=== PATIENT | male | born 1965 | race Asian ===

== ENCOUNTER 2020-07-02 07:53 | Outpatient (REF) | payer OTHER, SELFPAY ==
[2020-07-02 11:16] LABS: MANUAL DIFF FLAG NO
[2020-07-02 11:22] LABS: Basophils Absolute Auto 0.1 X10*3/uL (0.0-0.2); Basophils Percent Auto 1.4 % (0-2); Eosinophils Percent Auto 17.2 % (0-4); Hematocrit 26.9 % (42-52); Hemoglobin 8.1 g/dl (14.0-18.0); Imm Gran Abs Auto 0.01 X10*3/uL (0.00-0.03); Imm Gran Pct Auto 0.2 % (0.0-0.4); Lymphocytes Percent Auto 18.6 % (20-40); Mean Corpuscular HGB Conc 30.1 g/dl (31.0-36.0); Mean Corpuscular Hemoglobin 24.3 pg (27.0-33.0); Mean Corpuscular Volume 80.8 fL (80-98); Mean Platelet Volume 9.5 fL (9.4-12.4); Monocytes Absolute Auto 0.5 X10*3/uL (0.1-1.2); Neutrophils Percent Auto 53.6 % (45-73); Platelet Count 309 X10*3/uL (160-400); Red Blood Count 3.33 X10*6/uL (4.60-5.80); Red Cell Distribution Width 16.4 % (11.0-16.0); White Blood Count 5.5 X10*3/uL (4.8-10.8)
[2020-07-02 11:27] LABS: Glucose Urine UA NEG (NEG); Leukocyte Esterase Urine NEG (NEG); Nitrite Urine NEG (NEG); Urine Blood NEG (NEG); Urine Ketones NEG (NEG); Urine Protein TRACE MG/DL (NEG-TRACE)
[2020-07-02 11:28] LABS: Appearance Urine CLEAR; Color Urine YELLOW
[2020-07-02 11:49] LABS: Alanine Aminotransferase 11 U/L (0-40); Albumin Level 4.3 g/dL (3.5-5.0); Alkaline Phosphatase 77 U/L (39-117); Anion Gap 11 (12-20); Aspartate Amino Transferase 11 U/L (5-37); Bilirubin Total 0.3 mg/dL (0.0-1.0); Blood Urea Nitrogen 12 mg/dL (9-16); Calcium 8.4 mg/dL (8.4-10.2); Carbon Dioxide 26 mmol/L (22-29); Chloride 107 mmol/L (96-108); Cholesterol 136 mg/dL; Estimated Glomerular Filt Rate > 60; Glucose Fasting 90 mg/dL (60-99); HDL Cholesterol 40 mg/dL; LDL Cholesterol Calculated 76 mg/dl; Sodium 140 mmol/L (135-145); Total Protein 6.8 g/dL (6.5-8.0); Triglycerides 101 mg/dL
[2020-07-02 11:53] LABS: TSH reflex Free T4 1.75 mIU/mL (0.32-4.0)
== END 2020-07-02 07:54 | disposition home or self-care (01) ==
LOC: HO.HMGCLDS 07:53
PROVIDERS: PCP Internal Medicine; Visit Provider Internal Medicine
DX: I10 Essential (primary) hypertension (principal); E78.00 Pure hypercholesterolemia, unspecified
CPT/HCPCS: 36415; 80053; 80061; 81003; 84443; 85025

== ENCOUNTER 2021-01-02 17:00 | Outpatient (RCR) | payer OTHER, SELFPAY ==
--- NOTE | 2020-12-05 18:13 | MHC.PT.EP ---
[facility] [place] Office [place] Office [place] Office [address] Ibeth Coker [address] [phone] F: [phone] F: [phone] F: [phone] F: [phone] Physical Therapy Plan of Care Date of Evaluation: Date of Surgery: N/A Diagnosis: CVA; R hemiplegia Assessment: pt presents to physical therapy with pain, decreased range of motion, decreased strength, impaired functional mobility, impaired postural awareness, and gait deviations. pt is a poor candidate for skilled PT due to age, potential remediation of impairments, typical disease/condition progression and prognosis, comorbidities, and motivation. pt would benefit from tailored strengthening and stretching exercise program, functional training, gait training, postural re-training, neuromuscular re-education, modalities as needed for pain, equipment safety demonstration. Frequency and Duration: The patient will be seen 1x/wk for 4 wks Short Term Goals: pt will follow two step commands w/ minimal to no verbal cueing 3/3 attempts. Fdc Goals: pt will demo no hesitancy or pauses w/ ambulation on even ground using LRAD to reduce fall risk. Treatment Plan: Modalities to reduce pain, spasms and effusion. Manual therapy to restore motion and function. Therapeutic exercise to improve strength and flexibility. Neuromuscular re-education for posture and balance. Therapeutic activities to return to functional activities of daily living. Electronically signed by: Neema Hi PT, DPT Please sign and return to therapist. Thank you for your referral.
--- NOTE | 2021-01-02 18:02 | MHC.PT.DC ---
[facility] [place] Office [place] Office [place] Office [address] Ibeth Coker 140 [facility] [phone] F: [phone] F: [phone] F: [phone] F: [phone] Physical Therapy Discharge Report Diagnosis: CVA; R hemiplegia Date of Surgery: N/A Date of Evaluation: 12/05/20 Date of Discharge: 01/02/21 Treatments to Date: 5 Cancellations to Date: 0 No Shows to Date: 0 Discharge Status: Improved Function Independent with HEP Discharge Summary: Throughout this plan of care the patient had difficulty following instructions from this therapist as well as his . He would become upset when the exercise or activity was changed. He had poor eccentric control and poor carryover when instructed to slow the pace of the exercise down. The patient's was educated on safe transfers and safety features of the patient's wheelchair they were previously not aware of. Overall, the patient's stated he is ambulating more at home and his gait quality is better. I advised the patient and his to continue with the home exercise program for a month and if he appears to regress or needs his program updated to return to PT at that time. He is discharged from this physical therapy plan of care at this time. Electronically signed by: Neema Hi PT, DPT Please sign and return to therapist. Thank you for your referral.
== END 2021-01-02 18:03 | disposition home or self-care (01) ==
LOC: HO.PT 17:00
PROVIDERS: PCP Internal Medicine; Visit Provider Internal Medicine
DX: I63.9 Cerebral infarction, unspecified (principal); G81.91 Hemiplegia, unspecified affecting right dominant side
CPT/HCPCS: 97110; 97162; 97530

== ENCOUNTER 2021-02-09 08:09 | Outpatient (REF) | payer OTHER, SELFPAY ==
[2021-02-09 08:52] LABS: MANUAL DIFF FLAG NO
[2021-02-09 08:59] LABS: Basophils Absolute Auto 0.1 X10*3/uL (0.0-0.2); Basophils Percent Auto 1.4 % (0-2); Eosinophils Absolute Auto 0.7 X10*3/uL (0.0-0.4); Eosinophils Percent Auto 10.8 % (0-4); Hematocrit 46.4 % (42-52); Hemoglobin 15.1 g/dl (14.0-18.0); Imm Gran Abs Auto 0.01 X10*3/uL (0.00-0.03); Imm Gran Pct Auto 0.2 % (0.0-0.4); Lymphocytes Percent Auto 15.2 % (20-40); Mean Corpuscular HGB Conc 32.5 g/dl (31.0-36.0); Mean Corpuscular Hemoglobin 26.7 pg (27.0-33.0); Mean Platelet Volume 9.7 fL (9.4-12.4); Monocytes Absolute Auto 0.5 X10*3/uL (0.1-1.2); Neutrophils Absolute Auto 4.2 X10*3/uL (2.0-8.3); Neutrophils Percent Auto 64.4 % (45-73); Platelet Count 214 X10*3/uL (160-400); Red Blood Count 5.66 X10*6/uL (4.60-5.80); White Blood Count 6.5 X10*3/uL (4.8-10.8)
[2021-02-09 09:35] LABS: Alanine Aminotransferase 17 U/L (0-40); Albumin Level 4.1 g/dL (3.5-5.0); Alkaline Phosphatase 90 U/L (39-117); Anion Gap 11 (12-20); Aspartate Amino Transferase 14 U/L (5-37); Bilirubin Total 0.6 mg/dL (0.0-1.0); Blood Urea Nitrogen 12 mg/dL (9-16); Calcium 9.1 mg/dL (8.4-10.2); Carbon Dioxide 27 mmol/L (22-29); Chloride 107 mmol/L (96-108); Cholesterol 132 mg/dL; Estimated Glomerular Filt Rate > 60; Glucose Fasting 95 mg/dL (60-99); HDL Cholesterol 35 mg/dL; Iron 93 mcg/dL (45-160); LDL Cholesterol Calculated 66 mg/dl; Percent Iron Saturation 31 % (15-50); Potassium 3.8 mmol/L (3.3-5.1); Sodium 141 mmol/L (135-145); Total Iron Binding Capacity 300 mcg/dL (228-428); Total Protein 6.9 g/dL (6.5-8.0); Triglycerides 155 mg/dL; Unsaturated Iron Binding 207 ug/dL
[2021-02-09 09:38] LABS: Valproate 23.4 mcg/mL (50.0-100.0)
[2021-02-09 10:04] LABS: Vitamin D 25-OH Total 24.2 ng/mL (>30)
[2021-02-11 09:04] LABS: Folate 19.2 ng/mL (> or = 4.0); Vitamin B12 673 pg/mL (200-900)
== END 2021-02-09 08:10 | disposition home or self-care (01) ==
LOC: HO.LAB 08:09
PROVIDERS: PCP Internal Medicine; Visit Provider Internal Medicine
DX: I10 Essential (primary) hypertension (principal); D50.9 Iron deficiency anemia, unspecified; E78.00 Pure hypercholesterolemia, unspecified; F06.30 Mood disorder due to known physiological condition, unspecified; G81.91 Hemiplegia, unspecified affecting right dominant side; E55.9 Vitamin D deficiency, unspecified; Z86.73 Personal history of transient ischemic attack (TIA), and cerebral infarction without residual deficits
CPT/HCPCS: 36415; 80053; 80061; 80164; 82306; 82607; 82746; 83540; 85025

== ENCOUNTER 2021-05-29 17:00 | Outpatient (RCR) | payer OTHER, SELFPAY ==
--- NOTE | 2021-04-04 11:46 | MHC.PT.EP ---
[facility] [place] Office [place] Office [place] Office [address] Ibeth Coker [address] [phone] F: [phone] F: [phone] F: [phone] F: [phone] Physical Therapy Plan of Care Date of Evaluation: Date of Surgery: N/A Diagnosis: Cerebral infarction,unspecified Hemiplegia, unspecified affecting R dominant side Assessment: Pt is a 55yo M with a history of multiple CVA's affecting R dominant side. He was seen for PT at this facility from 12/05/20-01/02/21 and pt and report improvements in functional mobility while in PT. Today he presents with current impairments in safety, strength, endurance, sit<>stands, transfers, gait, and balance. He requires cues for safety and environmental set up during functional mobility. He is a fair candidate for skilled PT services due to chronicity of diagnosis and fair carry over of previous treatment however he will benefit from strength, balance, and gait interventions to improve mobility and prevent risk of falls. He will be seen for PT at this facility for 1x/week for 4 weeks and will be reassessed at that time to determine if further treatment is needed. Frequency and Duration: The patient will be seen 1x/week for 4 weeks Short Term Goals: Pt will follow 2 step commands with minimal cues 3/3 times Pt will perform sit<>stands with proper HP ~50% of the time Snf Goals: Pt will perform SPTs with improved safety and set up at least 90% of the time Pt and caregiver will demonstrate good carry over of w/c set up and transfer techniques Pt will ambulate short, household distances safely with LRAD with MS Treatment Plan: Modalities to reduce pain, spasms and effusion. Manual therapy to restore motion and function. Therapeutic exercise to improve strength and flexibility. Neuromuscular re-education for posture and balance. Therapeutic activities to return to functional activities of daily living. Electronically signed by: Leonie Castanon, PT, DPT Please sign and return to therapist. Thank you for your referral.
--- NOTE | 2021-06-04 11:59 | MHC.PT.DC ---
[facility] [place] Office [place] Office [place] Office [address] Ibeth Coker [address] [phone] F: [phone] F: [phone] F: [phone] F: [phone] Physical Therapy Discharge Report Diagnosis: Cerebral infarction,unspecified Hemiplegia, unspecified affecting R dominant side Date of Surgery: N/A Date of Evaluation: 04/03/21 Date of Discharge: 06/04/21 Treatments to Date: 7 Cancellations to Date: No Shows to Date: Discharge Status: Improved Function Independent with HEP Discharge Summary: Pt was seen for skilled PT services from 04/03/21-05/29/21. Pt made fair progress since SOC. He demonstrates improvements in strength and balance noted throughout functional mobility. He continues to be inconsistent with following 2 step commands during exercises. He has improved his hand placement during transfers most of the time, and has improved safety with sit<>stands. Pt and his caregiver continue to require cues for safety for proper set up of environment prior to stand pivot transfers with fair-good carry over. It is recommended he use a RW for functional mobility as he relies on UE's for support during gait. He was also recommended to follow up with his doctor regarding recommendations for transfer w/c. Pt is being D/C from skilled PT services as he has reached a functional plateau. Provided pt with printed, updated copy of HEP and pt and his verbalized understanding. Pt and his report no further questions or concerns for PT at last attended visit. No further skilled PT services indicated at this time. Electronically signed by: Leonie Castanon, PT, DPT Please sign and return to therapist. Thank you for your referral.
== END 2021-06-04 11:59 | disposition home or self-care (01) ==
LOC: HO.PT 17:00
PROVIDERS: PCP Internal Medicine; Visit Provider Internal Medicine
DX: I63.9 Cerebral infarction, unspecified (principal); G81.91 Hemiplegia, unspecified affecting right dominant side
CPT/HCPCS: 97110; 97116; 97140; 97162; 97530

== ENCOUNTER 2021-06-11 08:40 | Outpatient (REF) | payer OTHER, SELFPAY ==
[2021-06-11 09:02] LABS: MANUAL DIFF FLAG NO
[2021-06-11 09:19] LABS: Basophils Absolute Auto 0.1 X10*3/uL (0.0-0.2); Basophils Percent Auto 0.9 % (0-2); Eosinophils Absolute Auto 0.8 X10*3/uL (0.0-0.4); Eosinophils Percent Auto 10.5 % (0-4); Hemoglobin 15.2 g/dl (14.0-18.0); Imm Gran Abs Auto 0.02 X10*3/uL (0.00-0.03); Imm Gran Pct Auto 0.3 % (0.0-0.4); Lymphocytes Absolute Auto 1.1 X10*3/uL (1.2-4.9); Lymphocytes Percent Auto 14.5 % (20-40); Mean Corpuscular Hemoglobin 29.3 pg (27.0-33.0); Mean Corpuscular Volume 88.8 fL (80.0-98.0); Mean Platelet Volume 9.2 fL (9.4-12.4); Monocytes Absolute Auto 0.7 X10*3/uL (0.1-1.2); Monocytes Percent Auto 9.3 % (2-11); Neutrophils Percent Auto 64.5 % (45-73); Platelet Count 207 X10*3/uL (160-400); Red Blood Count 5.18 X10*6/uL (4.60-5.80); Red Cell Distribution Width 12.2 % (11.0-16.0); White Blood Count 7.7 X10*3/uL (4.8-10.8)
[2021-06-11 09:56] LABS: Alanine Aminotransferase 16 U/L (0-40); Alkaline Phosphatase 84 U/L (39-117); Anion Gap 10 (12-20); Aspartate Amino Transferase 13 U/L (5-37); Bilirubin Total 0.6 mg/dL (0.0-1.0); Blood Urea Nitrogen 12 mg/dL (9-16); Calcium 9.2 mg/dL (8.4-10.2); Carbon Dioxide 27 mmol/L (22-29); Chloride 108 mmol/L (96-108); Cholesterol 154 mg/dL; Estimated Glomerular Filt Rate > 60; Glucose Fasting 96 mg/dL (60-99); HDL Cholesterol 37 mg/dL; LDL Cholesterol Calculated 82 mg/dl; Sodium 141 mmol/L (135-145); Total Protein 6.8 g/dL (6.5-8.0); Triglycerides 176 mg/dL
[2021-06-11 10:21] LABS: TSH reflex Free T4 1.45 uIU/mL (0.32-4.0); Vitamin D 25-OH Total 46.2 ng/mL (>30)
== END 2021-06-11 08:41 | disposition home or self-care (01) ==
LOC: HO.LAB 08:40
PROVIDERS: PCP Internal Medicine; Visit Provider Internal Medicine
DX: E78.00 Pure hypercholesterolemia, unspecified (principal); I10 Essential (primary) hypertension; E55.9 Vitamin D deficiency, unspecified
CPT/HCPCS: 36415; 80053; 80061; 82306; 84443; 85025

== ENCOUNTER → 2021-12-02 14:45 | Outpatient (BNVA) | payer OTHER, SELFPAY | PROVIDERS: PCP Internal Medicine; Referring Provider Internal Medicine; Visit Provider Nurse Practitioner | DX: R13.12 Dysphagia, oropharyngeal phase (principal) | CPT/HCPCS: 99202 ==

== ENCOUNTER 2022-02-12 14:14 | Outpatient (REF) | payer OTHER, SELFPAY ==
--- NOTE | ~2022-02-12 | FL_ITS ---
EXAMINATION: XR BARIUM SWALLOW CLINICAL INFORMATION: Dysphagia. COMPARISON: None. TECHNIQUE: Routine modified barium swallow was performed under lateral fluoroscopy in the presence of the speech therapist. FINDINGS: Following oral administration of thin barium and barium-coated puree, there is premature spillage from the oral cavity and the pharynx with laryngeal aspiration. On oral administration of honey and nectar consistency barium there is penetration but no laryngeal aspiration is seen. The patient did not tolerate solid food coated with barium. FLUOROSCOPY TIME: 4.6 minutes. DOSE AREA PRODUCT: 16.982 uGy-m2 (microgray-meter squared). FL/FL barium swallow modified IMPRESSION: Nitish laryngeal aspiration with thin barium and barium-coated puree.
--- NOTE | 2022-02-21 17:28 | MHC.SL.IMP ---
Date of Plan of Treatment: 02/12/22 Onset of Symptoms/Illness: 02/12/17 Date Treatment Started: 02/12/22 Admitting Diagnosis: Dysphagia Vitamin D deficiency Hypertension High cholesterol CVA x 3 w/ right hemiplegia Mood disorder Iron deficiency anemia Primary Speech & Language Diagnosis: R13.12 Oropharyngeal Phase Dysphagia Secondary Speech & Language Diagnosis: R47.01 Aphasia Reason for Today's Visit: 79988 Modified Barium Swallow Study Pre-evaluation Dietary Consistencies: Regular Pre-evaluation Liquid Consistency: Thin Pre-evaluation Medication Administration: Whole with Liquid Medical History: [place], [place] Modified Barium Swallow Study Fluoroscopic Evaluation of Swallowing Function CPT Code 34004 Evaluation Year: 2021 Reason for Study: Patient displays overt s/s of aspiration. Referring Physician: Meghan [place] NP Evaluating Clinician: Tamela Shell MA, CCC-BLOOD BANK ATTENDANT Study Number: 1 Patient Name: Bebe Brual Status: Outpatient, Wheelchair Age: 56 Gender: Male MEDICAL HISTORY: Year of Onset or Diagnosis: 2021 Comorbidities: Dysphagia Vitamin D deficiency Hypertension High cholesterol CVA x 3 w/ right hemiplegia Mood disorder Iron deficiency anemia Current (pre-evaluation) Intake/Diet: Route: PO Diet Grade: Regular Liquid Consistencies: Thin Pre-Study Functional Oral Intake Scale (FOIS): 7- Total oral intake with no restrictions Pain: None reported at time of study SUBJECTIVE: Pt is a 56 year old male accompanied to this exam by his , Lainey, who assisted in providing background information included in this report. Pt was referred for a modified barium swallow study by Meghan BARRIOS of Gastroenterology d/t reports of dysphagia. Pt reportedly has difficulty swallowing solid food, foods such as rice, and sometimes liquids, and ?has an easier time eating foods such as yogurt and applesauce.? Pt?s reports that she cuts up all of pt?s food into very small pieces, especially meats. She says that pt often pours coffee on his food to make it easier to swallow. Pt?s reports that pt does not appear to ?use his tongue or his teeth to chew,? and ?will stick his fingers in his mouth to push the food back down.? Pt?s also reports intermittent coughing and choking, which she reports seems to happen at random. Pt?s reports pt had a stroke back in 2005, but did not seem to have trouble swallowing until recent years. She reports onset of dysphagia approximately 5 years ago, which seems to be worsening lately. Oral Motor Exam Mouth Occlusion: Normal Tongue Size: Normal Tongue Excursion Description: Incomplete Tongue Range of Movement Description: Reduced Tongue Speed of Movement Description: Reduced Tongue Strength of Movement (against opposing pressure): Reduced Food and Liquid Trials: Oral Impairment: Lip Closure: Did not test Oral Impairment: Tongue Control During Bolus Hold: 3=Posterior escape of greater than half of bolus Oral Impairment: Bolus Preparation/Mastication: Did not test Oral Impairment: Bolus Transport/Lingual Motion: 3=Repetitive/disorganized tongue motion Oral Impairment: Oral Residue: 2=Residue collection on oral structures Oral Impairment:Initiation of Pharyngeal Swallow: 3=Bolus head in pyriforms Pharyngeal Impairment: Soft Palate Elevation: 0=No bolus between soft palate (SP)/pharyngeal wall (PW) Pharyngeal Impairment: Laryngeal Elevation: 2=Minimal superior movement of thyroid cartilage (see description) Pharyngeal Impairment: Anterior Hyoid Excursion: 2=No anterior movement Pharyngeal Impairment: Epiglottic Movement: 2=No inversion Pharyngeal Impairment: Laryngeal Vestibular Closure:: 1=Incomplete: narrow column air/contrast in laryngeal vestibule Pharyngeal Impairment: Pharyngeal Stripping Wave: 1=Present: diminished Pharyngeal Impairment: Pharyngeal Contraction: Did not test Pharyngeal Impairment: Pharyngoesophageal Segment Openin=Complete distension and complete duration: no obstruction of flow Pharyngeal Impairment: Tongue Base (TB) Retraction: 3=Wide column of contrast/air between TB and posterior PW Pharyngeal Impairment: Pharyngeal Residue: 1=Trace residue within or on pharyngeal structures Pharyngeal Impairment: Esophageal Clearance Upright Position: Did not test Impressions and Recommendations Clinical Observations: OBJECTIVE: Time-out: performed at 02:45 Evaluation Start: 02:30; Stop: 02:40 Patient Positioning: Seated 70-90 degrees Viewing Planes: LATERAL ONLY Contrast: MBSImP? Standardized Protocol using commercially prepared, standardized Barium viscosities, including: Varibar? THIN LIQUID (40% w/v, <15 cps) , Varibar? NECTAR (40% w/v, <150-450 cps) , Varibar? THIN HONEY (40% w/v, <800-1800 cps) MBSImP ID: [id number] MBSImP Results: Lip closure for intraoral bolus containment could not be assessed due to logistical reasons not related to physiologic impairment. Tongue control during bolus hold allowed posterior escape of greater than half of the bolus. Bolus preparation and mastication received the highest impairment score; solid not given due to patient safety concerns related to oral impairment. Bolus transport/lingual motion was with repetitive/disorganized motion of the tongue. Oral residue was a collection on oral structures. Initiation of the pharyngeal swallow occurred when the bolus head was in the pyriform sinuses. Soft palate elevation resulted in no bolus between the soft palate and the pharyngeal wall. Laryngeal elevation was incomplete, as indicated through minimal superior movement of the thyroid cartilage with minimal approximation of the arytenoids to the epiglottic petiole. Anterior hyoid excursion demonstrated no movement. Epiglottic movement resulted in no inversion. Laryngeal vestibular closure was incomplete, with a narrow column of air/contrast noted within the laryngeal vestibule at the height of the swallow. Pharyngeal stripping wave was present, but diminished. Pharyngeal contraction could not be determined due to logistical reasons not related to physiologic impairment. Pharyngoesophageal segment opening was completely distended for complete duration with no obstruction of bolus flow. Tongue base retraction allowed a wide column of contrast or air between the retracted tongue base and the posterior pharyngeal wall. Pharyngeal residue was a trace within or on pharyngeal structures. Esophageal clearance in the upright position could not be assessed due to logistical reasons not related to physiologic impairment. Oral Impairment Score: 14 (absence of score, component 1) Pharyngeal Impairment Score: 11 (absence of score, component 13) Esophageal Impairment Score: --- (absence of score, component 17) Laryngeal Penetration and Aspiration: Both Penetration and Aspiration were observed in today's study. [place]-thick Contrast entered the airway, contacted the vocal folds, and was not ejected from the airway. Thin Contrast entered the airway, passed below the vocal folds, and no effort was made to eject. ASSESSMENT: Clinician Assessment: This exam was conducted by a multidisciplinary team, included a speech pathologist, radiologist, and porcelain technician. Pt was seated upright at 90 degree angle in a chair for this exam. Pt trialed the following liquid and solid consistencies: thin liquid barium by teaspoon, nectar thick liquid barium by teaspoon, honey thick liquid barium by teaspoon, pureed solid (mixture applesauce with barium paste). Pt presents with severe oropharyngeal dysphagia. Observed severe impairments of the oral phase. Poor tongue control and difficulty with bolus formation. There was escape of greater than 50% of bolus posteriorly prior to the initiation of the pharyngeal swallow trigger. Contrast pooled and collected in the valleculae and pyriform sinuses prior to initiation of the pharyngeal swallow. Pt was given a very small bite of ground chicken mixed with barium. Pt displayed minimal to no chewing of this consistency, eventually spitting it out entirely. Pt was unable to tolerate ground texture. Pt presented with characteristic tongue pumping movements. Pt?s tongue rocked with anterior to posterior motions repetitively for transport of bolus. There was mild residue coating the tongue. Pt presented with severe impairments of the pharyngeal phase of the swallow. Significant delay of pharyngeal swallow trigger, initiated as bolus head reached pyriform sinuses. There was no nasopharyngeal reflux. Minimal superior movement of the thyroid cartilage with no anterior hyoid displacement and minimal to no epiglottic inversion. Incomplete laryngeal vestibular closure resulting in episodes of aspiration and penetration. Trace pharyngeal residue subsequently cleared. There was no obstruction of flow through the pharyngoesophageal segment opening. With trial of thin liquid, trace amount of contrast entered the airway during the swallow, passing below the vocal folds and resulting in tracheal aspiration. Pt did not produce spontaneous protective cough. Pt was instructed to produce a volitional cough and was provided with models, but did not follow this command. Noted deep penetration with trial of nectar thick liquid, which did not clear from trachea. Patient did not have spontaneous cough and did not produce volitional cough as instructed. There was trace aspiration on residuals after the swallow with trial of applesauce. No evidence of aspiration or penetration with multiple trials of honey thick liquid by jie. Patient history with the following compensatory strategies is unknown. When employed during today's study, these strategies improved swallowing function: Honey-thick Liquid eliminated Penetration, Aspiration Bolus Volume Change decreased Penetration, Aspiration Additional Swallow(s) per Bolus eliminated Oral Residue, Pharyngeal Residue The following compensatory strategies appear to have had a negative impact on swallowing function: [place]-thick Liquid increased Penetration Recommendation for Speech Therapy: Outpatient Speech Therapy vs. Speech Therapy through [facility] PLAN: Intake Recommendations: Route: Partial PO/Partial Alternate Diet Grade: Liquid Consistencies: Honey Post-Study Functional Oral Intake Scale (FOIS): 5- Total oral intake of multiple consistencies requiring special preparation Safest consistency identified for oral intake based on observations made during this exam is honey thick, w/ no evidenced aspiration or penetration with multiple trials. Based on these objective results, concern lies in pt?s risk of aspiration and in his ability to maintain adequate nutrition and hydration on a conservative diet. Recommend consultations with pt?s MD, Gastroenterology, and Nutrition to determine if alternative means of nutrition is an appropriate option for this patient, w/ Partial PO when working with speech pathologist or for supplemental feeding (honey thick liquids). With the knowledge and understanding of the risks of aspiration, if the decision is made to keep pt on PO only and to forgo alternative means at this time, pt and his manager science may consider a pudding thick diet CONGEALED textures only with honey thick liquids by jie. Recommend select thick, more viscous, and thoroughly blended purees, such as pudding and thick yogurt, which form a cohesive bolus on the spoon. Avoid purees such as applesauce and pureed peaches, as these often separate into a mixed texture with thin liquid. As evidenced during our exam, pt is at risk of aspiration with this texture. Recommend strict aspiration precautions and a strict oral care routine to reduce risk of aspiration pneumonia: Use small sponge to remove dried secretions, wash with toothbrush and toothpaste, rinse with mouthwash that does not contain alcohol. Oral care to be provided before pt?s first meal and after each meal. Recommend speech therapy for dysphagia on an outpatient basis or through [facility], w/ follow-up MBSS post-treatment. Ultimate decision for nutritional intake is to be made by the patient, his caregiver/family, and his medical team with consideration of the totality of the patient, other concomitant conditions, and overall quality of life. Suggested Referrals: The patient might benefit from a referral to: Gastroenterology, Nutrition Services Therapy Recommendations: Therapy will be initiated Prognosis for Improvement: The prognosis for the patient to meet nutritional needs by mouth is fair based on degree of impairment, stimulability for treatment. Skilled Nursing Goals: ? The patient will tolerate the least restrictive diet with a safe/efficient swallow to maintain adequate nutrition and hydration. ? The patient will demonstrate improved swallowing function via repeat clinical evaluation, videoendoscopy/videofluoroscopy and/or patient self-rating scores. ? The patient and/or family will participate in further education for swallowing goals. Short Term Goals: ? Diet - The patient will tolerate a pudding thick diet, honey thick liquids without signs or symptoms of penetration/aspiration 100% of the time. ? Guidelines - The patient will comply with/recall the following guidelines/strategies 80% of the time with maximum cuing: Honey-thick Liquid, Bolus Volume Change, Rate of Ingestion Change, Bolus Hold, Additional Swallow(s) per Bolus, Effortful Swallow (used during PO intake). ? Independent Home Exercise - The patient will perform 10 repetitions of the Effortful Swallow, Soledad Maneuver, Irish Maneuver 3 times a day with 100% accuracy and maximum cuing as part of a home exercise program. ? Structured Therapy - The patient will demonstrate 100% accuracy and require maximum cuing in structured swallowing therapy with the BLOOD BANK ATTENDANT using the following exercises/therapy approaches and therapy assisted devices: Effortful Swallow, Soledad Maneuver, Irish Maneuver, . ? Education - The patient, family, caregiver will verbalize/demonstrate understanding of the results of this evaluation, the above recommendations, and the swallowing guidelines. Clinician - Supplemental, Miscellaneous Communication: It is important to note MBSS objective studies are snapshots in time and Patient function might vary with factors such as time of day or concomitant medical conditions. For this reason, the final treatment plan for this patient should rest with their medical care team. Additional recommendations should be considered with the totality of the Patient in mind. Thank for the opportunity to participate in the care of this patient. If you have any questions about the content of this report, please contact the [facility] at [facility]. Education: Education regarding findings from today's study and plans for therapy were provided to Patient and family/caregiver through Verbal Instruction, Written Instruction. Understanding was expressed by the Patient and family/caregiver. Keying Machine Operator Clinician/Clinical Fellow: No Supervisory Statement: N/A Speech Language Pathologist: Tamela Shell M.A., [facility]-BLOOD BANK ATTENDANT
== END 2022-02-12 14:15 | disposition home or self-care (01) ==
LOC: HO.XRAY 14:14
PROVIDERS: Visit Provider Nurse Practitioner
DX: R13.12 Dysphagia, oropharyngeal phase (principal)
CPT/HCPCS: 74230; 92611

== ENCOUNTER 2022-04-14 12:42 | Day surgery (SDC) | payer OTHER, SELFPAY ==
[2022-04-14 12:59] VITALS: BP 136/84; PULSE 70; RESP 16; TEMP 36.5; O2SAT 98; BMI 24.2
[2022-04-14] MEDS: Lactated Ringers 1,000 ML 50 ML IVCONT (13:09)
--- NOTE | 2022-04-14 13:38 | MHC.SHP ---
Pre-Procedural Eval Section A Date of Service: 04/14/22 The patient is an INPATIENT: No The History & Physical has been completed within 30 days and I have reviewed it.: No Section B Chief Complaint: Dysphagia, unspecified Relevant Family History (Specify if Yes): No Relevant Social History: None Present Medications: see Short Stay Collaborative assessment Medical History: Significant History (Hypertension High cholesterol CVA x3 with right hemiplegia Mood disorder Iron deficiency anemia) History of Previous Operations: Relevant previous surgery/procedure and date(s) (cyst removal) Allergies: Allergies Allergy/AdvReac Type Severity Reaction Status Date / Time No Known Allergies Allergy Verified 03/09/22 21:45 Review of Systems Sugical H&P ROS: Negative: Constitution, Cardiovascular and Respiratory and Yes, Specify: Neurological (status post CVA) and Gastrointestinal (dysphagia) Exam Surgical H&P Exam: Normal: Heart, Normal: Lungs, Normal: Extremities and Normal: Abdomen Plan Diagnosis/Plan: Unchanged I have reviewed the history and physical and performed a pertinent physical examination on my patient. No changes have occurred unless specified.
--- NOTE | 2022-04-14 14:28 | P.CONAN_ITS ---
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) (Acute) Pure hypercholesterolemia (Acute) Benign essential hypertension (Acute) CVA (cerebral vascular accident) (Acute) Past Medical History Medical History Benign essential hypertension Cerebrovascular accident (CVA) CVA (cerebral vascular accident) Iron deficiency anemia 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) Pure hypercholesterolemia Right hemiplegia Vitamin D deficiency Family History Family History Other Family history non-contributory Family history of problems with anesthesia: No Surgical History Surgical History No significant past surgical history History of Problems with Anesthesia: No Social History Social History Housing: House Alcohol intake: former Patient Tobacco Use Status: Never used Tobacco Second Hand Smoke Exposure: No Use of substances other than those prescribed or required for medical reasons: No Are you DNR?: No Advance Directives: No Advance Directives Information Provided: Yes Advance Directives on File: No service: No Current occupational status: disabled Cognitive needs: Yes (wheelchair) Hearing needs: No Vision needs: No Meds Allergies Allergy/AdvReac Type Severity Reaction Status Date / Time No Known Allergies Allergy Verified 03/09/22 21:45 Active Medications: Current Medications Lactated Ringer's (Lr) 1,000 mls @ 50 mls/hr IVCONT .Q20H ALBERT Last Admin: 04/14/22 13:09 Dose: 50 mls/hr Exam Exam Date and Time: April 14, 2022 1428 Height,Weight and Vital Signs: Height 5 ft 6 in Weight 68.039 kg Last Vital Signs Temp 97.7 F 04/14/22 12:59 Pulse 70 04/14/22 12:59 Resp 16 04/14/22 12:59 BP 136/84 10/31/22 12:59 Pulse Ox 98 04/14/22 12:59 O2 Del Method 04/14/22 12:59 Airway Mallampati Class: II TM Dist: >3cm Neck ROM: Full Denture: Upper Heart: rrr Lungs: cta Assessment and Plan Assessment Anesthesia Assessment: Anesthesia Plan Discussed and Chart Reviewed Final Anesthetic Review Family History of Problems with Anesthesia: No History of Problems with Anesthesia: No NPO: Yes ASA Class: III Final Preanesthetic Review: No Changes in Pt Med Stat, Meds/Allgs Chart Reviewed and Consent Obtained/Reviewed Patient Risk: Intermediate Procedure Risk: Intermediate Anesthetic Plan Anesthetic Plan: MAC: Disposition: Standard PACU
--- NOTE | 2022-04-14 14:35 | PM.OP ---
Brief Operative Note Date of Service: 04/14/22 Pre-op diagnosis: Oropharyngeal dysphagia Post-op diagnosis: other (Ulcerated esophageal mass, hiatal hernia) Procedure: EGD WITH BIOPSIES Surgeon: Karen Ricardo MD Anesthesia: MAC Was an Circuit Board Drafter used for this Procedure?: Yes Circuit Board Drafter: Feng Crowder Estimated blood loss (mL): 1 Pathology: other (a. esophagus bxs) Condition: stable Disposition: PACU
--- NOTE | 2022-04-14 14:35 | W.PM.OPN ---
Operative Note Operative Note Date of Service: 04/14/22 Narrative: Pre-op diagnosis: Oropharyngeal dysphagia Post-op diagnosis:?other (Ulcerated esophageal mass, hiatal hernia) Surgeon: Karen Ricardo MD Anesthesia:?MAC FLEXIBLE TRANSORAL UPPER GASTROINTESTINAL ENDOSCOPY WITH BIOPSIES Consent: Indications for the procedure and potential complications of bleeding, perforation, reaction to medications and missed diagnosis were discussed with the patient and informed consent was obtained. Instrument: Olympus GIF H 190 mid size upper endoscope Monitoring: Vital signs and clinical assessment, continuous EKG monitoring, Pulse oximetry, Carbon Dioxide monitoring and blood pressure monitoring were done throughout the procedure. Procedure: The patient was placed in the left lateral decubitis position and pre-procedure medications were administered and a bite block was placed. The endoscope was inserted into the mouth and advanced under direct vision to the third part of duodenum. A careful inspection was made as the upper endoscope was withdrawn including a retroflexed examination of the proximal stomach; Findings and interventions are described below. Findings: Larynx: Normal Esophagus: GE junction at 35 cms, hiatal hernia 35 to 40 cms. A 2 cms polypoidal ulcerated mass from 33 to 35 cms with partial narrowing - multiple biopsies were obtained. A mid size upper endoscope passed through the mass with minimal resistance. Stomach: Normal gastric mucos. Grade 4 flap valve on retroflexed examination of the cardia. Duodenum: Normal bulb and descending duodenum Intervention: Biopsies as noted above Impression and Post Procedure Diagnosis: Endoscopy Findings: ESOPHAGUS: GE junction at 35 cms, hiatal hernia 35 to 40 cms. A 2 cms polypoidal ulcerated mass from 33 to 35 cms with partial narrowing - multiple biopsies were obtained. A mid size upper endoscope passed through the mass with minimal resistance. Plan: Await pathology results. Further evaluation with Chest CT scan and referral to Oncology if biopsies confirm esophageal cancer. Patient has an appointment on 04/29/22 in the GI Clinic with Meghan Washington NP. Above findings were reviewed with the patient's (and HCP)
[2022-04-14 15:05] VITALS: BP 114/79; PULSE 77; RESP 16; TEMP 36.6; O2SAT 96
[2022-04-14 15:20] VITALS: BP 137/83; PULSE 80; RESP 16; O2SAT 97
[2022-04-14 15:35] VITALS: BP 144/89; PULSE 82; RESP 16; TEMP 36.5; O2SAT 98
== END 2022-04-14 15:15 | disposition home or self-care (01) ==
PROVIDERS: PCP Internal Medicine; Visit Provider Internal Medicine Gastroenterology
PROC: 0DJ08ZZ Inspection of Upper Intestinal Tract, Via Natural or Artificial Opening Endoscopic (ICD-10-PCS; CPT 43235; principal; 2022-04-14 13:30)
DX: R13.12 Dysphagia, oropharyngeal phase (principal); K22.10 Ulcer of esophagus without bleeding; K44.9 Diaphragmatic hernia without obstruction or gangrene; I10 Essential (primary) hypertension; I69.951 Hemiplegia and hemiparesis following unspecified cerebrovascular disease affecting right dominant side; D50.9 Iron deficiency anemia, unspecified; E78.00 Pure hypercholesterolemia, unspecified; E55.9 Vitamin D deficiency, unspecified; F39 Unspecified mood [affective] disorder; Z79.899 Other long term (current) drug therapy
CPT/HCPCS: 43239; 88305

== ENCOUNTER → 2022-04-29 15:13 | Outpatient (BNVA) | payer OTHER, SELFPAY | PROVIDERS: PCP Internal Medicine; Visit Provider Nurse Practitioner | DX: R13.12 Dysphagia, oropharyngeal phase (principal); K22.10 Ulcer of esophagus without bleeding; K59.00 Constipation, unspecified | CPT/HCPCS: 99212 ==

== ENCOUNTER 2022-05-22 16:00 | Outpatient (RCR) | payer OTHER, SELFPAY | END 2022-05-23 13:22 | disposition home health service (06) | LOC: HO.SH 16:00 | PROVIDERS: Visit Provider Internal Medicine | DX: R13.12 Dysphagia, oropharyngeal phase (principal) | CPT/HCPCS: 92526 ==

== ENCOUNTER → 2022-07-08 16:15 | Outpatient (BNVA) | payer OTHER, SELFPAY | PROVIDERS: PCP Internal Medicine; Visit Provider Nurse Practitioner | DX: K59.00 Constipation, unspecified (principal); K22.10 Ulcer of esophagus without bleeding; R13.12 Dysphagia, oropharyngeal phase | CPT/HCPCS: 99212 ==

== ENCOUNTER 2022-09-20 08:05 | Outpatient (REF) | payer OTHER, SELFPAY ==
[2022-09-20 08:17] LABS: MANUAL DIFF FLAG NO
[2022-09-20 08:46] LABS: Basophils Absolute Auto 0.1 X10*3/uL (0.0-0.2); Basophils Percent Auto 1.1 % (0-2); Eosinophils Absolute Auto 0.9 X10*3/uL (0.0-0.4); Eosinophils Percent Auto 14.3 % (0-4); Hematocrit 43.6 % (42.0-52.0); Hemoglobin 15.1 g/dl (14.0-18.0); Imm Gran Abs Auto 0.03 X10*3/uL (0.00-0.03); Imm Gran Pct Auto 0.5 % (0.0-0.4); Lymphocytes Percent Auto 16.1 % (20-40); Mean Corpuscular HGB Conc 34.6 g/dl (31.0-36.0); Mean Corpuscular Hemoglobin 29.6 pg (27.0-33.0); Mean Corpuscular Volume 85.5 fL (80.0-98.0); Monocytes Absolute Auto 0.6 X10*3/uL (0.1-1.2); Monocytes Percent Auto 9.9 % (2-11); Neutrophils Absolute Auto 3.7 x10*3/uL (2.0-8.3); Neutrophils Percent Auto 58.1 % (45-73); Platelet Count 213 X10*3/uL (160-400); Red Cell Distribution Width 12.2 % (11.0-16.0); White Blood Count 6.3 X10*3/uL (4.8-10.8)
[2022-09-20 08:54] LABS: Appearance Urine Clear; Color Urine Yellow; Glucose Urine UA Negative (Negative); Leukocyte Esterase Urine Trace (Negative); Nitrite Urine Negative (Negative); UMIC TRIGGER UACC YES; Urine Blood Negative (Negative); Urine Ketones Negative (Negative); Urine Protein 30 (1+) mg/dL (Neg-Trace)
[2022-09-20 08:57] LABS: Bacteria Urine None Seen (None Seen); Hyaline Casts Urine 0-2 /LPF (0-2); RBC Urine 0-2 /HPF (0-2); Squamous Epithelial Cell Urine 0-2 /HPF (0-2); WBC Urine 0-5 /HPF (0-5)
[2022-09-20 09:26] LABS: Alanine Aminotransferase 22 U/L (0-40); Alkaline Phosphatase 88 U/L (39-117); Anion Gap 10 (12-20); Aspartate Amino Transferase 16 U/L (5-37); Bilirubin Total 0.7 mg/dL (0.0-1.0); Blood Urea Nitrogen 12 mg/dL (9-16); Calcium 9.1 mg/dL (8.4-10.2); Carbon Dioxide 26 mmol/L (22-29); Chloride 109 mmol/L (96-108); Cholesterol 174 mg/dL; Estimated Glomerular Filt Rate 53; Glucose Fasting 90 mg/dL (60-99); HDL Cholesterol 38 mg/dL; LDL Cholesterol Calculated 92 mg/dl; Sodium 141 mmol/L (135-145); Total Protein 6.8 g/dL (6.5-8.0); Triglycerides 224 mg/dL
[2022-09-20 10:06] LABS: TSH reflex Free T4 2.48 uIU/mL (0.32-4.0)
[2022-09-20 10:47] LABS: Vitamin D 25-OH Total 33.8 ng/mL (>30)
== END 2022-09-20 08:06 | disposition home or self-care (01) ==
LOC: HO.LAB 08:05
PROVIDERS: PCP Internal Medicine; Visit Provider Internal Medicine
DX: E78.00 Pure hypercholesterolemia, unspecified (principal); E55.9 Vitamin D deficiency, unspecified; I10 Essential (primary) hypertension
CPT/HCPCS: 36415; 80053; 80061; 81001; 82306; 84443; 85025

== ENCOUNTER 2023-01-06 15:22 | Outpatient (AMB) | payer OTHER, SELFPAY ==
--- NOTE | 2023-01-06 15:34 | MHC.OFFVIS ---
Intake Vital Signs 01/06/23 15:40 Height 5 ft 6 in Weight 155 lb BMI 25.0 BP 115/76 Blood Pressure Location Lt brachial Position Sitting Pulse 64 Intake Visit Reasons: 6 month follow up Intake Note: Patient presents to in office visit today in follow up of dysphagia. CC: Patient's reports patient continues to have trouble swallowing but she has seen some improvement as he is not aspirating food as much. Denies other GI concerns today. Rotary Drum Tanner Required: Yes Rotary Drum Tanner Name: Accompanied by: Spouse Allergies No Known Allergies Allergy (Verified 01/06/23 15:37) HPI 6 month follow up HPI Details Assessment & Plan (1) Oropharyngeal dysphagia: ?Code(s): R13.12 - Dysphagia, oropharyngeal phase ?Plan: Verena # translates per patient request They went to the [facility] and she forgot to take the cimetidine, but his swallowing has been good with the sucralfate. They have not been called for repeat? EGD and the order had disappeared - I will re order. ROV 6 months or after EGD whichever comes first. (2) Constipation: ?Code(s): K59.00 - Constipation, unspecified (3) Esophageal erosions: ?Code(s): K22.10 - Ulcer of esophagus without bleeding ? ? ? Medications: Refilled cimetidine 400 mg PO BEDTIME 30 tabs 6RF ? ? sucralfate (Carafa te) 20 mL PO QNOON 1,0 00 mL 3RF K22.10 - Ulcer of esophagus without bleeding, K59.00 - Constipation, uns pecified ? . TODAY'S VISIT Nikky # translates per pt request He continues to has sustained improvement/relief from his swallowing issue in terms of aspiration. He will always have some problems due to the neurologic compromise but this was greatly worsened when he had the esophageal erosions. He has not taken the sucralfate for quite some time and he has sustained this improvement on the cimetidine which was started by myself when he 1st presented. I think this is fine so long as his swallowing remains at baseline as the medication was quite constipating for him. We will return to it only if we think he is having more trouble. 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) Pure hypercholesterolemia Right hemiplegia Vitamin D deficiency Surgical History History of esophagogastroduodenoscopy (EGD) Family History Other Family history non-contributory Social History Housing: House Alcohol intake: former Patient Tobacco Use Status: Never used Tobacco Second Hand Smoke Exposure: No service: No Current occupational status: disabled Cognitive needs: Yes (wheelchair) Hearing needs: No Vision needs: No Review of Systems Const Denies fatigue, Denies fever(s), Denies night sweats, Denies poor appetite and Denies weight loss ENT Reports Normal hearing present, Denies dental pain, Reports dysphagia, Denies hearing loss, Denies mouth pain, Denies odynophagia, Denies throat swelling, Denies tongue swelling and Reports other (Dentition adequate) Card Reports no additional complaints Resp Reports no additional complaints GI Denies abdominal pain, Denies melena, Denies bloating, Denies hematochezia, Denies constipation, Denies GI cramping, Reports dysphagia, Denies excessive flatus, Denies early satiety, Reports heartburn, Denies diarrhea, Denies nausea, Denies odynophagia, Denies vomiting and Denies hematemesis Skin/Breast Denies pruritus, Denies lesions, Denies rash and Denies jaundice Neuro Reports Normal hearing present and Denies Abnormal speech present Endo Denies fatigue Aller/Immun Denies throat swelling and Denies tongue swelling Physical Exam Vital Signs: Last Vital Signs Pulse 64 01/06/23 15:40 BP 115/76 01/06/23 15:40 BMI result Body Mass Index 25.0 Const General: cooperative, no acute distress, well developed and well groomed Nutritional Appearance: well nourished and overweight Orientation/consciousness: oriented to person, oriented to place and oriented to time Limitations: language barrier, physical limitations, wheelchair and other limitations HEENT Head: Yes normocephalic and Yes atraumatic Eyes General: appearance normal, both eyes and all related structures Pupils: Equal, round and reactive pupils present Neck Neck: Yes normal visual inspection and Yes no lymphadenopathy Thyroid: Thyroid normal Resp Effort & Inspection: normal respiratory effort and able to speak in complete sentences Auscultation: clear to auscultation bilaterally Cardio Rate: regular rate Rhythm: regular rhythm Heart sounds: Normal, physiologic split S2 sound present Peripheral pulses: radial pulses present and posterior tibial pulses present GI Inspection: No distended and No Abdominal panniculus present Palpation (GI): Soft to palpation, nontender, no guarding, not rigid and No hepatosplenomegaly present Percussion: Yes normal to percussion Auscultation: normal bowel sounds Rectal Exam - Male: Yes deferred Skin General skin exam: no rashes or lesions noted, turgor normal, skin not dry, no jaundice, No spider nevi and no striae Rashes: no rashes Nails: normal Neuro General: oriented to person, oriented to place and oriented to time Cranial nerves: Yes Equal, round and reactive pupils present and Yes Normal hearing present Speech: No Abnormal speech present Extrem General: Yes normal to inspection, No clubbing, No cyanosis and No edema Psych Appearance: grossly normal and well kempt Mental Status: mental status grossly normal Speech and movement: Mute speech present Affect: normal affect Attitude: cooperative Insight: Fair insight present (Psych) Judgement: Fair judgement present (Psych) Assessment & Plan Assessment & Plan (1) Esophageal erosions: Code(s): K22.10 - Ulcer of esophagus without bleeding Plan: Nikky # translates per pt request He continues to has sustained improvement/relief from his swallowing issue in terms of aspiration. He will always have some problems due to the neurologic compromise but this was greatly worsened when he had the esophageal erosions. He has not taken the sucralfate for quite some time and he has sustained this improvement on the cimetidine which was started by myself when he 1st presented. I think this is fine so long as his swallowing remains at baseline as the medication was quite constipating for him. We will return to it only if we think he is having more trouble. Return office visit in 6 months (2) Oropharyngeal dysphagia: Code(s): R13.12 - Dysphagia, oropharyngeal phase (3) Constipation: Code(s): K59.00 - Constipation, unspecified (4) Colon cancer screening: Comment: Pt does Cologuard with his PCP per Code(s): Z12.11 - Encounter for screening for malignant neoplasm of colon Medications: Refilled cimetidine 400 mg PO BEDTIME 30 tabs 6RF Discontinued bisacodyl (Dulcolax (bisacodyl)) Discontinued Reason: Doctor's Order 10 mg (2 x 5 mg) PO BEDTIME 30 days PRN 60 tabs 2RF constipation sucralfate (Carafate) Discontinued Reason: Doctor's Order 20 mL PO QNOON 1,000 mL 3RF K22.10 - Ulcer of esophagus without bleeding, K59.00 - Constipation, unspecified Coding Level of Care Code Est Pt Level 3 (41556) Diagnoses Esophageal erosions K22.10 Oropharyngeal dysphagia R13.12 Constipation K59.00 Colon cancer screening Z12.11
[2023-01-06 15:40] VITALS: BP 115/76; PULSE 64; BMI 25.0
== END 2023-01-06 15:55 | disposition home or self-care (01) ==
PROVIDERS: Visit Provider Nurse Practitioner
DX: K22.10 Ulcer of esophagus without bleeding (principal); R13.12 Dysphagia, oropharyngeal phase; K59.00 Constipation, unspecified; Z12.11 Encounter for screening for malignant neoplasm of colon
CPT/HCPCS: 99213

== ENCOUNTER → 2023-01-06 15:22 | Outpatient (BNVA) | payer OTHER, SELFPAY | PROVIDERS: Visit Provider Nurse Practitioner | DX: K22.10 Ulcer of esophagus without bleeding (principal); R13.12 Dysphagia, oropharyngeal phase; K59.00 Constipation, unspecified | CPT/HCPCS: 99212 ==

== ENCOUNTER 2023-01-16 16:02 | Outpatient (AMB) | payer OTHER, SELFPAY ==
[2023-01-16 16:07] VITALS: BP 112/70; PULSE 60; O2SAT 97; BMI 25.4
--- NOTE | 2023-01-16 16:07 | MHC.PC.OV ---
Vital Signs 01/16/23 16:07 Height 5 ft 6 in Weight 157 lb 3.033 oz BMI 25.4 BP 112/70 Blood Pressure Location Lt brachial Position Sitting Pulse 60 Pulse Source Pulse Oximeter Pulse Oximetry (%) 97 Oxygen Delivery Method Room Air Intake Visit Reasons: esophageal ulcer, hyperlipidemia Allergies No Known Allergies Allergy (Verified 01/16/23 16:42) Medication List - Last Reconciled 01/16/23 by Raman Torrez MD amlodipine 10 mg PO DAILY atorvastatin 10 mg PO BEDTIME cimetidine 400 mg PO BEDTIME clonidine HCl 0.1 mg PO BID 90 days losartan 100 mg PO DAILY 90 days quetiapine 25 mg PO BEDTIME [ROLLATOR with SEAT As directed] valproic acid 500 mg (2 x 250 mg) PO QAM vitamin B complex 1 cap PO DAILY Tobacco use date assessed: 09/15/22 Dental Screening Dental Screen Date: 01/16/23 Did you have a dental visit in the last 12 months?: No Did you have a dental problem in the last 6 months where you did not have access to dental care?: No Was dental information given to patient?: No HPI esophageal ulcer, hyperlipidemia HPI Details Patient comes in today for his follow up visit States that he feels okay He denies any headaches or dizziness Denies any chest pains, no SOB No nausea/vomiting, no abdominal pain No change in bowel habits noted His states that his swallowing has improved a lot and although he still has occasional difficulty swallowing/choking when eating, he has been eating a lot better and has actually gained a lot of weight since his last visit states that he eats a lot of rice mostly He was supposed to have a repeat EGD done this past spring but order for the procedure somehow got cancelled or misplaced Was seen by GI for follow up 1 to 2 weeks ago and as his symptoms appear to have improved a lot on his current Rx, was advised to just return in 6 months for follow up and can supposedly hold off on repeat EGD at this time His states that he had his follow up labs done a few days after his last visit with me in early September 2022 but has not had any other follow up labs done since [facility] Medical History Benign essential hypertension Cerebrovascular accident (CVA) CVA (cerebral vascular accident) Esophageal ulcer Iron deficiency anemia 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 1. Little interest or pleasure in doing things: not at all 2. Feeling down, depressed, or hopeless: not at all 3. Trouble falling or staying asleep, or sleeping too much: not at all 4. Feeling tired or having little energy: not at all 5. Poor appetite or overeating: not at all 6. Feeling bad about yourself - or that you are a failure or have let yourself or your family down: not at all 7. Trouble concentrating on things, such as reading the newspaper or watching television: not at all 8. Moving or speaking so slowly that other people could have noticed. Or the opposite - being so fidgety or restless that you have been moving around a lot more than usual: not at all 9. Thoughts that you would be better off or of hurting yourself in some way: not at all Total score: 0 Depression Screening Interpretation: Negative (is on Rx ) 87786 - PHQ-9 Billing: Yes Source: Developed by Drs. Feng Alcaraz, Rubia Galvan, Sulaiman Daniel and colleagues, with an educational rachele from [employer]. Thrive Questionnaire Date Thrive assessed: 09/15/22 AUDIT C Alcohol Use Questionnaire (AUDIT-C) 1. How often do you have a drink containing alcohol?: Never 3. How often do you have six or more drinks on one occasion?: Never Total Score: 0 Score Reviewed/Action Taken: Yes JAREK-7 AMB Questionnaire JAREK-7 Date JAREK - 7 assessed: 09/15/22 Source: Developed by Drs. Feng Alcaraz, Rubia Galvan, Sulaiman Daniel and colleagues, with an educational rachele from [employer]. Review of Systems Const Denies fatigue, Denies fever(s) and Denies headache(s) ENT Reports dysphagia ((+) improvement with speech & swallow therapy and Rx), Denies dizziness, Denies otalgia, Denies headache(s), Denies odynophagia and Denies sore throat Card Denies chest pain, Denies palpitations and Denies dyspnea Resp Denies cough and Denies dyspnea GI Denies abdominal pain, Denies constipation, Reports dysphagia ((+) improvement with speech & swallow therapy and Rx), Denies dyspepsia, Denies heartburn, Denies diarrhea, Denies nausea, Denies odynophagia and Denies vomiting Denies dysuria, Denies nocturia and Denies urinary frequency Neuro Details: (+) right-sided weakness (S/P CVA) Denies dizziness and Denies headache(s) Endo Denies fatigue and Denies palpitations Physical exam (Primary Care) Vital Signs: Last Vital Signs Pulse 60 01/16/23 16:07 BP 112/70 01/16/23 16:07 Pulse Ox 97 01/16/23 16:07 Oxygen Delivery Method Room Air 01/16/23 16:07 BMI result Body Mass Index 25.4 Tobacco/Smoking Status: Tobacco use Status Tobacco use date assessed 09/15/22 01/16/23 16:12 Patient Tobacco Use Status Never used Tobacco 01/16/23 16:12 PHQ-9: PHQ-9 Score PHQ-9: Total score 0 01/16/23 16:56 Depression Screening Interpretation: Negative (is on Rx ) Thrive Assessment: Date of Thrive Assessment Date Thrive assessed 09/15/22 01/16/23 16:12 Const Other: Information is obtained partially through patient's as he is limited in his ability to communicate due to his aphasia General: no acute distress and alert Limitations: wheelchair HENMT Ears: TM's normal bilaterally and EAC's normal Throat: Yes posterior oropharynx normal and Yes tonsils normal (no TP congestion noted) Neck Neck: Yes no lymphadenopathy and Yes supple Resp Auscultation: clear to auscultation bilaterally, no rales and no wheezes Cardio Rate: regular rate Rhythm: regular rhythm Heart sounds: no murmurs GI Palpation (GI): Soft to palpation and nontender Auscultation: normal bowel sounds Neuro Other: (+) right hemiparesis and (+) aphasia Extrem General: No clubbing, No cyanosis and Yes edema (1+ bipedal pitting edema noted) Results Reviewed Results Reviewed: Laboratory Tests 09/20/22 09/20/22 09/20/22 08:12 08:16 08:16 WBC 6.3 Hgb 15.1 Hct 43.6 Plt Count 213 Sodium 141 Potassium 4.0 Creatinine 1.37 Estimated GFR 53 Fasting Glucose 90 AST 16 ALT 22 Triglycerides 224 Cholesterol 174 LDL Cholesterol, Calc 92 HDL Cholesterol 38 25-OH Vitamin D Total 33.8 TSH 2.48 Ur Specific [place] 1.020 Urine Protein 30 (1+) H Urine Glucose (UA) Negative Urine Blood Negative Assessment and Plan Assessment & Plan (1) Esophageal ulcer: Comment: EGD done 03/2022 Code(s): K22.10 - Ulcer of esophagus without bleeding Qualifiers: Esophageal ulcer bleeding: without bleeding Qualified Code(s): K22.10 - Ulcer of esophagus without bleeding Plan: Esophageal biopsy done back in March 2022 revealed (+) cardiac-type mucosa with mild chronic inactive inflammation and no intestinal metaplasia seen. Lesions are polypoid, eroded and ulcerated squamous mucosa and fragment of ulcer bed but no malignancy is identified States that his symptoms of dysphagia and choking sensation have improved a lot over the past few months and he is currently eating very well, per his Continue Cimetidine 400 mg Q HS; was also on Carafate but he dislikes the taste of the medication and finds it constipating; has self-discontinued the medication a couple of months ago He was supposedly being scheduled for repeat EGD sometime this past spring but somehow this never occurred Was seen by GI last week and advised that since his symptoms have improved a lot, can hold off on repeat EGD at this time and to just follow up in 6 months unless symptoms flare up or recur again - follow up with GI as scheduled (2) Cerebrovascular accident (CVA): Comment: x3 (2002, 2005 and 2008) Code(s): I63.9 - Cerebral infarction, unspecified Qualifiers: CVA mechanism: unspecified Qualified Code(s): I63.9 - Cerebral infarction, unspecified Plan: S/P CVA x 3 years ago with residual right hemiparesis and aphasia states that patient's overall mobility and gait quality have improved a lot with physical therapy; will refer to physical therapy again on an as-needed basis (3) Right hemiplegia: Code(s): G81.91 - Hemiplegia, unspecified affecting right dominant side Plan: Patient's overall mobility and gait quality have reportedly improved a lot with physical and occupational therapy and will continue with PT/OT as scheduled or as needed (4) Aspiration of food: Code(s): T17.928A - Food in respiratory tract, part unspecified causing other injury, initial encounter Qualifiers: Encounter type: initial encounter Qualified Code(s): T17.928A - Food in respiratory tract, part unspecified causing other injury, initial encounter Plan: Modified barium swallow done last year revealed (+) martita laryngeal aspiration with thin barium and barium-coated puree He has been referred for swallowing evaluation and training/therapy, which he completed States that his issues with swallowing has improved a lot with swallow therapy (5) Benign essential hypertension: Code(s): I10 - Essential (primary) hypertension Plan: Reinforced low sodium diet - goal is systolic BP of at least 130 mm or less Continue Amlodipine 10 mg QD, Losartan 100 mg QD and Clonidine 0.1 mg BID (6) Pure hypercholesterolemia: Code(s): E78.00 - Pure hypercholesterolemia, unspecified Plan: He is again not able to get his follow up labs done recently as his states that she forgot to bring patient to the lab He did have his labs done last September 2022 a week after his last visit - results of these reviewed and discussed with patient and his He is cautioned that his cholesterol numbers back in September 2022 have all gone up slightly from before, especially his serum TG level which is over 220 mg/dl at the time Reinforced low cholesterol diet Continue Atorvastatin 10 mg QD Will have him recheck his labs in 4 months for follow up (7) Iron deficiency anemia: Code(s): D50.9 - Iron deficiency anemia, unspecified Qualifiers: Iron deficiency anemia type: unspecified iron deficiency Qualified Code(s): D50.9 - Iron deficiency anemia, unspecified Plan: Corrected on his last labs done in May 2021; iron studies done back in 2020 were also normal His H/H done back in September 2022 were normal Will repeat CBC in 4 months for follow up (8) Vitamin D deficiency: Code(s): E55.9 - Vitamin D deficiency, unspecified Plan: Continue Vitamin D3 2000 units QD (9) 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 Panel Fast 05/11/23 E78.00 - Pure hypercholesterolemia, unspecified Lipid Panel 05/11/23 E78.00 - Pure hypercholesterolemia, unspecified TSH reflex Free T4 05/11/23 E78.00 - Pure hypercholesterolemia, unspecified Vitamin D 25-OH Total 05/11/23 E55.9 - Vitamin D deficiency, unspecified Complete Blood Count Auto Diff 05/11/23 I10 - Essential (primary) hypertension UA CC w/rflx Micro + Cult 05/11/23 R30.0 - Dysuria Coding Level of Care Code Est Pt Level 4 (03569) Diagnoses Esophageal ulcer K22.10 Esophageal ulcer bleeding: without bleeding Cerebrovascular accident (CVA) I63.9 CVA mechanism: unspecified Right hemiplegia G81.91 Aspiration of food T17.928A Encounter type: initial encounter Benign essential hypertension I10 Pure hypercholesterolemia E78.00 Iron deficiency anemia D50.9 Iron deficiency anemia type: unspecified iron deficiency Vitamin D deficiency E55.9 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
== END 2023-01-16 16:45 | disposition home or self-care (01) ==
PROVIDERS: PCP Internal Medicine; Visit Provider Internal Medicine
DX: I69.351 Hemiplegia and hemiparesis following cerebral infarction affecting right dominant side (principal); I10 Essential (primary) hypertension; E55.9 Vitamin D deficiency, unspecified; E78.00 Pure hypercholesterolemia, unspecified; D50.9 Iron deficiency anemia, unspecified
CPT/HCPCS: 99214

== ENCOUNTER 2023-05-26 16:20 | Outpatient (REF) | payer OTHER, SELFPAY ==
[2023-05-26 16:33] LABS: MANUAL DIFF FLAG NO
[2023-05-26 17:03] LABS: Basophils Absolute Auto 0.1 X10*3/uL (0.0-0.2); Basophils Percent Auto 1.7 % (0-2); Eosinophils Absolute Auto 1.1 X10*3/uL (0.0-0.4); Eosinophils Percent Auto 16.7 % (0-4); Hemoglobin 15.5 g/dl (14.0-18.0); Imm Gran Abs Auto 0.02 X10*3/uL (0.00-0.03); Imm Gran Pct Auto 0.3 % (0.0-0.4); Lymphocytes Percent Auto 15.2 % (20-40); Mean Corpuscular HGB Conc 34.4 g/dl (31.0-36.0); Mean Corpuscular Hemoglobin 29.8 pg (27.0-33.0); Mean Corpuscular Volume 86.4 fL (80.0-98.0); Mean Platelet Volume 9.6 fL (9.4-12.4); Monocytes Absolute Auto 0.5 X10*3/uL (0.1-1.2); Monocytes Percent Auto 7.4 % (2-11); Neutrophils Absolute Auto 3.9 x10*3/uL (2.0-8.3); Neutrophils Percent Auto 58.7 % (45-73); Platelet Count 215 X10*3/uL (160-400); Red Blood Count 5.21 X10*6/uL (4.60-5.80); Red Cell Distribution Width 11.9 % (11.0-16.0); White Blood Count 6.6 X10*3/uL (4.8-10.8)
[2023-05-26 17:10] LABS: Appearance Urine Clear; Color Urine Yellow; Glucose Urine UA Negative (Negative); Leukocyte Esterase Urine Negative (Negative); Nitrite Urine Negative (Negative); PH 5.5 (5.0-9.0); Specific Gravity - Urine <= 1.005 (1.005-1.025); Urine Blood Negative (Negative); Urine Ketones Negative (Negative); Urine Protein Negative (Neg-Trace)
[2023-05-26 17:33] LABS: Alanine Aminotransferase 17 U/L (0-40); Albumin Level 4.2 g/dL (3.5-5.0); Alkaline Phosphatase 94 U/L (39-117); Anion Gap 12 (12-20); Aspartate Amino Transferase 16 U/L (5-37); Bilirubin Total 0.4 mg/dL (0.0-1.0); Blood Urea Nitrogen 12 mg/dL (9-16); Calcium 9.2 mg/dL (8.4-10.2); Carbon Dioxide 23 mmol/L (22-29); Chloride 107 mmol/L (96-108); Cholesterol 151 mg/dL (<200); Estimated Glomerular Filt Rate 49; Glucose Fasting 132 mg/dL (60-99); HDL Cholesterol 39 mg/dL (>40); LDL Cholesterol Calculated 85 mg/dL (<100); Potassium 3.5 mmol/L (3.3-5.1); Sodium 138 mmol/L (135-145); Total Protein 7.4 g/dL (6.5-8.0); Triglycerides 137 mg/dL (<150)
[2023-05-26 17:52] LABS: Vitamin D 25-OH Total 26.6 ng/mL (>30)
== END 2023-05-26 16:21 | disposition home or self-care (01) ==
LOC: HO.LAB 16:20
PROVIDERS: PCP Internal Medicine; Visit Provider Internal Medicine
DX: I10 Essential (primary) hypertension (principal); E78.00 Pure hypercholesterolemia, unspecified; R30.0 Dysuria; E55.9 Vitamin D deficiency, unspecified
CPT/HCPCS: 36415; 80053; 80061; 81003; 82306; 84443; 85025

== ENCOUNTER 2023-05-29 16:34 | Outpatient (AMB) | payer OTHER, SELFPAY ==
[2023-05-29 16:36] VITALS: BP 116/70; PULSE 65; O2SAT 99; BMI 25.6
--- NOTE | 2023-05-29 16:36 | A.OFFPC_ITS ---
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: No Accompanied by: Self / Same As Patient Allergies No Known Allergies Allergy (Verified 05/29/23 17:03) Medication List - Last Reconciled 05/29/23 by Raman Torrez MD amlodipine 10 mg PO DAILY atorvastatin 10 mg PO BEDTIME cimetidine 400 mg PO BEDTIME clonidine HCl 0.1 mg PO BID 90 days losartan 100 mg PO DAILY 90 days quetiapine 25 mg PO BEDTIME [ROLLATOR with SEAT As directed] valproic acid 500 mg (2 x 250 mg) PO QAM vitamin B complex 1 cap PO DAILY Tobacco use date assessed: 05/29/23 Dental Screening Dental Screen Date: 05/29/23 Did you have a dental visit in the last 12 months?: Yes Did you have a dental problem in the last 6 months where you did not have access to dental care?: No Was dental information given to patient?: Patient has dentist HPI HTN, hyperlipidemia, CVA, gastric ulcer HPI Details Patient comes in today for his follow up visit He reports experiencing recurrent pain over both of his eyes for the past 6 months Notes that his eye pain seems to occur mostly at nighttime His states that she forgot to mention this at his previous visit Patient also reports that he's had some blurring of his vision lately His adds that patient still gets up and tries to walk and move around at home whenever her can but his right leg seems to be getting weaker again lately States that he feels okay otherwise He denies any headaches or dizziness Denies any chest pains, no SOB No nausea/vomiting, no abdominal pain No change in bowel habits noted Adds that his current wheelchair, which is about 7 years old, is starting to wear out and they would like to get an Rx for a new one - would like to get it 1 size bigger as he has gotten bigger over the years for his old one, which is a small sized wheelchair Had his follow up labs done a few days ago - to discuss his results [facility] Medical History Esophageal ulcer Vitamin D deficiency Iron deficiency anemia Right hemiplegia Cerebrovascular accident (CVA) 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) Pure hypercholesterolemia Benign essential hypertension CVA (cerebral vascular accident) Surgical History History of esophagogastroduodenoscopy (EGD) Family History Other Family history non-contributory Social History Housing: House Alcohol intake: former Patient Tobacco Use Status: Never used Tobacco e-Cigarette/Vaping Use: Never Used Second Hand Smoke Exposure: No service: No Current occupational status: disabled Cognitive needs: Yes (wheelchair) Hearing needs: No Vision needs: No Questionnaire PHQ-9 Over the last 2 weeks, how often have you been bothered by any of the following problems? 1. Little interest or pleasure in doing things: not at all 2. Feeling down, depressed, or hopeless: not at all 3. Trouble falling or staying asleep, or sleeping too much: not at all 4. Feeling tired or having little energy: not at all 5. Poor appetite or overeating: not at all 6. Feeling bad about yourself - or that you are a failure or have let yourself or your family down: not at all 7. Trouble concentrating on things, such as reading the newspaper or watching television: not at all 8. Moving or speaking so slowly that other people could have noticed. Or the opposite - being so fidgety or restless that you have been moving around a lot more than usual: not at all 9. Thoughts that you would be better off or of hurting yourself in some way: not at all Total score: 0 Depression Screening Interpretation: Negative (is on Rx) Depression Screening Done: Yes [id number] - PHQ-9 Billing: Yes Source: Developed by Drs. Feng Alcaraz, Rubia Galvan, Sulaiman Daniel and colleagues, with an educational rachele from [employer]. Thrive Questionnaire Date Thrive assessed: 05/29/23 I am a: Patient What is your living situation today?: I have a steady place to live Within the past 12 months, did the food you bought not last and you didn't have the money to get more?: Never true Within the past 12 months, did you worry whether your food would run out before you got money to buy more?: Never true Do you have trouble paying for medicines?: No Do you have trouble getting transportation to medical appointments?: No Do you have trouble paying your heating and electricity bill?: No Do you have trouble taking care of your child, family member or friend?: No Do you have trouble with day-to-day activities such as bathing, preparing meals, shopping, managing finances, etc.?: No Are you currently unemployed and looking for a job?: No Are you interested in more education?: No Please select the resources that you would like help with: None Currently or been in a relationship where the following occur: no concerns reported AUDIT C Alcohol Use Questionnaire (AUDIT-C) 1. How often do you have a drink containing alcohol?: Never 3. How often do you have six or more drinks on one occasion?: Never Total Score: 0 Score Reviewed/Action Taken: Yes JAREK-7 AMB Questionnaire JAREK-7 Date JAREK - 7 assessed: 05/29/23 Feeling nervous, anxious, or on edge: 0 = Not at all Not being able to stop or control worryin = Not at all Worrying too much about different things: 0 = Not at all Trouble relaxin = Not at all Being so restless that it is hard to sit still: 0 = Not at all Becoming easily annoyed or irritable: 0 = Not at all Feeling afraid as if something awful might happen: 0 = Not at all Total JAREK-7 score (0-4 normal; 5-9 mild; 10-14 moderate; 15-21 severe): 0 Source: Developed by Drs. Feng Alcaraz, Rubia Galvan, Sulaiman aDniel and colleagues, with an educational rachele from [employer]. Review of Systems Const Denies chills, Denies fatigue, Denies fever(s) and Denies headache(s) ENT Reports dysphagia ((+) improvement with speech & swallow therapy and Rx), Denies dizziness, Denies otalgia, Denies headache(s), Denies neck pain, Denies odynophagia and Denies sore throat Card Denies chest pain, Denies palpitations and Denies dyspnea Resp Denies cough and Denies dyspnea GI Denies abdominal pain, Denies constipation, Reports dysphagia ((+) improvement with speech & swallow therapy and Rx), Denies dyspepsia, Denies heartburn, Denies diarrhea, Denies nausea, Denies odynophagia and Denies vomiting Denies dysuria, Denies nocturia and Denies urinary frequency Musc Denies back pain and Denies neck pain Skin/Breast Denies rash Neuro Details: (+) right-sided weakness (S/P CVA) Denies dizziness and Denies headache(s) Endo Denies fatigue and Denies palpitations Physical exam (Primary Care) Vital Signs: Last Vital Signs Pulse 65 05/29/23 16:36 BP 116/70 05/29/23 16:36 Pulse Ox 99 05/29/23 16:36 Oxygen Delivery Method Room Air 05/29/23 16:36 BMI result Body Mass Index 25.6 Tobacco/Smoking Status: Tobacco use Status Tobacco use date assessed 05/29/23 05/29/23 16:38 Patient Tobacco Use Status Never used Tobacco 05/29/23 16:38 e-Cigarette/Vaping Use Never Used 05/29/23 16:38 PHQ-9: PHQ-9 Score PHQ-9: Total score 0 05/29/23 17:10 Depression Screening Interpretation: Negative (is on Rx) Thrive Assessment: Date of Thrive Assessment Date Thrive assessed 05/29/23 05/29/23 16:38 Currently or been in a relationship where the following occur: no concerns reported Const Other: Information is obtained partially through patient's as he is limited in his ability to communicate due to his aphasia General: no acute distress and alert Limitations: wheelchair HENMT Ears: TM's normal bilaterally and EAC's normal Throat: Yes posterior oropharynx normal and Yes tonsils normal (no TP congestion noted) Neck Neck: Yes no lymphadenopathy and Yes supple Resp Auscultation: clear to auscultation bilaterally, no rales and no wheezes Cardio Rate: regular rate Rhythm: regular rhythm Heart sounds: no murmurs GI Palpation (GI): Soft to palpation and nontender Auscultation: normal bowel sounds Neuro Other: (+) right hemiparesis and (+) aphasia Extrem General: No clubbing, No cyanosis and Yes edema (1+ bipedal pitting edema noted) Results Reviewed Results Reviewed: Laboratory Tests 05/26/23 05/26/23 16:27 16:31 WBC 6.6 Hgb 15.5 Hct 45.0 Plt Count 215 Sodium 138 Potassium 3.5 Creatinine 1.48 H Estimated GFR 49 Fasting Glucose 132 H Calcium 9.2 AST 16 ALT 17 Triglycerides 137 Cholesterol 151 LDL Cholesterol, Calc 85 HDL Cholesterol 39 L 25-OH Vitamin D Total 26.6 L TSH 1.40 Ur Specific Thurman <= 1.005 Urine Protein Negative Urine Glucose (UA) Negative Urine Blood Negative Assessment and Plan Assessment & Plan (1) Esophageal ulcer: Comment: EGD done 03/2022 Code(s): K22.10 - Ulcer of esophagus without bleeding Qualifiers: Esophageal ulcer bleeding: without bleeding Qualified Code(s): K22.10 - Ulcer of esophagus without bleeding Plan: Esophageal biopsy done back in March 2022 revealed (+) cardiac-type mucosa with mild chronic inactive inflammation and no intestinal metaplasia seen. Lesions are polypoid, eroded and ulcerated squamous mucosa and fragment of ulcer bed but no malignancy is identified States that his symptoms of dysphagia and choking sensation have improved a lot over the past few months and he is currently eating very well, per his Continue Cimetidine 400 mg Q HS; was also on Carafate but he dislikes the taste of the medication and finds it constipating; has self-discontinued the medication a few months ago He was supposedly being scheduled for repeat EGD sometime this past spring but somehow this never occurred Was seen by GI a few months ago and advised that since his symptoms have improved a lot, can hold off on repeat EGD at this time and to just follow up in 6 months unless symptoms flare up or recur again Follow up with GI as scheduled (2) Cerebrovascular accident (CVA): Comment: x3 (2002, 2005 and 2008) Code(s): I63.9 - Cerebral infarction, unspecified Qualifiers: CVA mechanism: unspecified Qualified Code(s): I63.9 - Cerebral infarction, unspecified Plan: S/P CVA a few years ago with residual right hemiparesis and aphasia states that patient's overall mobility and gait quality have improved a lot with physical therapy Will refer him to physical therapy again on an as-needed basis (3) Right hemiplegia: Code(s): G81.91 - Hemiplegia, unspecified affecting right dominant side Plan: Patient's overall mobility and gait quality have reportedly improved a lot with physical and occupational therapy and will continue with PT/OT as scheduled or as needed His states that his right-sided weakness seems to have gotten worse again recently - will refer him to physiatry for further management Could also consider referring him back to physical therapy as well Per request, Rx for a new wheelchair unit is provided to patient (4) Aspiration of food: Code(s): T17.928A - Food in respiratory tract, part unspecified causing other injury, initial encounter Qualifiers: Encounter type: initial encounter Qualified Code(s): T17.928A - Food in respiratory tract, part unspecified causing other injury, initial encounter Plan: Modified barium swallow done last year revealed (+) martita laryngeal aspiration with thin barium and barium-coated puree He has been referred for swallowing evaluation and training/therapy, which he completed States that his issues with swallowing has improved a lot with swallow therapy (5) Benign essential hypertension: Code(s): I10 - Essential (primary) hypertension Plan: Reinforced low sodium diet - goal is systolic BP of at least 130 mm or less Continue Amlodipine 10 mg QD, Losartan 100 mg QD and Clonidine 0.1 mg BID (6) Pure hypercholesterolemia: Code(s): E78.00 - Pure hypercholesterolemia, unspecified Plan: Results of his labs done a few days ago reviewed and discussed with patient and his - all of his cholesterol numbers have improved significantly with Rx Reinforced low cholesterol diet Continue Atorvastatin 10 mg QD Will have him recheck his labs and fasting lipids in 4 months for follow up (7) Impaired fasting glucose: Code(s): R73.01 - Impaired fasting glucose Plan: Patient is cautioned that his FBS has increased significantly on his recent labs - was at 132 mg/dl on his labs done a few days ago Reinforced low calorie/low carb diet - his states that patient has been eating a lot of rice lately He is cautioned that he currently appears to have borderline diabetes/impaired fasting glucose and if he is not careful, he will continue to progress to diabetes down the road and will require additional Rx and maybe even insulin injections Will recheck his FBS and also his HgbA1c in a few months for follow up/further evaluation (8) Renal insufficiency: Code(s): N28.9 - Disorder of kidney and ureter, unspecified Plan: Patient is cautioned that his serum creatinine and GFR have both declined on his recent labs and he now appears to be in early stage 3 CKD Discussed that thia may potentially be due to his elevated blood sugar readings lately and we will need to keep a close eye on this Will recheck his labs and renal function in 4 months for follow up (9) Iron deficiency anemia: Code(s): D50.9 - Iron deficiency anemia, unspecified Qualifiers: Iron deficiency anemia type: unspecified iron deficiency Qualified Code(s): D50.9 - Iron deficiency anemia, unspecified Plan: Corrected on his last labs done in May 2021; iron studies done back in 2020 were also normal His H/H done back in September 2022 and those from a few days ago were all normal Will continue to monitor his CBC periodically (10) Vitamin D deficiency: Code(s): E55.9 - Vitamin D deficiency, unspecified Plan: He is advised that his Vitamin D level is low and has declined from previous Will start him back on Vitamin D3 2000 units QD (11) Pain of both eyes: Code(s): H57.13 - Ocular pain, bilateral Plan: Will refer him to ophthalmology for further evaluation and management (12) 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): Code(s): I63.9 - Cerebral infarction, unspecified; F06.30 - Mood disorder due to known physiological condition, unspecified Plan: Continue Valproic Acid 500 mg Q AM and Quetiapine?25 mg Q HS Plan Follow up in 4 months Orders: Orders Complete Blood Count Auto Diff 4 Months I10 - Essential (primary) hypertension, I63.9 - Cerebral infarction, unspecified Comprehensive [place]. Panel Fast 4 Months E78.00 - Pure hypercholesterolemia, unspecified, I63.9 - Cerebral infarction, unspecified Vitamin D 25-OH Total 4 Months E55.9 - Vitamin D deficiency, unspecified, I63.9 - Cerebral infarction, unspecified Lipid Panel 4 Months E78.00 - Pure hypercholesterolemia, unspecified, I63.9 - Cerebral infarction, unspecified TSH reflex Free T4 4 Months E78.00 - Pure hypercholesterolemia, unspecified, I63.9 - Cerebral infarction, unspecified UA CC w/rflx Micro + Cult 4 Months I63.9 - Cerebral infarction, unspecified, R30.0 - Dysuria Vitamin B12 and Folate 4 Months E53.8 - Deficiency of other specified B group vitamins, I63.9 - Cerebral infarction, unspecified Hemoglobin A1c 4 Months R73.01 - Impaired fasting glucose Referrals Ophthalmology Referral H53.8 - Other visual disturbances, H57.13 - Ocular pain, bilateral Physiatry Referral G81.91 - Hemiplegia, unspecified affecting right dominant side, I63.9 - Cerebral infarction, unspecified Medications: New cholecalciferol (vitamin D3) 50 mcg PO DAILY 90 days 90 caps 3RF E55.9 - Vitamin D deficiency, unspecified [LIGHTWEIGHT FOLDING WHEELCHAIR (medium)] As directed 1 ea 0RF G81.91 - Hemiplegia, unspecified affecting right dominant side, I63.9 - Cerebral infarction, unspecified Coding Level of Care Code Est Pt Level 4 (82538) Diagnoses Ulcer of esophagus without bleeding K22.10 Esophageal ulcer bleeding: without bleeding Cerebrovascular accident (CVA), unspecified mechanism I63.9 CVA mechanism: unspecified Right hemiplegia G81.91 Aspiration of food, initial encounter T17.928A Encounter type: initial encounter Benign essential hypertension I10 Pure hypercholesterolemia E78.00 Impaired fasting glucose R73.01 Renal insufficiency N28.9 Iron deficiency anemia, unspecified iron deficiency anemia type D50.9 Iron deficiency anemia type: unspecified iron deficiency Vitamin D deficiency E55.9 Pain of both eyes H57.13 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
== END 2023-05-29 17:40 | disposition home or self-care (01) ==
PROVIDERS: PCP Internal Medicine; Visit Provider Internal Medicine
DX: K22.10 Ulcer of esophagus without bleeding (principal); I69.351 Hemiplegia and hemiparesis following cerebral infarction affecting right dominant side; T17.928A Food in respiratory tract, part unspecified causing other injury, initial encounter; I10 Essential (primary) hypertension; E78.00 Pure hypercholesterolemia, unspecified; R73.01 Impaired fasting glucose; N28.9 Disorder of kidney and ureter, unspecified; D50.9 Iron deficiency anemia, unspecified; E55.9 Vitamin D deficiency, unspecified; H57.13 Ocular pain, bilateral; F06.30 Mood disorder due to known physiological condition, unspecified
CPT/HCPCS: 99214

== ENCOUNTER 2023-06-18 11:10 | Outpatient (AMB) | payer OTHER, SELFPAY ==
--- NOTE | 2023-06-18 11:41 | MHC.OFFVIS ---
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 His son states he has weakness when lifting his leg. Jonathan recent falls, numbness or tingling. Allergies No Known Allergies Allergy (Verified 06/18/23 11:45) Medication List - Last Reconciled 06/18/23 by Cece Thao MD amlodipine 10 mg PO DAILY atorvastatin 10 mg PO BEDTIME cholecalciferol (vitamin D3) 50 mcg PO DAILY 90 days cimetidine 400 mg PO BEDTIME clonidine HCl 0.1 mg PO BID 90 days [LIGHTWEIGHT FOLDING WHEELCHAIR (medium) As directed] losartan 100 mg PO DAILY 90 days quetiapine 25 mg PO BEDTIME [ROLLATOR with SEAT As directed] valproic acid 500 mg (2 x 250 mg) PO QAM vitamin B complex 1 cap PO DAILY HPI HPI Comments History of Present Illness Details Here with son Guerrero. Stroke more than 15 years, total of 3-4 strokes over the years, last stroke was not later than 2011. Expressive aphasia. Son does not know which side his strokes were but his weakness affects both sides per son but other medical records indicated right hemiparesis. Walks in the house, with walker, slowly. Outside house needs WC. Dresses himself independently. Toilet independently. Needs assistance with bathing. Eats independently. Diet requires minced food and liquid thickener. No seizures. Does not follow a neurologist. PCP is Dr. Dougherty. His strokes were in the [facility]. They moved to [facility] 5 years ago. Has not had any rehab or therapy in the [place] He shakes his head when I ask about pain or tightness. Son says that when he does complain, he would say right hip or foot. Son reports that when he has to walk an incline, he has difficulty. 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) Pure hypercholesterolemia Benign essential hypertension CVA (cerebral vascular accident) Surgical History History of esophagogastroduodenoscopy (EGD) Family History Other Family history non-contributory Social History Housing: House Alcohol intake: former Patient Tobacco Use Status: Never used Tobacco e-Cigarette/Vaping Use: Never Used Second Hand Smoke Exposure: No service: No Current occupational status: disabled Cognitive needs: Yes (wheelchair) Hearing needs: No Vision needs: No Review of Systems Const All systems reviewed & are unremarkable except as noted in HPI and below Physical Exam Vital Signs: BMI result Body Mass Index 25.5 Constitutional: Patient appears to be in no acute distress, well nourished and well developed. Expressive aphasia. He nods or shakes his head to answer questions. Neurological: Right shoulder flexion/abduction 4/5. Rest of right upper extremity 5/5. Right hip flexion, knee extension, dorsiflexion 4/5. Rest of right lower extremity 5/5. Left upper and lower extremities 5/5. No hyperreflexia. Question spasticity right hip flexion and knee extension. Alejandra?s negative bilaterally. Babinski was down going bilaterally. Clonus was negative. Stood with some assistance. Walked a few steps with standby assistance, tightness seen on his right hip flexion. Results Reviewed Results Reviewed: I reviewed records from the following: PCP Assessment & Plan Assessment & Plan (1) Spastic hemiparesis affecting dominant side: Code(s): G81.10 - Spastic hemiplegia affecting unspecified side (2) History of stroke: Code(s): Z86.73 - Personal history of transient ischemic attack (TIA), and cerebral infarction without residual deficits (3) Renal insufficiency: Code(s): N28.9 - Disorder of kidney and ureter, unspecified Plan Weakness noted on proximal RUE and RLE. Difficult to fully evaluate but I suspect that he has spasticity affecting right hip and quadriceps, making walking much harder for him. He denies pain though and spasticity probably affects only walking. Will refer to PT to work on gait and ROM. I will not start on antispasticity medications yet until we understand his functional status better. Son says they can bring him to PT. Referral placed. Assessment and plan discussed with patient, and patient was agreeable. All questions were answered thoroughly. Follow-up in 3 months. Total of 45 minutes spent today including chart review, results review, history taking, physical examination, discussion of assessment and plan, and coordination of care. Cece Thao MD, SHERRY Board Certified, [place] [employer] and [employer] (ABPMR) Board Certified, [place] [employer] (ABEM) Orders: Orders PT Evaluation and Treatment Today G81.10 - Spastic hemiplegia affecting unspecified side, Z86.73 - Personal history of transient ischemic attack (TIA), and cerebral infarction without residual deficits Coding Level of Care Code New Pt Level 4 (70438) Diagnoses Spastic hemiparesis affecting dominant side G81.10 History of stroke Z86.73 Renal insufficiency N28.9
[2023-06-18 11:45] VITALS: BMI 25.5
== END 2023-06-18 12:18 | disposition home or self-care (01) ==
PROVIDERS: PCP Internal Medicine; Visit Provider Physical Medicine & Rehabilitation
DX: G81.10 Spastic hemiplegia affecting unspecified side (principal); Z86.73 Personal history of transient ischemic attack (TIA), and cerebral infarction without residual deficits; N28.9 Disorder of kidney and ureter, unspecified
CPT/HCPCS: 99204

== ENCOUNTER → 2023-06-18 11:10 | Outpatient (BNVA) | payer OTHER, SELFPAY | PROVIDERS: PCP Internal Medicine; Visit Provider Physical Medicine & Rehabilitation | DX: I69.320 Aphasia following cerebral infarction (principal); I69.351 Hemiplegia and hemiparesis following cerebral infarction affecting right dominant side; N28.9 Disorder of kidney and ureter, unspecified | CPT/HCPCS: 99202 ==

== ENCOUNTER 2023-07-07 15:31 | Outpatient (AMB) | payer OTHER, SELFPAY ==
--- NOTE | 2023-07-07 15:32 | MHC.OFFVIS ---
Intake Vital Signs 07/07/23 15:39 Height 5 ft 6 in Weight 153 lb 0.013 oz BMI 24.7 BP 129/85 Blood Pressure Location Rt brachial Position Sitting Pulse 77 Intake Visit Reasons: 6 mnth follow up Intake Note: Patient presents to in office visit today in follow up of dysphagia. CC: Patient's reports patient continues to have trouble swallowing but not as bad as before. Denies other GI concerns today. 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 He will always have some problems due to the neurologic compromise but this was greatly worsened when he had the esophageal erosions. He has not taken the sucralfate for quite some time and he has sustained this improvement on the cimetidine which was started by myself when he 1st presented. I think this is fine so long as his swallowing remains at baseline as the medication was quite constipating for him. We will return to it only if we think he is having more trouble. Return office visit in 6 months (2) Oropharyngeal dysphagia: Code(s): R13.12 - Dysphagia, oropharyngeal phase (3) Constipation: Code(s): K59.00 - Constipation, unspecified (4) Colon cancer screening: Comment: Pt does Cologuard with his PCP per Code(s): Z12.11 - Encounter for screening for malignant neoplasm of colon Medications: Refilled cimetidine 400 mg PO BEDTIME 30 tabs 6RF Discontinued bisacodyl ([place] x (bisacodyl)) Discontinued Reaso n: Doctor's Order 10 mg (2 x 5 mg) P O BEDTIME 30 days PRN 60 tabs 2RF co nstipation sucralfate (Carafa te) Discontinue d Reason: Doctor' s Order 20 mL PO QNOON 1, 000 mL 3RF K22.10 - Ulcer of esophagus without bleeding, K59.00 - Constipation, uns pecified TODAY'S VISIT Nikky # translates per pt request He has been having slightly harder time swallowing, but he had not had a return to his past choking and severe dysphagia. We discuss that we can repeat the EGD and/or the barium swallow with speech therapy. His would like both, but not until the spring - this is fine. He continues on the cimetidine, has not been taking the sucralfate. We discontinued this on purpose because he was having trouble with constipation that likely is also exacerbated by his clonidine. We can always reconsider starting the sucralfate if needed. ROV 6 mos. 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) Pure hypercholesterolemia Benign essential hypertension CVA (cerebral vascular accident) Surgical History History of esophagogastroduodenoscopy (EGD) Family History Other Family history non-contributory Social History Housing: House Alcohol intake: former Patient Tobacco Use Status: Never used Tobacco e-Cigarette/Vaping Use: Never Used Second Hand Smoke Exposure: No service: No Current occupational status: disabled Cognitive needs: Yes (wheelchair) Hearing needs: No Vision needs: No Review of Systems Const Denies fatigue, Denies fever(s), Denies night sweats, Denies poor appetite, Reports weakness and Denies weight loss Eyes Reports requires corrective lenses ENT Reports Normal hearing present, Denies dental pain, Reports dysphagia, Denies hearing loss, Denies mouth pain, Denies odynophagia, Denies throat swelling, Denies tongue swelling and Reports other (Dentition adequate) Card Reports no additional complaints Resp Reports no additional complaints GI Denies abdominal pain, Denies melena, Denies bloating, Denies hematochezia, Reports constipation, Denies GI cramping, Reports dysphagia, Denies excessive flatus, Denies early satiety, Denies heartburn, Denies diarrhea, Denies nausea, Denies odynophagia, Denies vomiting and Denies hematemesis Skin/Breast Denies pruritus, Denies lesions, Denies rash and Denies jaundice Neuro Reports Normal hearing present, Reports lack of coordination and Reports weakness Endo Denies fatigue Aller/Immun Denies throat swelling and Denies tongue swelling Physical Exam Vital Signs: Last Vital Signs Pulse 77 07/07/23 15:39 BP 129/85 07/07/23 15:39 BMI result Body Mass Index 24.7 Const General: cooperative, no acute distress, well developed and well groomed Nutritional Appearance: average body habitus and well nourished Orientation/consciousness: oriented to person, oriented to place and oriented to time Limitations: language barrier HEENT Head: Yes normocephalic and Yes atraumatic Eyes General: appearance normal, both eyes and all related structures Pupils: Equal, round and reactive pupils present Neck Neck: Yes normal visual inspection and Yes no lymphadenopathy Thyroid: Thyroid normal Resp Effort & Inspection: normal respiratory effort and able to speak in complete sentences Auscultation: clear to auscultation bilaterally Cardio Rate: regular rate Rhythm: regular rhythm Heart sounds: Normal, physiologic split S2 sound present Peripheral pulses: radial pulses present and posterior tibial pulses present GI Inspection: No distended and No Abdominal panniculus present Palpation (GI): Soft to palpation, nontender, no guarding, not rigid and No hepatosplenomegaly present Percussion: Yes normal to percussion Auscultation: normal bowel sounds Rectal Exam - Male: Yes deferred Skin General skin exam: no rashes or lesions noted, turgor normal, skin not dry, no jaundice, No spider nevi and no striae Rashes: no rashes Nails: normal Neuro General: oriented to person, oriented to place and oriented to time Cranial nerves: Yes Equal, round and reactive pupils present and Yes Normal hearing present Extrem General: Yes normal to inspection, No clubbing, No cyanosis and No edema Psych Appearance: grossly normal and well kempt Mental Status: mental status grossly normal Speech and movement: Normal speech and movement present Affect: normal affect Attitude: cooperative Thought process: Normal thought process present and not confabulating Thought content: Normal thought content present Insight: Limited insight present (Psych) Judgement: Limited judgement present (Psych) Assessment & Plan Assessment & Plan (1) Oropharyngeal dysphagia: Code(s): R13.12 - Dysphagia, oropharyngeal phase (2) Constipation: Code(s): K59.00 - Constipation, unspecified (3) Esophageal erosions: Code(s): K22.10 - Ulcer of esophagus without bleeding Plan Parkeripina # translates per pt request He has been having slightly harder time swallowing, but he had not had a return to his past choking and severe dysphagia. We discuss that we can repeat the EGD and/or the barium swallow with speech therapy. His would like both, but not until the spring - this is fine. He continues on the cimetidine, has not been taking the sucralfate. We discontinued this on purpose because he was having trouble with constipation that likely is also exacerbated by his clonidine. We can always reconsider starting the sucralfate if needed. ROV 6 mos. Orders: Orders EGD with López - GI Use Only Today K22.10 - Ulcer of esophagus without bleeding, R13.12 - Dysphagia, oropharyngeal phase [place] barium swallow modified Today K22.10 - Ulcer of esophagus without bleeding, R13.12 - Dysphagia, oropharyngeal phase Medications: Refilled cimetidine 400 mg PO BEDTIME 30 tabs 6RF Coding Level of Care Code Est Pt Level 3 (94890) Diagnoses Oropharyngeal dysphagia R13.12 Constipation K59.00 Esophageal erosions K22.10
[2023-07-07 15:39] VITALS: BP 129/85; PULSE 77; BMI 24.7
== END 2023-07-07 16:38 | disposition home or self-care (01) ==
PROVIDERS: PCP Internal Medicine; Visit Provider Nurse Practitioner
DX: R13.12 Dysphagia, oropharyngeal phase (principal); K59.00 Constipation, unspecified; K22.10 Ulcer of esophagus without bleeding
CPT/HCPCS: 99213

== ENCOUNTER → 2023-07-07 15:31 | Outpatient (BNVA) | payer OTHER, SELFPAY | PROVIDERS: PCP Internal Medicine; Visit Provider Nurse Practitioner | DX: R13.12 Dysphagia, oropharyngeal phase (principal); K22.10 Ulcer of esophagus without bleeding; K59.00 Constipation, unspecified | CPT/HCPCS: 99212 ==

== ENCOUNTER 2023-10-05 16:57 | Outpatient (AMB) | payer OTHER, SELFPAY ==
[2023-10-05 17:11] VITALS: BP 108/68; PULSE 68; O2SAT 98; BMI 24.5
--- NOTE | 2023-10-05 17:11 | MHC.PC.OV ---
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 Accompanied by: Spouse Allergies No Known Allergies Allergy (Verified 10/05/23 17:43) Medication List - Last Reconciled 10/05/23 by Raman Torrez MD amlodipine 10 mg PO DAILY atorvastatin 10 mg PO BEDTIME cholecalciferol (vitamin D3) 50 mcg PO DAILY 90 days cimetidine 400 mg PO BEDTIME clonidine HCl 0.1 mg PO BID 90 days [LIGHTWEIGHT FOLDING WHEELCHAIR (medium) As directed] losartan 100 mg PO DAILY 90 days quetiapine 25 mg PO BEDTIME [ROLLATOR with SEAT As directed] valproic acid 500 mg (2 x 250 mg) PO QAM vitamin B complex 1 cap PO DAILY Tobacco use date assessed: 10/05/23 Dental Screening Dental Screen Date: 10/05/23 Did you have a dental visit in the last 12 months?: No Did you have a dental problem in the last 6 months where you did not have access to dental care?: No Was dental information given to patient?: Yes HPI 4 month f/u HPI Details Patient comes in today for his follow up visit States that he feels okay He denies any headaches or dizziness Denies any chest pains, no SOB No nausea/vomiting, no abdominal pain No change in bowel habits noted He needs several of his Rx refilled today He was not able to get his follow up labs done prior to his visit today - his states that she will try to help him get these done this coming weekend He was seen by GI recently for follow up of his dysphagia - he is scheduled for his screening colonoscopy as well as a barium swallow next month for further evaluation Patient has also been seen by physiatry and was recommended to start physical therapy, which he has not yet started due to some issues with his insurance a few months ago, which his states are now resolved and she will be calling PT to schedule an appointment for him as soon as possible [facility] Medical History (Updated 10/05/23 @ 18:23 by Raman Torrez MD) Colon cancer screening Expressive aphasia History of stroke Spastic hemiparesis affecting dominant side Esophageal ulcer Vitamin D deficiency Iron deficiency anemia Right hemiplegia Cerebrovascular accident (CVA) 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) Pure hypercholesterolemia Benign essential hypertension CVA (cerebral vascular accident) Surgical History History of esophagogastroduodenoscopy (EGD) Family History Other Family history non-contributory Social History Housing: House Alcohol intake: former Patient Tobacco Use Status: Never used Tobacco e-Cigarette/Vaping Use: Never Used Second Hand Smoke Exposure: No service: No Current occupational status: disabled Cognitive needs: Yes (wheelchair) Hearing needs: No Vision needs: No Questionnaire PHQ-9 Over the last 2 weeks, how often have you been bothered by any of the following problems? 1. Little interest or pleasure in doing things: not at all 2. Feeling down, depressed, or hopeless: not at all 3. Trouble falling or staying asleep, or sleeping too much: not at all 4. Feeling tired or having little energy: not at all 5. Poor appetite or overeating: not at all 6. Feeling bad about yourself - or that you are a failure or have let yourself or your family down: not at all 7. Trouble concentrating on things, such as reading the newspaper or watching television: not at all 8. Moving or speaking so slowly that other people could have noticed. Or the opposite - being so fidgety or restless that you have been moving around a lot more than usual: not at all 9. Thoughts that you would be better off or of hurting yourself in some way: not at all Total score: 0 Depression Screening Interpretation: Negative Depression Screening Done: Yes 85094 - PHQ-9 Billing: Yes Source: Developed by Drs. Feng Alcaraz, Rubia Galvan, Sulaiman Daniel and colleagues, with an educational rachele from [employer]. Thrive Questionnaire Date Thrive assessed: 10/05/23 I am a: Patient What is your living situation today?: I have a steady place to live Within the past 12 months, did the food you bought not last and you didn't have the money to get more?: Never true Within the past 12 months, did you worry whether your food would run out before you got money to buy more?: Never true Do you have trouble paying for medicines?: No Do you have trouble getting transportation to medical appointments?: No Do you have trouble paying your heating and electricity bill?: No Do you have trouble taking care of your child, family member or friend?: No Do you have trouble with day-to-day activities such as bathing, preparing meals, shopping, managing finances, etc.?: No Are you currently unemployed and looking for a job?: No Are you interested in more education?: No Please select the resources that you would like help with: None Currently or been in a relationship where the following occur: no concerns reported THRIVE Score: 0 AUDIT C Alcohol Use Questionnaire (AUDIT-C) 1. How often do you have a drink containing alcohol?: Never 3. How often do you have six or more drinks on one occasion?: Never Total Score: 0 Score Reviewed/Action Taken: Yes JAREK-7 AMB Questionnaire JAREK-7 Date JAREK - 7 assessed: 10/05/23 Feeling nervous, anxious, or on edge: 0 = Not at all Not being able to stop or control worryin = Not at all Worrying too much about different things: 0 = Not at all Trouble relaxin = Not at all Being so restless that it is hard to sit still: 0 = Not at all Becoming easily annoyed or irritable: 0 = Not at all Feeling afraid as if something awful might happen: 0 = Not at all Total JAREK-7 score (0-4 normal; 5-9 mild; 10-14 moderate; 15-21 severe): 0 Source: Developed by Drs. Feng Alcaraz, Rubia Galvan, Sulaiman Daniel and colleagues, with an educational rachele from [employer]. JAREK-7 Assessment Billing JAREK-7 Assessment Tool: JAREK-7 Assessment 06897 Review of Systems Const Denies chills, Denies fatigue, Denies fever(s) and Denies headache(s) ENT Reports dysphagia ((+) some improvement with speech & swallow therapy and Rx), Denies dizziness, Denies otalgia, Denies headache(s), Denies neck pain, Denies odynophagia and Denies sore throat Card Denies chest pain, Denies palpitations and Denies dyspnea Resp Denies cough and Denies dyspnea GI Denies abdominal pain, Denies constipation, Reports dysphagia ((+) some improvement with speech & swallow therapy and Rx), Denies dyspepsia, Denies heartburn, Denies diarrhea, Denies nausea, Denies odynophagia and Denies vomiting Denies dysuria, Denies nocturia and Denies urinary frequency Musc Denies back pain and Denies neck pain Skin/Breast Denies rash Neuro Details: (+) right-sided weakness (S/P CVA) Denies dizziness and Denies headache(s) Endo Denies fatigue and Denies palpitations Physical exam (Primary Care) Vital Signs: Last Vital Signs Pulse 68 10/05/23 17:11 BP 108/68 10/05/23 17:11 Pulse Ox 98 10/05/23 17:11 Oxygen Delivery Method Room Air 10/05/23 17:11 BMI result Body Mass Index 24.5 Tobacco/Smoking Status: Tobacco use Status Tobacco use date assessed 10/05/23 10/05/23 17:19 Patient Tobacco Use Status Never used Tobacco 10/05/23 17:19 e-Cigarette/Vaping Use Never Used 10/05/23 17:19 PHQ-9: PHQ-9 Score PHQ-9: Total score 0 10/05/23 22:24 Depression Screening Interpretation: Negative Thrive Assessment: Date of Thrive Assessment Date Thrive assessed 10/05/23 10/05/23 17:19 Currently or been in a relationship where the following occur: no concerns reported Const Other: Information is obtained partially through patient's as he is limited in his ability to communicate due to his aphasia General: no acute distress and alert Limitations: wheelchair HENMT Ears: TM's normal bilaterally and EAC's normal Throat: Yes posterior oropharynx normal and Yes tonsils normal (no TP congestion noted) Neck Neck: Yes no lymphadenopathy and Yes supple Resp Auscultation: clear to auscultation bilaterally, no rales and no wheezes Cardio Rate: regular rate Rhythm: regular rhythm Heart sounds: no murmurs GI Palpation (GI): Soft to palpation and nontender Auscultation: normal bowel sounds Neuro Other: (+) right hemiparesis and (+) aphasia Extrem General: No clubbing, No cyanosis and Yes edema (1+ bipedal pitting edema noted) Results AMB Hemoglobin A1c AMB Hemoglobin A1c 5.1 % Last Edit by GERMAIN Bragg on 10/05/23 17:21 Results Reviewed Results Reviewed: Laboratory Last Values Hgb A1c (Clinic) 5.1 % (4.0-6.0) 10/05/23 17:20 Assessment and Plan Assessment & Plan (1) Cerebrovascular accident (CVA): Comment: x3 (2002, 2005 and 2008) Code(s): I63.9 - Cerebral infarction, unspecified Qualifiers: CVA mechanism: unspecified Qualified Code(s): I63.9 - Cerebral infarction, unspecified Plan: S/P CVA a few years ago with residual right hemiparesis and aphasia states that patient's overall mobility and gait quality have improved a lot with physical therapy in the past (2) Right hemiplegia: Code(s): G81.91 - Hemiplegia, unspecified affecting right dominant side Plan: Patient's overall mobility and gait quality have reportedly improved a lot with physical and occupational therapy and will continue with PT/OT as scheduled or as needed As his stated at his last visit that his right-sided weakness seemed to have gotten worse, he was referred to physiatry for further management He was seen earlier this year and was recommended for physical therapy again but this was delayed as patient reportedly had some issues with his health insurance coverage, which his states are now resolved, and she will be calling to schedule him with physical therapy soon (3) Esophageal ulcer: Comment: EGD done 03/2022 Code(s): K22.10 - Ulcer of esophagus without bleeding Qualifiers: Esophageal ulcer bleeding: without bleeding Qualified Code(s): K22.10 - Ulcer of esophagus without bleeding Plan: Esophageal biopsy done back in March 2022 revealed (+) cardiac-type mucosa with mild chronic inactive inflammation and no intestinal metaplasia seen. Lesions are polypoid, eroded and ulcerated squamous mucosa and fragment of ulcer bed but no malignancy is identified Patient reported (+) improvement of his symptoms of dysphagia and choking sensation over the next few months and he has been eating very well since, per his Continue Cimetidine 400 mg Q HS He was also started on Carafate but he disliked the taste of the medication and found it constipating and self-discontinued the medication after a while He was supposedly being scheduled for repeat EGD sometime last spring (2022) but this never occurred He was then seen by GI a few months later and was reportedly advised that since his symptoms have improved a lot, he can hold off on repeat EGD at the time and to just follow up again in 6 months unless symptoms flare up or recur He is now scheduled for repeat EGD as well as barium swallow studies next month Follow up with GI as scheduled (4) Aspiration of food: Code(s): T17.928A - Food in respiratory tract, part unspecified causing other injury, initial encounter Qualifiers: Encounter type: initial encounter Qualified Code(s): T17.928A - Food in respiratory tract, part unspecified causing other injury, initial encounter Plan: Modified barium swallow done last year revealed (+) martita laryngeal aspiration with thin barium and barium-coated puree He has been referred for swallowing evaluation and training/therapy, which he completed States that his issues with swallowing has improved a lot with swallow therapy He is scheduled again for repeat barium swallow studies next month (5) Benign essential hypertension: Code(s): I10 - Essential (primary) hypertension Plan: Reinforced low sodium diet - goal is systolic BP of at least 130 mm or less Continue Amlodipine 10 mg QD, Losartan 100 mg QD and Clonidine 0.1 mg BID (6) Pure hypercholesterolemia: Code(s): E78.00 - Pure hypercholesterolemia, unspecified Plan: He was not able to get his follow up labs done prior to his visit today - his states that they simply forgot to get them done and she will try to help him get these done this coming weekend Reinforced low cholesterol diet Continue Atorvastatin 10 mg QD Will have him recheck his labs and fasting lipids again in 4 months for follow up (7) Impaired fasting glucose: Code(s): R73.01 - Impaired fasting glucose Plan: Patient's FBS increased significantly on his previous labs (was at 132 mg/dl on his labs done a few months ago) as his stated that he was eating a lot of rice back then, which she has since cut him back on In-office HgbA1c done today is normal at 5.1% Reinforced low calorie/low carb diet Will recheck his FBS and HgbA1c in a few months for follow up (8) Renal insufficiency: Code(s): N28.9 - Disorder of kidney and ureter, unspecified Plan: Patient's serum creatinine and GFR have both declined on his previous labs to early stage 3 CKD numbers Will continue to monitor his labs and renal function regularly and recheck them in 4 months for follow up (9) Iron deficiency anemia: Code(s): D50.9 - Iron deficiency anemia, unspecified Qualifiers: Iron deficiency anemia type: unspecified iron deficiency Qualified Code(s): D50.9 - Iron deficiency anemia, unspecified Plan: Corrected on his labs back in May 2021; iron studies done back in 2020 were also normal His H/H have remained normal since Will continue to monitor his CBC periodically (10) Vitamin D deficiency: Code(s): E55.9 - Vitamin D deficiency, unspecified Plan: Continue Vitamin D3 2000 units QD (11) 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): Code(s): I63.9 - Cerebral infarction, unspecified; F06.30 - Mood disorder due to known physiological condition, unspecified Plan: Continue Valproic Acid 500 mg Q AM and Quetiapine?25 mg Q HS Plan Follow up in 4 months Orders: Orders Complete Blood Count Auto Diff 4 Months D64.9 - Anemia, unspecified TSH reflex Free T4 4 Months E78.00 - Pure hypercholesterolemia, unspecified UA CC w/rflx Micro + Cult 4 Months R30.0 - Dysuria Vitamin D 25-OH Total 4 Months E55.9 - Vitamin D deficiency, unspecified Hemoglobin A1c 4 Months R73.01 - Impaired fasting glucose AMB Hemoglobin A1c 10/05/23 Z13.9 - Encounter for screening, unspecified Comprehensive [place]. Panel Fast 4 Months E78.00 - Pure hypercholesterolemia, unspecified Lipid Panel 4 Months E78.00 - Pure hypercholesterolemia, unspecified Medications: Refilled cholecalciferol (vitamin D3) 50 mcg PO DAILY 90 days 90 caps 3RF E55.9 - Vitamin D deficiency, unspecified quetiapine 25 mg PO BEDTIME 90 tabs 1RF clonidine HCl 0.1 mg PO BID 90 days 180 tabs 1RF amlodipine 10 mg PO DAILY 90 tabs 1RF atorvastatin 10 mg PO BEDTIME 90 tabs 1RF losartan 100 mg PO DAILY 90 days 90 tabs 3RF Coding Level of Care Code Est Pt Level 4 (59479) Diagnoses Cerebrovascular accident (CVA), unspecified mechanism I63.9 CVA mechanism: unspecified Right hemiplegia G81.91 Ulcer of esophagus without bleeding K22.10 Esophageal ulcer bleeding: without bleeding Aspiration of food, initial encounter T17.928A Encounter type: initial encounter Benign essential hypertension I10 Pure hypercholesterolemia E78.00 Impaired fasting glucose R73.01 Renal insufficiency N28.9 Iron deficiency anemia, unspecified iron deficiency anemia type D50.9 Iron deficiency anemia type: unspecified iron deficiency Vitamin D deficiency E55.9 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
== END 2023-10-05 18:08 | disposition home or self-care (01) ==
PROVIDERS: PCP Internal Medicine; Visit Provider Internal Medicine
DX: R73.01 Impaired fasting glucose (principal)
CPT/HCPCS: 83036; 99214

== ENCOUNTER 2023-10-10 07:58 | Outpatient (REF) | payer OTHER, SELFPAY ==
[2023-10-10 08:31] LABS: MANUAL DIFF FLAG NO
[2023-10-10 09:14] LABS: Basophils Absolute Auto 0.1 X10*3/uL (0.0-0.2); Basophils Percent Auto 1.3 % (0-2); Eosinophils Absolute Auto 0.9 X10*3/uL (0.0-0.4); Eosinophils Percent Auto 14.3 % (0-4); Hematocrit 47.1 % (42.0-52.0); Hemoglobin 16.5 g/dl (14.0-18.0); Imm Gran Abs Auto 0.02 X10*3/uL (0.00-0.03); Imm Gran Pct Auto 0.3 % (0.0-0.4); Mean Corpuscular Hemoglobin 29.8 pg (27.0-33.0); Mean Platelet Volume 9.3 fL (9.4-12.4); Monocytes Absolute Auto 0.5 X10*3/uL (0.1-1.2); Monocytes Percent Auto 8.9 % (2-11); Neutrophils Absolute Auto 3.5 x10*3/uL (2.0-8.3); Neutrophils Percent Auto 59.2 % (45-73); Platelet Count 212 X10*3/uL (160-400); Red Blood Count 5.54 X10*6/uL (4.60-5.80); Red Cell Distribution Width 12.4 % (11.0-16.0)
[2023-10-10 09:21] LABS: Estimated Average Glucose 108 mg/dL; Hemoglobin A1C 141.5542 umol/L; Hemoglobin A1c % 5.4 % (<6.0)
[2023-10-10 09:27] LABS: Appearance Urine Clear; Color Urine Dark Yellow; Glucose Urine UA Negative (Negative); Leukocyte Esterase Urine Negative (Negative); Nitrite Urine Negative (Negative); UMIC TRIGGER UACC YES; Urine Blood Negative (Negative); Urine Ketones Trace mg/dL (Negative); Urine Protein 30 (1+) mg/dL (Neg-Trace)
[2023-10-10 09:32] LABS: Bacteria Urine None Seen (None Seen); Hyaline Casts Urine 0-2 /LPF (0-2); RBC Urine 0-2 /HPF (0-2); Squamous Epithelial Cell Urine 0-2 /HPF (0-2); WBC Urine 0-5 /HPF (0-5)
[2023-10-10 09:51] LABS: Alanine Aminotransferase 17 U/L (0-40); Albumin Level 4.1 g/dL (3.5-5.0); Alkaline Phosphatase 81 U/L (39-117); Anion Gap 11 (12-20); Aspartate Amino Transferase 12 U/L (5-37); Bilirubin Total 0.5 mg/dL (0.0-1.0); Blood Urea Nitrogen 8 mg/dL (9-16); Calcium 9.4 mg/dL (8.4-10.2); Carbon Dioxide 28 mmol/L (22-29); Chloride 106 mmol/L (96-108); Cholesterol 163 mg/dL (<200); Estimated Glomerular Filt Rate 55; Glucose Fasting 91 mg/dL (60-99); HDL Cholesterol 38 mg/dL (>40); LDL Cholesterol Calculated 88 mg/dL (<100); Sodium 141 mmol/L (135-145); Total Protein 7.3 g/dL (6.5-8.0); Triglycerides 185 mg/dL (<150)
[2023-10-10 10:09] LABS: TSH reflex Free T4 1.67 uIU/mL (0.32-4.0); Vitamin D 25-OH Total 46.8 ng/mL (>30)
[2023-10-10 12:07] LABS: Folate 12.2 ng/mL (> or = 4.0); Vitamin B12 778 pg/mL (200-900)
== END 2023-10-10 07:59 | disposition home or self-care (01) ==
LOC: HO.LAB 07:58
PROVIDERS: PCP Internal Medicine; Visit Provider Internal Medicine
DX: I10 Essential (primary) hypertension (principal); E53.8 Deficiency of other specified B group vitamins; E55.9 Vitamin D deficiency, unspecified; R30.0 Dysuria; E78.00 Pure hypercholesterolemia, unspecified; R73.01 Impaired fasting glucose; Z86.73 Personal history of transient ischemic attack (TIA), and cerebral infarction without residual deficits
CPT/HCPCS: 36415; 80053; 80061; 81001; 82306; 82607; 82746; 83036; 84443; 85025

== ENCOUNTER 2023-10-19 12:26 | Day surgery (SDC) | payer OTHER, SELFPAY ==
--- NOTE | 2023-10-16 12:23 | P.CONAN_ITS ---
Documented by User: Sussy Cano NP 10/16/23 12:25 HPI - Anesthesia Eval Consult details Narrative: 58yo M for Upper Endoscopy S/P CVA a few years ago with residual right hemiparesis and aphasia, ? aspiration PMFSH Active Problems Active Problems: All Active Problems History of stroke (Acute) Spastic hemiparesis affecting dominant side (Acute) Renal insufficiency (Acute) Impaired fasting glucose (Acute) Blurred vision, bilateral (Acute) Pain of both eyes (Acute) Colon cancer screening (Acute) Constipation (Acute) Esophageal erosions (Acute) Aspiration of food (Acute) Oropharyngeal dysphagia (Acute) Vitamin D deficiency (Acute) Iron deficiency anemia (Acute) Right hemiplegia (Acute) Cerebrovascular accident (CVA) (Acute) 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) (Acute) Pure hypercholesterolemia (Acute) Benign essential hypertension (Acute) CVA (cerebral vascular accident) (Acute) Past Medical History Medical History (Updated 10/05/23 @ 18:23 by Raman Torrez MD) Colon cancer screening Expressive aphasia History of stroke Spastic hemiparesis affecting dominant side Esophageal ulcer Vitamin D deficiency Iron deficiency anemia Right hemiplegia Cerebrovascular accident (CVA) 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) Pure hypercholesterolemia Benign essential hypertension CVA (cerebral vascular accident) Family History Family History Other Family history non-contributory Family history of problems with anesthesia: No Surgical History Surgical History History of esophagogastroduodenoscopy (EGD) History of Problems with Anesthesia: No Social History Social History Housing: House Alcohol intake: former Patient Tobacco Use Status: Never used Tobacco e-Cigarette/Vaping Use: Never Used Second Hand Smoke Exposure: No Advance Directives: No Advance Directives Information Provided: Yes service: No Current occupational status: disabled Cognitive needs: Yes (wheelchair) Hearing needs: No Vision needs: No Meds Allergies Allergy/AdvReac Type Severity Reaction Status Date / Time No Known Allergies Allergy Verified 10/05/23 17:43 Home Medications ?Medication ?Instructions ?Recorded ?Confirmed ?Last Taken ?Type vitamin B complex 1 cap PO DAILY 04/29/22 10/05/23 Unknown History Exam Pertinent Lab Results Pertinent Lab Results: Laboratory Tests 10/10/23 08:28 WBC 6.0 Hgb 16.5 Hct 47.1 Plt Count 212 Sodium 141 Potassium 4.0 Chloride 106 Carbon Dioxide 28 BUN 8 L Creatinine 1.34 Assessment and Plan Assessment Anesthesia Assessment: Chart Reviewed Final Anesthetic Review Family History of Problems with Anesthesia: No History of Problems with Anesthesia: No Documented by User: Neema Driver MD 10/19/23 12:52 [facility] Past Medical History Medical History (Updated 10/05/23 @ 18:23 by Raman Torrez MD) Colon cancer screening Expressive aphasia History of stroke Spastic hemiparesis affecting dominant side Esophageal ulcer Vitamin D deficiency Iron deficiency anemia Right hemiplegia Cerebrovascular accident (CVA) 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) Pure hypercholesterolemia Benign essential hypertension CVA (cerebral vascular accident) Family History Family History Other Family history non-contributory Surgical History Surgical History History of esophagogastroduodenoscopy (EGD) Social History Social History Housing: House Alcohol intake: former Patient Tobacco Use Status: Never used Tobacco e-Cigarette/Vaping Use: Never Used Second Hand Smoke Exposure: No Advance Directives: No Advance Directives Information Provided: Yes service: No Current occupational status: disabled Cognitive needs: Yes (wheelchair) Hearing needs: No Vision needs: No Meds Allergies Allergy/AdvReac Type Severity Reaction Status Date / Time No Known Allergies Allergy Verified 10/05/23 17:43 Home Medications ?Medication ?Instructions ?Recorded ?Confirmed ?Last Taken ?Type vitamin B complex 1 cap PO DAILY 04/29/22 10/05/23 Unknown History Exam Airway Mallampati Class: II TM Dist: >3cm Neck ROM: Full Denture: Upper Heart: rrr Lungs: cta Assessment and Plan Assessment Anesthesia Assessment: Anesthesia Plan Discussed Final Anesthetic Review NPO: Yes ASA Class: III Final Preanesthetic Review: No Changes in Pt Med Stat, Meds/Allgs Chart Reviewed and Consent Obtained/Reviewed Patient Risk: Intermediate Procedure Risk: Intermediate Anesthetic Plan Anesthetic Plan: MAC: Disposition: Standard PACU
[2023-10-19 12:47] VITALS: BMI 24.7
[2023-10-19] MEDS: Lactated Ringers 1,000 ML 100 ML IVCONT (12:59)
[2023-10-19 13:08] VITALS: BP 128/84; PULSE 63; RESP 18; TEMP 36.9; O2SAT 98
--- NOTE | 2023-10-19 14:19 | MHC.SHP ---
Pre-Procedural Eval Section A - 24 Hr Update-Section A only Date of Service: 10/19/23 The patient is an INPATIENT: No The patient has been examined within 24 hours of the surgical procedure. The History & Physical has been completed within 30 days and I have reviewed it.: No Section B - Complete if H&P > 30 days Chief Complaint: Ulcer of esophagus without bleeding Relevant Family History (Specify if Yes): No Relevant Social History: None Present Medications: see Short Stay Collaborative assessment Medical History: Significant History (Expressive aphasia History of stroke Spastic hemiparesis affecting dominant side Esophageal ulcer Vitamin D deficiency Iron deficiency anemia Right hemiplegia Cerebrovascular accident (CVA)) History of Previous Operations: Relevant previous surgery/procedure and date(s) (History of EGD) Allergies: Allergies Allergy/AdvReac Type Severity Reaction Status Date / Time No Known Allergies Allergy Verified 10/19/23 13:09 Review of Systems Sugical H&P ROS: Negative: Constitution, Cardiovascular, Respiratory and Gastrointestinal Exam Surgical H&P Exam: Normal: Heart, Normal: Lungs, Normal: Extremities and Normal: Abdomen Plan Diagnosis/Plan: Unchanged I have reviewed the history and physical and performed a pertinent physical examination on my patient. No changes have occurred unless specified. Time Spent With Patient Time: Total time managing care of this patient today ____ minutes.
--- NOTE | 2023-10-19 14:27 | W.PM.OPN ---
Operative Note Operative Note Date of Service: 10/19/23 Narrative: FLEXIBLE TRANSORAL UPPER GASTROINTESTINAL ENDOSCOPY WITH BIOPSIES Pre-op diagnosis: GERD, Dysphagia Post-op diagnosis: GERD, severe erosive esophagitis, large hiatal hernia, Gastritis, Multiple duodenal ulcers Endoscopist:? Karen Ricardo MD Anesthesia:?MAC UPPER ENDOSCOPY Consent: Indications for the procedure and potential complications of bleeding, perforation, reaction to medications and missed diagnosis were discussed with the patient and informed consent was obtained. Instrument: Olympus GIF H 190 mid size upper endoscope Monitoring: Vital signs and clinical assessment, continuous EKG monitoring, Pulse oximetry, Carbon Dioxide monitoring and blood pressure monitoring were done throughout the procedure. Procedure: The patient was placed in the left lateral decubitis position and pre-procedure medications were administered and a bite block was placed. The endoscope was inserted into the mouth and advanced under direct vision to the third part of duodenum. A careful inspection was made as the upper endoscope was withdrawn including a retroflexed examination of the proximal stomach; Findings and interventions are described below. Findings: Larynx: Normal Esophagus: GE junction at 35 cms, hiatal hernia 35 to 40 cms. Severe LA grade D esophagitis from 28 to 35 cms. Edematous folds in the distal esophagus from 30 to 35 cms - biopsied. A mid size upper endoscope passed through the mass with minimal resistance. Stomach: Mild gastric erythema - biopsies are obtained for Helicobacter pylori. Grade 4 flap valve on retroflexed examination of the cardia. Duodenum: Multiple 1 to 2 cms superficial ulcers in the bulb - biopsied. Normal descending duodenum Esophagus: GE junction at 35 cms. Mildly tortuous esophagus Stomach: Nodular appearing mucosa in the gastric body and fundus - biopsied. Moderate diffuse gastric erythema - biopsies were obtained from the antrum. Grade 2 flap valve on retroflexed examination of the cardia. Duodenum: Normal bulb and descending duodenum Intervention: Biopsies as noted above Impression and Post Procedure Diagnosis: Endoscopy Findings: ESOPHAGUS: GE junction at 35 cms. Mildly tortuous esophagus STOMACH: Nodular appearing mucosa in the gastric body and fundus - biopsied. Moderate diffuse gastric erythema - biopsies were obtained from the antrum. Plan: Pt has a FU appointment on 01/07/24 with Meghan Washington NP. Above findings were reviewed with the patient and relevant handouts were given and the discharge area.
[2023-10-19 14:54] VITALS: BP 122/85; PULSE 80; RESP 16; TEMP 36.6; O2SAT 97
[2023-10-19 15:09] VITALS: BP 124/86; PULSE 67; RESP 16; O2SAT 95
[2023-10-19 15:23] VITALS: BP 157/95; PULSE 62; RESP 17; TEMP 36.9; O2SAT 95
== END 2023-10-19 15:48 | disposition home or self-care (01) ==
PROVIDERS: PCP Internal Medicine; Visit Provider Internal Medicine Gastroenterology
PROC: 0DJ08ZZ Inspection of Upper Intestinal Tract, Via Natural or Artificial Opening Endoscopic (ICD-10-PCS; CPT 43235; principal; 2023-10-19 12:20)
DX: K21.00 Gastro-esophageal reflux disease with esophagitis, without bleeding (principal); K29.70 Gastritis, unspecified, without bleeding; K26.9 Duodenal ulcer, unspecified as acute or chronic, without hemorrhage or perforation; K44.9 Diaphragmatic hernia without obstruction or gangrene; I10 Essential (primary) hypertension; I69.351 Hemiplegia and hemiparesis following cerebral infarction affecting right dominant side; I69.320 Aphasia following cerebral infarction
CPT/HCPCS: 43239; 88305; 88313; 88342; J2704

== ENCOUNTER 2023-10-26 13:58 | Outpatient (REF) | payer OTHER, SELFPAY ==
--- NOTE | ~2023-10-26 | FL_ITS ---
EXAMINATION: Modified Barium Swallow CLINICAL INFORMATION: Dysphagia COMPARISON: None TECHNIQUE: Modified barium swallow was performed under lateral fluoroscopy with patient in standing position. Barium mixed with solids and liquids of different consistencies was administered by the speech pathologist. Examination was recorded in the fluoroscopy suite. FINDINGS: Trace laryngeal penetration was seen with puree consistency barium. Aspiration was observed with thin barium. FLUOROSCOPY TIME: 4 minutes 36 seconds Number of Spot Images: 1 DOSE AREA PRODUCT: 245.3 uGy-m2 (microgray-meter squared) FL/FL barium swallow modified IMPRESSION: Trace laryngeal penetration was seen with puree consistency barium. Aspiration was observed with thin barium. Refer to the speech therapy report for further clarification This procedure was performed by Silvio Hoyt PA-C, and supervised by Dr. Aldrich
--- NOTE | 2023-11-05 13:28 | MHC.SL.IMP ---
Date of Plan of Treatment: 10/26/23 Onset of Symptoms/Illness: 02/12/17 Date Treatment Started: 02/12/22 Admitting Diagnosis: Hx CVA Primary Speech & Language Diagnosis: R13.12 Oropharyngeal Phase Dysphagia Reason for Today's Visit: 88299 Modified Barium Swallow Study Pre-evaluation Dietary Consistencies: Pureed (NDD1) Pre-evaluation Liquid Consistency: Honey Thick Pre-evaluation Medication Administration: Crushed with Puree Medical History: Modified Barium Swallow Study Fluoroscopic Evaluation of Swallowing Function CPT Code 89041 Evaluation Year: 2023 Reason for Study: Hx dysphagia Referring Physician: Meghan Washington ANP-C Evaluating Clinician: Tamela Shell MA, CCC-WIND FIELD MANAGER Study Number: 1 Patient Name: Bebe Zimmerman Status: Outpatient, Wheelchair Age: 58 Gender: Male Medical History Medical History (Updated 10/05/23 @ 18:23 by Raman Torrez MD) Colon cancer screening Expressive aphasia History of stroke Spastic hemiparesis affecting dominant side Esophageal ulcer Vitamin D deficiency Iron deficiency anemia Right hemiplegia Cerebrovascular accident (CVA) 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) Pure hypercholesterolemia Benign essential hypertension CVA (cerebral vascular accident) Surgical History History of esophagogastroduodenoscopy (EGD) Food and Liquid Trials: Oral Impairment: Lip Closure: Did not test Oral Impairment: Tongue Control During Bolus Hold: Did not test Oral Impairment: Bolus Preparation/Mastication: Did not test Oral Impairment: Bolus Transport/Lingual Motion: 3=Repetitive/disorganized tongue motion Oral Impairment: Oral Residue: 2=Residue collection on oral structures Oral Impairment:Initiation of Pharyngeal Swallow: 3=Bolus head in pyriforms Pharyngeal Impairment: Soft Palate Elevation: 0=No bolus between soft palate (SP)/pharyngeal wall (PW) Pharyngeal Impairment: Laryngeal Elevation: 1=Partial thyroid cartilage/arytenoids to epiglottic petiole movement Pharyngeal Impairment: Anterior Hyoid Excursion: 2=No anterior movement Pharyngeal Impairment: Epiglottic Movement: 2=No inversion Pharyngeal Impairment: Laryngeal Vestibular Closure:: 1=Incomplete: narrow column air/contrast in laryngeal vestibule Pharyngeal Impairment: Pharyngeal Stripping Wave: 1=Present: diminished Pharyngeal Impairment: Pharyngeal Contraction: Did not test Pharyngeal Impairment: Pharyngoesophageal Segment Openin=Partial distention/partial duration: partial obstruction of flow Pharyngeal Impairment: Tongue Base (TB) Retraction: 2=Narrow column of contrast/air between TB and posterior PW Pharyngeal Impairment: Pharyngeal Residue: 2=Collection of residue within or on pharyngeal structures Pharyngeal Impairment: Esophageal Clearance Upright Position: Did not test Impressions and Recommendations OBJECTIVE: Time-out: performed at 15:00 Evaluation Start: 14:30; Stop: 14:35 Patient Positioning: Seated 70-90 degrees Viewing Planes: LATERAL ONLY Contrast: MBSImP? Standardized Protocol using commercially prepared, standardized Barium viscosities, including: Varibar? THIN LIQUID (40% w/v, <15 cps) , Varibar? NECTAR (40% w/v, <150-450 cps) [facility] [id number] [facility] Results: Lip closure for intraoral bolus containment could not be assessed due to logistical reasons not related to physiologic impairment. Tongue control during bolus hold could not be assessed due to logistical reasons not related to physiologic impairment. Bolus preparation and mastication received the highest impairment score; solid not given due to patient safety concerns related to oral impairment. Bolus transport/lingual motion was with repetitive/disorganized motion of the tongue. Oral residue was a collection on oral structures. Initiation of the pharyngeal swallow occurred when the bolus head was in the pyriform sinuses. Soft palate elevation resulted in no bolus between the soft palate and the pharyngeal wall. Laryngeal elevation was decreased, with partial superior movement of the thyroid cartilage/partial approximation of the arytenoids to the epiglottic petiole. Anterior hyoid excursion demonstrated no movement. Epiglottic movement resulted in no inversion. Laryngeal vestibular closure was incomplete, with a narrow column of air/contrast noted within the laryngeal vestibule at the height of the swallow. Pharyngeal stripping wave was present, but diminished. Pharyngeal contraction could not be determined due to logistical reasons not related to physiologic impairment. Pharyngoesophageal segment opening demonstrated partial distension/partial duration, with partial obstruction of bolus flow. Tongue base retraction allowed a narrow column of contrast or air between the retracted tongue base and the posterior pharyngeal wall. Pharyngeal residue was a collection of residue within or on pharyngeal structures. Esophageal clearance in the upright position could not be assessed due to logistical reasons not related to physiologic impairment. Oral Impairment Score: 11 (absence of score, component 1component 2) Pharyngeal Impairment Score: 12 (absence of score, component 13) Esophageal Impairment Score: --- (absence of score, component 17) Laryngeal Penetration and Aspiration: Both Penetration and Aspiration were observed in today's study. Puree (applesauce) entered the airway, remained above the vocal folds, and was ejected from the airway. Thin Contrast entered the airway, passed below the vocal folds, and no effort was made to eject. ASSESSMENT: This exam was conducted by the speech pathologist and the radiologist. Patient was seated upright at 90 degrees and was fed with 1:1 assistance. He trialed thin (via teaspoon), nectar thick (via teaspoon, straw), and puree (pudding vs. applesauce) textures. Disorganized posterior lingual motion, characterized by repetitive and prolonged tongue pumping, resulting in posterior spillage into the valleculae and pyriform sinuses prior to initiation of the pharyngeal swallow. Pharyngeal swallow was delayed and initiated at the level of the pyriform sinuses. No evidence of nasopharyngeal reflux. Partial laryngeal elevation with no epiglottic inversion and episodes of tracheal aspiration. There was minimal collection of residue in the valleculae, in the pyriforms, and on the posterior pharyngeal wall which cleared with subsequent swallows. There was aspiration with thin liquid. Patient did not elicit a spontaneous cough and did not follow commands to cough and clear his throat. No aspiration or penetration noted on nectar thick liquid and puree (pudding). With trial of puree (applesauce), there was trace penetration above the vocal folds, but no aspiration. Liquid Intake Recommendation: [place] Thick Liquid Intake Strategies: Small Sips, No Straws, Liquids by Teaspoon Only Dietary Recommendations: Pureed (NDD1) Medication Administration: Crushed with Puree Please contact the pharmacy regarding appropriate crushable or liquid drug formulations that are available whenever modified delivery is recommended. Compensatory Strategies Recommended: Sitting Upright (90 deg), Double Swallow, No Straw, Liquids from Spoon, Small Bites and Sips, Rate of Ingestion Change, Oral Check, Avoid Specific Foods Supervision during eating and or drinking: Total Assistance (1:1) Recommendation for Speech Therapy: Text Comment: Intake Recommendations: Route: PO Diet Grade: Puree Liquid Consistencies: [place] Post-Study Functional Oral Intake Scale (FOIS): 5- Total oral intake of multiple consistencies requiring special preparation This exam revealed silent aspiration on thin liquid and trace penetration above the vocal folds on puree. No evidence of penetration or aspiration on nectar thick liquid. Mild oral and pharyngeal residue cleared with subsequent swallows. Based on these observations, patient is recommended a pureed diet (National Dysphagia Diet Level I) with nectar thick liquids. He will continue to require 1:1 feeding and close monitoring given his risk of aspiration. The following strategies are recommended to maximize safety: -Minimize distraction during meal time -Ensure patient is awake, alert, and attending to meal -Select thicker, more viscous, and thoroughly blended purees, such as pudding and thick yogurt, which form a cohesive bolus on the spoon. Avoid purees such as applesauce and pureed peaches, as these often separate into a mixed texture with thin liquid. -Strict oral care routine to reduce risk of aspiration pneumonia: Use small sponge to remove dried secretions, wash with toothbrush and toothpaste, rinse with mouthwash that does not contain alcohol. -Oral care to be provided before patient?s first meal and after each meal. -Give small bites of food -Watch for swallow and check oral cavity for clearance before giving next bite -Maintain upright 90 degree position while eating and drinking -Liquids by teaspoon and give small, individual sips -Watch for swallow and check oral cavity for clearance before giving next sip -Avoid the use of straws These recommendations were communicated to patient?s /caregiver after the exam, questions were answered/clarified, and she denied having any further questions at this time. Recommend patient?s caregiver(s) to continue monitoring his dysphagia. If there are any changes or worsening of symptoms, consult with MD, at which point a re-evaluation may be indicated. Therapy Recommendations: Therapy will be discontinued. Please re-refer if WIND FIELD MANAGER can be of further assistance. Prognosis for Improvement: The prognosis for the patient to meet nutritional needs by mouth is fair based on degree of impairment, stimulability for treatment, hx CVA. Patient is recommended a consultation with Nutrition/Weapons Engineer. Frequency/Duration: Date Range for Service Requested: Timeline to reassess: PRN Clinician - Supplemental, Miscellaneous Communication: It is important to note MBSS objective studies are snapshots in time and Patient function might vary with factors such as time of day or concomitant medical conditions. For this reason, the final treatment plan for this patient should rest with their medical care team. Additional recommendations should be considered with the totality of the Patient in mind. Thank for the opportunity to participate in the care of this patient. If you have any questions about the content of this report, please contact the [facility] at [facility]. Education: Education regarding findings from today's study and plans for therapy were provided to Family/caregiver only through Verbal Instruction. Understanding was expressed by the Family/caregiver only. Finish Specialist Clinician/Clinical Fellow: No Supervisory Statement: N/A Speech Language Pathologist: Tamela Shell M.A., CCC-WIND FIELD MANAGER
== END 2023-10-26 13:59 | disposition home or self-care (01) ==
LOC: HO.XRAY 13:58
PROVIDERS: Visit Provider Nurse Practitioner
DX: R13.12 Dysphagia, oropharyngeal phase (principal); K22.10 Ulcer of esophagus without bleeding
CPT/HCPCS: 74230; 92611

== ENCOUNTER → 2023-10-26 14:30 | Outpatient (BNV) | payer OTHER, SELFPAY | PROVIDERS: Visit Provider Physician Assistant Surgical | DX: R13.10 Dysphagia, unspecified (principal) | CPT/HCPCS: 74230 ==

== ENCOUNTER 2024-01-07 15:10 | Outpatient (AMB) | payer OTHER, SELFPAY ==
--- NOTE | 2024-01-07 15:15 | MHC.OFFVIS ---
Vital Signs 01/07/24 15:16 Height 5 ft 6 in Weight 160 lb BMI 25.8 BP 118/80 Blood Pressure Location Rt brachial Position Sitting Pulse 66 Pulse Source Pulse Oximeter Pulse Oximetry (%) 98 Oxygen Delivery Method Room Air Comment Pt reported weight. Intake Visit Reasons: s/p EGD 10/19/23 Dr. Ricardo Intake Note: Bebe presents in office today for a scheduled post op FUV. CC; Pt denies any significant sx or concerns post op. However, they did experience some mouth sores after the s/p. Pt is here to discuss results of egd. Certified Pathology Assistant Required: No Accompanied by: Spouse Allergies No Known Allergies Allergy (Verified 01/07/24 15:15) HPI HPI s/p EGD 10/19/23 Dr. Ricardo: Details: Assessment & Plan (1) Oropharyngeal dysphagia: Code(s): R13.12 - Dysphagia, oropharyngeal phase (2) Constipation: Code(s): K59.00 - Constipation, unspecified (3) Esophageal erosions: Code(s): K22.10 - Ulcer of esophagus without bleeding Plan Nikky # translates per pt request He has been having slightly harder time swallowing, but he had not had a return to his past choking and severe dysphagia. We discuss that we can repeat the EGD and/or the barium swallow with speech therapy. His would like both, but not until the spring - this is fine. He continues on the cimetidine, has not been taking the sucralfate. We discontinued this on purpose because he was having trouble with constipation that likely is also exacerbated by his clonidine. We can always reconsider starting the sucralfate if needed. ROV 6 mos. Orders: Orders EGD with López - GI Use Only Today K22.10 - Ulcer of esophagus without bleeding, R13.12 - Dysphagia, oropharyngeal phase FL barium swallow modified Today K22.10 - Ulcer of esophagus without bleeding, R13.12 - Dysphagia, oropharyngeal phase Medications: Refilled cimetidine 400 mg PO BEDTIME 30 tabs 6RF Barium swallow modified 11/16/23 IMPRESSION: Trace laryngeal penetration was seen with puree consistency barium. Aspiration was observed with thin barium. Refer to the speech therapy report for further clarification SPEECH THERAPY REPORT MBSImP Results: Lip closure for intraoral bolus containment could not be assessed due to logistical reasons not related to physiologic impairment. Tongue control during bolus hold could not be assessed due to logistical reasons not related to physiologic impairment. Bolus preparation and mastication received the highest impairment score; solid not given due to patient safety concerns related to oral impairment. Bolus transport/lingual motion was with repetitive/disorganized motion of the tongue. Oral residue was a collection on oral structures. Initiation of the pharyngeal swallow occurred when the bolus head was in the pyriform sinuses. Soft palate elevation resulted in no bolus between the soft palate and the pharyngeal wall. Laryngeal elevation was decreased, with partial superior movement of the thyroid cartilage/partial approximation of the arytenoids to the epiglottic petiole. Anterior hyoid excursion demonstrated no movement. Epiglottic movement resulted in no inversion. Laryngeal vestibular closure was incomplete, with a narrow column of air/contrast noted within the laryngeal vestibule at the height of the swallow. Pharyngeal stripping wave was present, but diminished. Pharyngeal contraction could not be determined due to logistical reasons not related to physiologic impairment. Pharyngoesophageal segment opening demonstrated partial distension/partial duration, with partial obstruction of bolus flow. Tongue base retraction allowed a narrow column of contrast or air between the retracted tongue base and the posterior pharyngeal wall. Pharyngeal residue was a collection of residue within or on pharyngeal structures. Esophageal clearance in the upright position could not be assessed due to logistical reasons not related to physiologic impairment. Oral Impairment Score: 11 (absence of score, component 1component 2) Pharyngeal Impairment Score: 12 (absence of score, component 13) Esophageal Impairment Score: --- (absence of score, component 17) Laryngeal Penetration and Aspiration: Both Penetration and Aspiration were observed in today's study. Puree (applesauce) entered the airway, remained above the vocal folds, and was ejected from the airway. Thin Contrast entered the airway, passed below the vocal folds, and no effort was made to eject. ASSESSMENT: This exam was conducted by the speech pathologist and the radiologist. Patient was seated upright at 90 degrees and was fed with 1:1 assistance. He trialed thin (via teaspoon), nectar thick (via teaspoon, straw), and puree (pudding vs. applesauce) textures. Disorganized posterior lingual motion, characterized by repetitive and prolonged tongue pumping, resulting in posterior spillage into the valleculae and pyriform sinuses prior to initiation of the pharyngeal swallow. Pharyngeal swallow was delayed and initiated at the level of the pyriform sinuses. No evidence of nasopharyngeal reflux. Partial laryngeal elevation with no epiglottic inversion and episodes of tracheal aspiration. There was minimal collection of residue in the valleculae, in the pyriforms, and on the posterior pharyngeal wall which cleared with subsequent swallows. There was aspiration with thin liquid. Patient did not elicit a spontaneous cough and did not follow commands to cough and clear his throat. No aspiration or penetration noted on nectar thick liquid and puree (pudding). With trial of puree (applesauce), there was trace penetration above the vocal folds, but no aspiration. Liquid Intake Recommendation: [place] Thick Liquid Intake Strategies: Small Sips, No Straws, Liquids by Teaspoon Only Dietary Recommendations: Pureed (NDD1) Medication Administration: Crushed with Puree Please contact the pharmacy regarding appropriate crushable or liquid drug formulations that are available whenever modified delivery is recommended. EGD 10/20/23 Larynx: Normal Esophagus: GE junction at 35 cms, hiatal hernia 35 to 40 cms. Severe [place] grade D esophagitis from 28 to 35 cms. Edematous folds in the distal esophagus from 30 to 35 cms - biopsied. A mid size upper endoscope passed through the mass with minimal resistance. Stomach: Mild gastric erythema - biopsies are obtained for Helicobacter pylori. Grade 4 flap valve on retroflexed examination of the cardia. Duodenum: Multiple 1 to 2 cms superficial ulcers in the bulb - biopsied. Normal descending duodenum Esophagus: GE junction at 35 cms. Mildly tortuous esophagus Stomach: Nodular appearing mucosa in the gastric body and fundus - biopsied. Moderate diffuse gastric erythema - biopsies were obtained from the antrum. Grade 2 flap valve on retroflexed examination of the cardia. Duodenum: Normal bulb and descending duodenum Intervention: Biopsies as noted above Impression and Post Procedure Diagnosis: Endoscopy Findings: ESOPHAGUS: GE junction at 35 cms. Mildly tortuous esophagus STOMACH: Nodular appearing mucosa in the gastric body and fundus - biopsied. Moderate diffuse gastric erythema - biopsies were obtained from the antrum. Biopsy Received: 10/20/23 Diagnosis A. Duodenum, ulcer, biopsy: Ulcerative duodenitis; negative for dysplasia. B. Stomach, antrum, biopsy: Antral-type and oxyntic mucosa with mild chronic inactive inflammation; no Helicobacter organisms seen. C. Esophagus, distal, biopsy: - Cardiac-type mucosa with mild chronic inactive inflammation and intestinal metaplasia; negative for dysplasia. - No squamous epithelium identified. Comment: The findings in part C are consistent with [place] esophagus if sampled from the tubular esophagus. TODAY'S VISIT Nikky # translates per patient request Speech therapy report showing severe dysphagia and doubt about whether he can maintain good nutrition on a gel/honey thick liquid diet. I have ordered EGD marsha. He is now on omeprazole 20 mg twice a day which is likely a profile. Given the duodenal ulcers and the Barretts esophagus. He was on cimetidine in the past. Return office visit in 6 months [facility] Medical History Colon cancer screening Expressive aphasia History of stroke Spastic hemiparesis affecting dominant side Esophageal ulcer Vitamin D deficiency Iron deficiency anemia Right hemiplegia Cerebrovascular accident (CVA) 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) Pure hypercholesterolemia Benign essential hypertension CVA (cerebral vascular accident) Surgical History History of esophagogastroduodenoscopy (EGD) Family History Other Family history non-contributory Social History Housing: House Alcohol intake: former Patient Tobacco Use Status: Never used Tobacco e-Cigarette/Vaping Use: Never Used Second Hand Smoke Exposure: No service: No Current occupational status: disabled Cognitive needs: Yes (wheelchair) Hearing needs: No Vision needs: No Review of Systems Const Denies fatigue, Denies fever(s), Reports frequent falls, Denies night sweats, Denies poor appetite, Reports weakness and Denies weight loss ENT Reports Normal hearing present, Denies dental pain, Reports dysphagia, Denies hearing loss, Denies mouth pain, Denies odynophagia, Reports disequilibrium, Denies throat swelling, Denies tongue swelling and Reports other (Dentition adequate) Card Reports no additional complaints Resp Reports no additional complaints GI Details: Denies abdominal pain, Denies melena, Denies bloating, Denies hematochezia, Denies constipation, Denies GI cramping, Reports dysphagia, Denies excessive flatus, Denies early satiety, Reports heartburn, Denies diarrhea, Denies nausea, Denies odynophagia, Denies vomiting and Denies hematemesis Musc Reports abnormal gait Skin/Breast Denies pruritus, Denies lesions, Denies rash and Denies jaundice Neuro Reports Normal hearing present, Reports abnormal gait, Reports frequent falls, Reports disequilibrium and Reports weakness Endo Denies fatigue Aller/Immun Denies throat swelling and Denies tongue swelling Physical Exam Vital Signs: Last Vital Signs Pulse 66 01/07/24 15:16 BP 118/80 01/07/24 15:16 Pulse Ox 98 01/07/24 15:16 Oxygen Delivery Method Room Air 01/07/24 15:16 BMI result Body Mass Index 25.8 Const General: cooperative, no acute distress, well developed and well groomed Nutritional Appearance: well nourished and thin Orientation/consciousness: oriented to person, oriented to place and oriented to time Limitations: language barrier, wheelchair and other limitations HEENT Head: Yes normocephalic and Yes atraumatic Eyes General: appearance normal, both eyes and all related structures Pupils: Equal, round and reactive pupils present Neck Neck: Yes normal visual inspection and Yes no lymphadenopathy Thyroid: Thyroid normal Resp Effort & Inspection: normal respiratory effort and able to speak in complete sentences Auscultation: clear to auscultation bilaterally Cardio Rate: regular rate Rhythm: regular rhythm Heart sounds: Normal, physiologic split S2 sound present Peripheral pulses: radial pulses present and posterior tibial pulses present GI Inspection: No distended and No Abdominal panniculus present Palpation (GI): Soft to palpation, nontender, no guarding, not rigid and No hepatosplenomegaly present Percussion: Yes normal to percussion Auscultation: normal bowel sounds Rectal Exam - Male: Yes deferred Skin General skin exam: no rashes or lesions noted, turgor normal, skin not dry, no jaundice, No spider nevi and no striae Rashes: no rashes Nails: normal Neuro General: oriented to person, oriented to place and oriented to time Cranial nerves: Yes Equal, round and reactive pupils present and Yes Normal hearing present Extrem General: Yes normal to inspection, No clubbing, No cyanosis and No edema Psych Appearance: grossly normal and well kempt Mental Status: mental status grossly normal Speech and movement: Mute speech present Affect: normal affect Attitude: cooperative Thought process: not confabulating and Other thought process findings present Thought content: Normal thought content present Insight: Limited insight present (Psych) Judgement: Limited judgement present (Psych) Results Reviewed Results Reviewed: Barium swallow modified 11/16/23 IMPRESSION: Trace laryngeal penetration was seen with puree consistency barium. Aspiration was observed with thin barium. Refer to the speech therapy report for further clarification SPEECH THERAPY REPORT MBSImP Results: Lip closure for intraoral bolus containment could not be assessed due to logistical reasons not related to physiologic impairment. Tongue control during bolus hold could not be assessed due to logistical reasons not related to physiologic impairment. Bolus preparation and mastication received the highest impairment score; solid not given due to patient safety concerns related to oral impairment. Bolus transport/lingual motion was with repetitive/disorganized motion of the tongue. Oral residue was a collection on oral structures. Initiation of the pharyngeal swallow occurred when the bolus head was in the pyriform sinuses. Soft palate elevation resulted in no bolus between the soft palate and the pharyngeal wall. Laryngeal elevation was decreased, with partial superior movement of the thyroid cartilage/partial approximation of the arytenoids to the epiglottic petiole. Anterior hyoid excursion demonstrated no movement. Epiglottic movement resulted in no inversion. Laryngeal vestibular closure was incomplete, with a narrow column of air/contrast noted within the laryngeal vestibule at the height of the swallow. Pharyngeal stripping wave was present, but diminished. Pharyngeal contraction could not be determined due to logistical reasons not related to physiologic impairment. Pharyngoesophageal segment opening demonstrated partial distension/partial duration, with partial obstruction of bolus flow. Tongue base retraction allowed a narrow column of contrast or air between the retracted tongue base and the posterior pharyngeal wall. Pharyngeal residue was a collection of residue within or on pharyngeal structures. Esophageal clearance in the upright position could not be assessed due to logistical reasons not related to physiologic impairment. Oral Impairment Score: 11 (absence of score, component 1component 2) Pharyngeal Impairment Score: 12 (absence of score, component 13) Esophageal Impairment Score: --- (absence of score, component 17) Laryngeal Penetration and Aspiration: Both Penetration and Aspiration were observed in today's study. Puree (applesauce) entered the airway, remained above the vocal folds, and was ejected from the airway. Thin Contrast entered the airway, passed below the vocal folds, and no effort was made to eject. ASSESSMENT: This exam was conducted by the speech pathologist and the radiologist. Patient was seated upright at 90 degrees and was fed with 1:1 assistance. He trialed thin (via teaspoon), nectar thick (via teaspoon, straw), and puree (pudding vs. applesauce) textures. Disorganized posterior lingual motion, characterized by repetitive and prolonged tongue pumping, resulting in posterior spillage into the valleculae and pyriform sinuses prior to initiation of the pharyngeal swallow. Pharyngeal swallow was delayed and initiated at the level of the pyriform sinuses. No evidence of nasopharyngeal reflux. Partial laryngeal elevation with no epiglottic inversion and episodes of tracheal aspiration. There was minimal collection of residue in the valleculae, in the pyriforms, and on the posterior pharyngeal wall which cleared with subsequent swallows. There was aspiration with thin liquid. Patient did not elicit a spontaneous cough and did not follow commands to cough and clear his throat. No aspiration or penetration noted on nectar thick liquid and puree (pudding). With trial of puree (applesauce), there was trace penetration above the vocal folds, but no aspiration. Liquid Intake Recommendation: [place] Thick Liquid Intake Strategies: Small Sips, No Straws, Liquids by Teaspoon Only Dietary Recommendations: Pureed (NDD1) Medication Administration: Crushed with Puree Please contact the pharmacy regarding appropriate crushable or liquid drug formulations that are available whenever modified delivery is recommended. EGD 10/20/23 Larynx: Normal Esophagus: GE junction at 35 cms, hiatal hernia 35 to 40 cms. Severe [place] grade D esophagitis from 28 to 35 cms. Edematous folds in the distal esophagus from 30 to 35 cms - biopsied. A mid size upper endoscope passed through the mass with minimal resistance. Stomach: Mild gastric erythema - biopsies are obtained for Helicobacter pylori. Grade 4 flap valve on retroflexed examination of the cardia. Duodenum: Multiple 1 to 2 cms superficial ulcers in the bulb - biopsied. Normal descending duodenum Esophagus: GE junction at 35 cms. Mildly tortuous esophagus Stomach: Nodular appearing mucosa in the gastric body and fundus - biopsied. Moderate diffuse gastric erythema - biopsies were obtained from the antrum. Grade 2 flap valve on retroflexed examination of the cardia. Duodenum: Normal bulb and descending duodenum Intervention: Biopsies as noted above Impression and Post Procedure Diagnosis: Endoscopy Findings: ESOPHAGUS: GE junction at 35 cms. Mildly tortuous esophagus STOMACH: Nodular appearing mucosa in the gastric body and fundus - biopsied. Moderate diffuse gastric erythema - biopsies were obtained from the antrum. Biopsy Received: 10/20/23 Diagnosis A. Duodenum, ulcer, biopsy: Ulcerative duodenitis; negative for dysplasia. B. Stomach, antrum, biopsy: Antral-type and oxyntic mucosa with mild chronic inactive inflammation; no Helicobacter organisms seen. C. Esophagus, distal, biopsy: - Cardiac-type mucosa with mild chronic inactive inflammation and intestinal metaplasia; negative for dysplasia. - No squamous epithelium identified. Comment: The findings in part C are consistent with [place] esophagus if sampled from the tubular esophagus. Assessment & Plan Assessment & Plan (1) Constipation: Code(s): K59.00 - Constipation, unspecified Category: Medical (2) Erosive esophagitis: Code(s): K22.10 - Ulcer of esophagus without bleeding Category: Medical (3) Oropharyngeal dysphagia: Code(s): R13.12 - Dysphagia, oropharyngeal phase Category: Medical Plan Nikky # translates per patient request Speech therapy report showing severe dysphagia and doubt about whether he can maintain good nutrition on a gel/honey thick liquid diet. I have ordered EGD marsha. He is now on omeprazole 20 mg twice a day which is likely a profile. Given the duodenal ulcers and the Barretts esophagus. He was on cimetidine in the past. Return office visit in 6 months Medications: Discontinued cimetidine Discontinued Reason: Doctor's Order 400 mg PO BEDTIME 30 tabs 6RF Coding Level of Care Code Est Pt Level 3 (54381) Diagnoses Constipation K59.00 Erosive esophagitis K22.10 Oropharyngeal dysphagia R13.12
[2024-01-07 15:16] VITALS: BP 118/80; PULSE 66; O2SAT 98; BMI 25.8
== END 2024-01-07 15:39 | disposition home or self-care (01) ==
PROVIDERS: PCP Internal Medicine; Visit Provider Nurse Practitioner
DX: K59.00 Constipation, unspecified (principal); K22.10 Ulcer of esophagus without bleeding; R13.12 Dysphagia, oropharyngeal phase
CPT/HCPCS: 99213

== ENCOUNTER → 2024-01-07 15:10 | Outpatient (BNVA) | payer OTHER, SELFPAY | PROVIDERS: PCP Internal Medicine; Visit Provider Nurse Practitioner | DX: K59.00 Constipation, unspecified (principal); K22.10 Ulcer of esophagus without bleeding; R13.12 Dysphagia, oropharyngeal phase | CPT/HCPCS: 99212 ==

== ENCOUNTER 2024-02-13 09:17 | Outpatient (REF) | payer OTHER, SELFPAY ==
[2024-02-13 10:16] LABS: MANUAL DIFF FLAG NO
[2024-02-13 10:36] LABS: Basophils Absolute Auto 0.1 X10*3/uL (0.0-0.2); Basophils Percent Auto 1.6 % (0-2); Eosinophils Absolute Auto 0.9 X10*3/uL (0.0-0.4); Eosinophils Percent Auto 11.5 % (0-4); Hemoglobin 16.1 g/dl (14.0-18.0); Imm Gran Abs Auto 0.03 X10*3/uL (0.00-0.03); Imm Gran Pct Auto 0.4 % (0.0-0.4); Lymphocytes Absolute Auto 0.9 X10*3/uL (1.2-4.9); Mean Corpuscular HGB Conc 34.3 g/dl (31.0-36.0); Mean Corpuscular Hemoglobin 29.5 pg (27.0-33.0); Mean Corpuscular Volume 86.2 fL (80.0-98.0); Mean Platelet Volume 9.7 fL (9.4-12.4); Monocytes Absolute Auto 0.6 X10*3/uL (0.1-1.2); Monocytes Percent Auto 8.3 % (2-11); Neutrophils Percent Auto 66.2 % (45-73); Platelet Count 200 X10*3/uL (160-400); Red Blood Count 5.45 X10*6/uL (4.60-5.80); Red Cell Distribution Width 12.4 % (11.0-16.0); White Blood Count 7.6 X10*3/uL (4.8-10.8)
[2024-02-13 10:42] LABS: Estimated Average Glucose 103 mg/dL; Hemoglobin A1c % 5.2 % (<6.0)
[2024-02-13 11:11] LABS: Alanine Aminotransferase 18 U/L (0-40); Albumin Level 4.2 g/dL (3.5-5.0); Alkaline Phosphatase 96 U/L (39-117); Anion Gap 13 (12-20); Aspartate Amino Transferase 15 U/L (5-37); Bilirubin Total 0.4 mg/dL (0.0-1.0); Blood Urea Nitrogen 12 mg/dL (9-16); Calcium 9.6 mg/dL (8.4-10.2); Carbon Dioxide 26 mmol/L (22-29); Chloride 110 mmol/L (96-108); Cholesterol 179 mg/dL (<200); Estimated Glomerular Filt Rate > 60; Glucose Fasting 95 mg/dL (60-99); HDL Cholesterol 43 mg/dL (>40); LDL Cholesterol Calculated 116 mg/dL (<100); Potassium 4.7 mmol/L (3.3-5.1); Sodium 144 mmol/L (135-145); Total Protein 7.3 g/dL (6.5-8.0); Triglycerides 104 mg/dL (<150)
[2024-02-13 11:27] LABS: TSH reflex Free T4 1.52 uIU/mL (0.32-4.0); Vitamin D 25-OH Total 53.6 ng/mL (>30)
[2024-02-13 11:43] LABS: Appearance Urine Clear; Color Urine Yellow; Glucose Urine UA Negative (Negative); Leukocyte Esterase Urine Negative (Negative); Nitrite Urine Negative (Negative); PH 6.5 (5.0-9.0); Specific Gravity - Urine 1.015 (1.005-1.025); Urine Blood Negative (Negative); Urine Ketones Negative (Negative); Urine Protein Trace mg/dL (Neg-Trace)
== END 2024-02-13 09:18 | disposition home or self-care (01) ==
LOC: HO.LAB 09:17
PROVIDERS: PCP Internal Medicine; Visit Provider Internal Medicine
DX: R30.0 Dysuria (principal); E55.9 Vitamin D deficiency, unspecified; R73.01 Impaired fasting glucose; D64.9 Anemia, unspecified; E78.00 Pure hypercholesterolemia, unspecified
CPT/HCPCS: 36415; 80053; 80061; 81003; 82306; 83036; 84443; 85025

== ENCOUNTER 2024-02-17 16:02 | Outpatient (AMB) | payer OTHER, SELFPAY ==
[2024-02-17 16:03] VITALS: BP 122/80; PULSE 64; O2SAT 97; BMI 23.7
--- NOTE | 2024-02-17 16:03 | MHC.PC.OV ---
Vital Signs 02/17/24 16:03 Height 5 ft 6 in Weight 146 lb 13.246 oz BMI 23.7 BP 122/80 Blood Pressure Location Lt brachial Position Sitting Pulse 64 Pulse Source Pulse Oximeter Pulse Oximetry (%) 97 Oxygen Delivery Method Room Air Intake Visit Reasons: CVA, hyperlipidemia Network And Threat Support Specialist Required: No Accompanied by: Self / Same As Patient Allergies No Known Allergies Allergy (Verified 02/17/24 16:31) Medication List - Last Reconciled 02/17/24 by Raman Torrez MD amlodipine 10 mg PO DAILY atorvastatin 10 mg PO BEDTIME cholecalciferol (vitamin D3) 50 mcg PO DAILY 90 days clonidine HCl 0.1 mg PO BID 90 days [LIGHTWEIGHT FOLDING WHEELCHAIR (medium) As directed] losartan 100 mg PO DAILY 90 days omeprazole 20 mg PO BID 60 days quetiapine 25 mg PO BEDTIME [ROLLATOR with SEAT As directed] valproic acid 500 mg (2 x 250 mg) PO QAM vitamin B complex 1 cap PO DAILY Tobacco use date assessed: 02/17/24 Dental Screening Dental Screen Date: 02/17/24 Did you have a dental visit in the last 12 months?: No Did you have a dental problem in the last 6 months where you did not have access to dental care?: No Was dental information given to patient?: Patient has dentist HPI CVA, hyperlipidemia HPI Details Patient comes in today for his follow up visit States that he feels okay He appears to have lost a lot of weight since his last visit - his states that she has cut him back a lot on his food as well as his carb intake although patient has been reportedly eating a lot of ice cream lately this time around He denies any headaches or dizziness Denies any chest pains, no SOB No nausea/vomiting, no abdominal pain No change in bowel habits noted He had his follow up labs done last weekend - to discuss his results He had EGD done by Dr. 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 1. Little interest or pleasure in doing things: not at all 2. Feeling down, depressed, or hopeless: not at all 3. Trouble falling or staying asleep, or sleeping too much: not at all 4. Feeling tired or having little energy: not at all 5. Poor appetite or overeating: not at all 6. Feeling bad about yourself - or that you are a failure or have let yourself or your family down: not at all 7. Trouble concentrating on things, such as reading the newspaper or watching television: not at all 8. Moving or speaking so slowly that other people could have noticed. Or the opposite - being so fidgety or restless that you have been moving around a lot more than usual: not at all 9. Thoughts that you would be better off or of hurting yourself in some way: not at all Total score: 0 Depression Screening Interpretation: Negative Depression Screening Done: Yes 63373 - PHQ-9 Billing: Yes Source: Developed by Drs. Feng Alcaraz, Rubia Galvan, Sulaiman Daniel and colleagues, with an educational rachele from [employer]. Thrive Questionnaire Date Thrive assessed: 02/17/24 I am a: Patient What is your living situation today?: I have a steady place to live Within the past 12 months, did the food you bought not last and you didn't have the money to get more?: Never true Within the past 12 months, did you worry whether your food would run out before you got money to buy more?: Never true Do you have trouble paying for medicines?: No Do you have trouble getting transportation to medical appointments?: No Do you have trouble paying your heating and electricity bill?: No Do you have trouble taking care of your child, family member or friend?: No Do you have trouble with day-to-day activities such as bathing, preparing meals, shopping, managing finances, etc.?: No Are you currently unemployed and looking for a job?: No Are you interested in more education?: No Please select the resources that you would like help with: None Currently or been in a relationship where the following occur: No concerns reported THRIVE Score: 0 AUDIT C Alcohol Use Questionnaire (AUDIT-C) 1. How often do you have a drink containing alcohol?: Never 3. How often do you have six or more drinks on one occasion?: Never Total Score: 0 Score Reviewed/Action Taken: Yes JAREK-7 AMB Questionnaire JAREK-7 Date JAREK - 7 assessed: 02/17/24 Feeling nervous, anxious, or on edge: 0 = Not at all Not being able to stop or control worryin = Not at all Worrying too much about different things: 0 = Not at all Trouble relaxin = Not at all Being so restless that it is hard to sit still: 0 = Not at all Becoming easily annoyed or irritable: 0 = Not at all Feeling afraid as if something awful might happen: 0 = Not at all Total JAREK-7 score (0-4 normal; 5-9 mild; 10-14 moderate; 15-21 severe): 0 Source: Developed by Drs. Feng Alcaraz, Rubia Galvan, Sulaiman Daniel and colleagues, with an educational rachele from [employer]. JAREK-7 Assessment Billing JAREK-7 Assessment Tool: JAREK-7 Assessment 48238 Review of Systems Const Denies chills, Denies fatigue, Denies fever(s) and Denies headache(s) ENT Reports dysphagia ((+) some improvement with speech & swallow therapy and Rx), Denies dizziness, Denies otalgia, Denies headache(s), Denies neck pain, Denies odynophagia and Denies sore throat Card Denies chest pain, Denies palpitations and Denies dyspnea Resp Denies cough and Denies dyspnea GI Denies abdominal pain, Denies constipation, Reports dysphagia ((+) some improvement with speech & swallow therapy and Rx), Denies dyspepsia, Denies heartburn, Denies diarrhea, Denies nausea, Denies odynophagia and Denies vomiting Denies dysuria, Denies nocturia and Denies urinary frequency Musc Denies back pain and Denies neck pain Skin/Breast Denies rash Neuro Details: (+) right-sided weakness (S/P CVA) Denies dizziness and Denies headache(s) Endo Denies fatigue and Denies palpitations Physical exam (Primary Care) Vital Signs: Last Vital Signs Pulse 64 02/17/24 16:03 BP 122/80 02/17/24 16:03 Pulse Ox 97 02/17/24 16:03 Oxygen Delivery Method Room Air 02/17/24 16:03 BMI result Body Mass Index 23.7 Tobacco/Smoking Status: Tobacco use Status Tobacco use date assessed 02/17/24 02/17/24 16:10 Patient Tobacco Use Status Never used Tobacco 02/17/24 16:10 e-Cigarette/Vaping Use Never Used 02/17/24 16:10 PHQ-9: PHQ-9 Score PHQ-9: Total score 0 02/17/24 20:48 Depression Screening Interpretation: Negative Thrive Assessment: Date of Thrive Assessment Date Thrive assessed 02/17/24 02/17/24 16:10 Currently or been in a relationship where the following occur: No concerns reported Const Other: Information is obtained partially through patient's as he is limited in his ability to communicate due to his aphasia General: no acute distress and alert Limitations: wheelchair HENMT Ears: TM's normal bilaterally and EAC's normal Throat: Yes posterior oropharynx normal and Yes tonsils normal (no TP congestion noted) Neck Neck: Yes no lymphadenopathy and Yes supple Thyroid: Thyroid normal Resp Auscultation: clear to auscultation bilaterally, no rales and no wheezes Cardio Rate: regular rate Rhythm: regular rhythm Heart sounds: no murmurs GI Palpation (GI): Soft to palpation and nontender Auscultation: normal bowel sounds Skin Rashes: no rashes Neuro Other: (+) right hemiparesis and (+) aphasia Extrem General: No clubbing, No cyanosis and Yes edema (1+ bipedal pitting edema noted) Results Reviewed Results Reviewed: Laboratory Tests 05/26/23 02/13/24 16:31 10:10 WBC 7.6 Hgb 16.1 Hct 47.0 Plt Count 200 Sodium 138 144 Potassium 3.5 4.7 Creatinine 1.23 Estimated GFR > 60 Fasting Glucose 95 Hemoglobin A1c % 5.2 Calcium 9.6 AST 15 ALT 18 Triglycerides 104 Cholesterol 179 LDL Cholesterol, Calc 116 H HDL Cholesterol 43 25-OH Vitamin D Total 53.6 TSH 1.52 Ur Specific [place] 1.015 Urine Protein Trace Urine Glucose (UA) Negative Urine Blood Negative Urine Nitrite Negative Ur Leukocyte Esterase Negative Assessment and Plan Assessment & Plan (1) Cerebrovascular accident (CVA): Comment: x3 (2002, 2005 and 2008) Code(s): I63.9 - Cerebral infarction, unspecified Qualifiers: CVA mechanism: unspecified Qualified Code(s): I63.9 - Cerebral infarction, unspecified Plan: S/P CVA a few years ago with residual right hemiparesis and aphasia states that patient's overall mobility and gait quality have improved a lot with physical therapy in the past (2) Right hemiplegia: Code(s): G81.91 - Hemiplegia, unspecified affecting right dominant side Plan: Patient's overall mobility and gait quality have reportedly improved a lot with physical and occupational therapy and will continue with PT/OT as scheduled or as needed He was also referred to physiatry for further management previously when his indicated that his right-sided weakness has gotten worse and was recommended for physical therapy again (3) Esophageal ulcer: Comment: EGD done 03/2022 Code(s): K22.10 - Ulcer of esophagus without bleeding Qualifiers: Esophageal ulcer bleeding: without bleeding Qualified Code(s): K22.10 - Ulcer of esophagus without bleeding Plan: Esophageal biopsy done back in March 2022 revealed (+) cardiac-type mucosa with mild chronic inactive inflammation and no intestinal metaplasia seen. Lesions are polypoid, eroded and ulcerated squamous mucosa and fragment of ulcer bed but no malignancy is identified Patient reported (+) improvement of his symptoms of dysphagia and choking sensation over the next few months and he has been eating very well since, per his Continue Cimetidine 400 mg Q HS He was also started on Carafate but he disliked the taste of the medication and found it constipating and self-discontinued the medication after a while He was supposedly being scheduled for repeat EGD sometime last spring (2022) but this never occurred He was then seen by GI a few months later and was reportedly advised that since his symptoms have improved a lot, he can hold off on repeat EGD at the time and to just follow up again in 6 months unless symptoms flare up or recur He eventually underwent repeat EGD in October 2023, which revealed findings of severe esophagitis, multiple duodenal ulcers, hiatal hernia and esophageal nodules. Biopsies done showed no dysplasia and H. pylori came back negative Follow up with GI as scheduled (4) Aspiration of food: Code(s): T17.928A - Food in respiratory tract, part unspecified causing other injury, initial encounter Qualifiers: Encounter type: initial encounter Qualified Code(s): T17.928A - Food in respiratory tract, part unspecified causing other injury, initial encounter Plan: Modified barium swallow done last year revealed (+) martita laryngeal aspiration with thin barium and barium-coated puree He has been referred for swallowing evaluation and training/therapy, which he completed States that his issues with swallowing has improved a lot with swallow therapy Repeat modified barium swallow revealed trace laryngeal penetration was seen with puree consistency barium and aspiration was observed with thin barium He was seen by speech therapy for further recommendations and was recommended a pureed diet (National Dysphagia Diet Level I) with nectar thick liquids. He will continue to require 1:1 feeding and close monitoring given his risk of aspiration Patient and his were also reportedly educated on the appropriate feeding strategies to help maximize safety (5) Benign essential hypertension: Code(s): I10 - Essential (primary) hypertension Plan: Reinforced low sodium diet - goal is systolic BP of at least 130 mm or less Continue Amlodipine 10 mg QD, Losartan 100 mg QD and Clonidine 0.1 mg BID (6) Pure hypercholesterolemia: Code(s): E78.00 - Pure hypercholesterolemia, unspecified Plan: Results of his labs done last weekend reviewed and discussed with patient and his - have advised that his overall cholesterol numbers have improved a lot but his LDL cholesterol has increased from previous His admits that patient has been eating a lot of ice cream lately - reinforced low cholesterol diet Continue Atorvastatin 10 mg QD for now but advised that we may need to increase his dose if his LDL cholesterol does not improve significantly over the next few months Will have him recheck his labs and fasting lipids again in 4 months for follow up (7) Impaired fasting glucose: Code(s): R73.01 - Impaired fasting glucose Plan: Patient's FBS increased significantly on his previous labs (was at 132 mg/dl on his labs done a few months ago) as his stated that he was eating a lot of rice back then, which she has since cut him back His HgbA1c was again normal at 5.2% on his recent labs; in-office HgbA1c was also normal at 5.1% a few months ago Reinforced low calorie/low carb diet Will continue to monitor his FBS regularly (8) Renal insufficiency: Code(s): N28.9 - Disorder of kidney and ureter, unspecified Plan: Patient's serum creatinine and GFR have both declined on his previous labs to early stage 3 CKD numbers but his current bunbers have improved again back to normal He and his have been reminded to maintain adequate hydration Will continue to monitor his labs and renal function regularly and recheck them in 4 months for follow up (9) Iron deficiency anemia: Code(s): D50.9 - Iron deficiency anemia, unspecified Qualifiers: Iron deficiency anemia type: unspecified iron deficiency Qualified Code(s): D50.9 - Iron deficiency anemia, unspecified Plan: Corrected on his labs back in May 2021; iron studies done back in 2020 were also normal His H/H have remained normal since and are again normal on his recent labs done last weekend Will continue to monitor his CBC periodically (10) Vitamin D deficiency: Code(s): E55.9 - Vitamin D deficiency, unspecified Plan: Continue Vitamin D3 2000 units QD (11) 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 Ricardo at this time Plan Follow up in 4 months Orders: Orders Complete Blood Count Auto Diff 4 Months D64.9 - Anemia, unspecified Comprehensive [place]. Panel Fast 4 Months E78.00 - Pure hypercholesterolemia, unspecified Lipid Panel 4 Months E78.00 - Pure hypercholesterolemia, unspecified UA CC w/rflx Micro + Cult 4 Months R30.0 - Dysuria Referrals Gastroenterology Referral Z12.11 - Encounter for screening for malignant neoplasm of colon Coding Level of Care Code Est Pt Level 4 (52348) Complex EM visit Add On G2211 Diagnoses Cerebrovascular accident (CVA), unspecified mechanism I63.9 CVA mechanism: unspecified Right hemiplegia G81.91 Ulcer of esophagus without bleeding K22.10 Esophageal ulcer bleeding: without bleeding Aspiration of food, initial encounter T17.928A Encounter type: initial encounter Benign essential hypertension I10 Pure hypercholesterolemia E78.00 Impaired fasting glucose R73.01 Renal insufficiency N28.9 Iron deficiency anemia, unspecified iron deficiency anemia type D50.9 Iron deficiency anemia type: unspecified iron deficiency Vitamin D deficiency E55.9 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
== END 2024-02-17 16:55 | disposition home or self-care (01) ==
PROVIDERS: PCP Internal Medicine; Visit Provider Internal Medicine
DX: G81.91 Hemiplegia, unspecified affecting right dominant side (principal); K22.10 Ulcer of esophagus without bleeding; T17.928A Food in respiratory tract, part unspecified causing other injury, initial encounter; I10 Essential (primary) hypertension; E78.00 Pure hypercholesterolemia, unspecified; R73.01 Impaired fasting glucose; N28.9 Disorder of kidney and ureter, unspecified; D50.9 Iron deficiency anemia, unspecified; E55.9 Vitamin D deficiency, unspecified; F06.30 Mood disorder due to known physiological condition, unspecified; Z12.11 Encounter for screening for malignant neoplasm of colon
CPT/HCPCS: 99214; G2211

== ENCOUNTER 2024-03-17 04:22 | Emergency (ER) | payer OTHER, SELFPAY ==
[2024-03-17] VITALS (7 sets, daily range): BP systolic 102–118; BP diastolic 60–74; PULSE 68–85; RESP 15–21; TEMP 36.9–37.6; O2SAT 91–100; BMI 27.6
--- NOTE | ~2024-03-17 | CT_ITS ---
EXAMINATION: CT CHEST WITHOUT CONTRAST CLINICAL INFORMATION: Cough, fever, hypoxia. COMPARISON: Chest 03/17/2024 TECHNIQUE: Multidetector volumetric CT imaging of the chest was done. Axial MIP volume rendering provided. Sagittal and coronal reformatted images were obtained. This CT examination was performed using dose optimization techniques as appropriate, variously including the following: *Automated exposure control *Adjustment of mA and/or kV according to patient size (this includes techniques or standardized protocols for targeted exams where dose is matched to indication/reason for exam; i.e. extremities or head) *Use of iterative reconstruction technique DLP: 231 mGy-cm FINDINGS: LUNGS: Focal ground glass and fine reticular opacities are present within the lingula over region measuring approximately 2 cm in transaxial dimension and 2.5 cm in craniocaudal extent. Of note, images of the lungs are suboptimal secondary to motion artifact. No dense pulmonary consolidation noted. No pleural effusions or pneumothoraces. MEDIASTINUM: No lymphadenopathy. Mild scattered coronary artery calcific atherosclerosis. Normal heart size. No pericardial thickening or pericardial fluid collections. CORONARY ARTERY CALCIFICATION: Mild scattered coronary artery calcific atherosclerosis. PLEURA: There is no pleural effusion. No pleural mass or thickening. AXILLA: No lymphadenopathy. UPPER ABDOMEN: Multiple calcified gallstones within the gallbladder lumen. OSSEOUS STRUCTURES: Unremarkable. CT/CT chest wo IV con IMPRESSION: *Focal interstitial opacities within the lingula over a region measuring approximately 2 cm x 3 cm. Findings could represent focal atypical/viral infection. No dense pulmonary consolidation. No pleural effusions. *Cholelithiasis. Fleischner guidelines were followed. Electronically signed by: Fabrice Roach MD 03/17/2024 06:51 AM EDT
--- NOTE | ~2024-03-17 | XR_ITS ---
EXAMINATION: XR CHEST CLINICAL INFORMATION: Cough, fever. Aspiration risk. COMPARISON: None available. TECHNIQUE: Frontal view of the chest was obtained. FINDINGS: Dense aortic calcific atherosclerosis. Normal cardiac size. No effusions or pneumothoraces. Normal pattern of pulmonary vasculature. No focal pulmonary consolidation. XR/XR chest 1V IMPRESSION: *No acute cardiopulmonary abnormalities. Electronically signed by: Fabrice Roach MD 03/17/2024 05:45 AM EDT
--- NOTE | 2024-03-17 04:53 | ECG_ITS ---
Test Reason : SOB Blood Pressure : / mmHG Vent. Rate : 067 BPM Atrial Rate : 067 BPM P-R Int : 166 ms QRS Dur : 084 ms QT Int : 382 ms P-R-T Axes : 041 032 047 degrees QTc Int : 403 ms Normal sinus rhythm Normal ECG No previous ECGs available Referred By: Sarahi Jaffe Electronically Signed By:ARLENE VILLA
--- NOTE | 2024-03-17 04:55 | ED_ITS ---
HPI - Fever General Chief Complaint: Upper Respiratory Symptoms Stated Complaint: fever, cough Time Seen by Provider: 03/17/24 04:44 Source: patient, family and old records reviewed Mode of arrival: wheelchair Limitations: language barrier History of Present Illness ED Provider: AMANDA TERRELL Narrative: 58 yo male with PMH of CVA resulting in expressive aphasia, R sided hemiparesis and dysphagia with hx of aspiration noted on MBS 1 year ago, GERD, renal insufficiency, HTN, HLD, who presents with c/o fevers and cough since last night. also feels his gums are inflammed. No reported n/v but he does have difficulty with his foods. He has not had any travel or sick contacts. notes he is coughing up sputum. O2 sat on arrival 91% on RA - no hx of asthma or COPD and no prior smoking. after MBS speech saw patient and reccomended: a pureed diet (National Dysphagia Diet Level I) with nectar thick liquids. He will continue to require 1:1 feeding and close monitoring given his risk of aspiration MD elicited complaint: fever Pertinent past history: other Onset (ago): day(s) (1) Context: other (aspiration risk) Exacerbating factors: nothing Relieving factors: nothing Associated symptoms: chills and confusion Treatments prior to arrival fever: none Related Data Home Medications ?Medication ?Instructions ?Recorded ?Confirmed vitamin B complex 1 cap PO DAILY 04/29/22 02/17/24 Previous Rx's ?Medication ?Instructions ?Recorded ROLLATOR with SEAT #1 ea 06/17/21 LIGHTWEIGHT FOLDING WHEELCHAIR #1 ea 05/29/23 (medium) valproic acid 250 mg capsule 500 mg (2 x 250 mg) PO QAM #180 08/27/23 caps amlodipine 10 mg tablet 10 mg PO DAILY #90 tabs 10/05/23 atorvastatin 10 mg tablet 10 mg PO BEDTIME #90 tabs 10/05/23 cholecalciferol (vitamin D3) 50 50 mcg PO DAILY 90 days #90 caps 10/05/23 mcg (2,000 unit) capsule clonidine HCl 0.1 mg tablet 0.1 mg PO BID 90 days #180 tabs 10/05/23 losartan 100 mg tablet 100 mg PO DAILY 90 days #90 tabs 10/05/23 quetiapine 25 mg tablet 25 mg PO BEDTIME #90 tabs 04/22/24 omeprazole 20 mg capsule,delayed 20 mg PO BID 60 days #120 caps 10/20/23 release azithromycin 200 mg/5 mL oral 250 mg (6.25 mL) PO DAILY 5 days 03/17/24 suspension #31.25 mL cefuroxime axetil 500 mg tablet 500 mg PO BID 7 days #14 tabs 03/17/24 Allergies Allergy/AdvReac Type Severity Reaction Status Date / Time No Known Allergies Allergy Verified 03/17/24 04:36 Review of Systems 2 Review of Systems: ROS unable to be obtained due to prior CVA [facility] Past Medical History Attestation statement: The following information was validated with the patient. Source: old records reviewed Medical History Colon cancer screening Expressive aphasia History of stroke Spastic hemiparesis affecting dominant side Esophageal ulcer Vitamin D deficiency Iron deficiency anemia Right hemiplegia Cerebrovascular accident (CVA) 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) Pure hypercholesterolemia Benign essential hypertension CVA (cerebral vascular accident) Surgical History History of esophagogastroduodenoscopy (EGD) Family History Family History Other Family history non-contributory Social History Social History Housing: House Alcohol intake: former Patient Tobacco Use Status: Never used Tobacco e-Cigarette/Vaping Use: Never Used Second Hand Smoke Exposure: No Advance Directives: No Advance Directives Information Provided: Yes service: No Current occupational status: disabled Cognitive needs: Yes (wheelchair) Hearing needs: No Vision needs: No Physical Exam 2 Vital Signs: Vital Signs: Last Vital Signs Temp 99.1 F 03/17/24 06:24 Pulse 74 03/17/24 06:24 Resp 20 03/17/24 06:24 BP 104/66 03/17/24 06:24 Pulse Ox 96 03/17/24 06:40 O2 Del Method Room Air 03/17/24 06:40 BMI result Body Mass Index 27.6 Appearance: Alert. Oriented to his baseline per . No acute distress. Eyes: Pupils equal, round and reactive to light. ENT: Pharynx dry mouth, hyperemia to the gums but no abscess noted Neck: Normal inspection. Neck supple. CVS: Normal heart rate and rhythm. Pulses normal. Respiratory: No respiratory distress. Breath sounds rales noted on the R side and diminished lung sounds Abdomen: Soft and nontender. Skin: Skin warm and dry. Normal skin color. Normal skin turgor. Extremities: No lower extremity edema. No calf ttp Neuro: at his baseline, R sided hemiparesis Medications Administered Discontinued Medications Generic Name Dose Route Start Last Admin Trade Name August PRN Reason Stop Dose Admin Lactated Ringer's 1,000 mls @ 999 mls/hr 03/17/24 04:53 03/17/24 05:57 Lr IV 03/17/24 05:53 Infused .Q1H1M ONE Infusion Piperacillin Sod/Tazobactam 50 mls @ 100 mls/hr 03/17/24 04:53 03/17/24 05:51 Sod 3.375 gm/ Sodium Chloride IV 03/17/24 05:22 Infused ONCE ONE Infusion Medical Decision Making Medical Decision Making [facility] Narrative: 58 yo male with PMH of CVA resulting in expressive aphasia, R sided hemiparesis and dysphagia with MBS confirmed aspiration, GERD, renal insufficiency, HTN, HLD, here with cough and fevers with diminished lung sounds R side at this time suspect aspiration pneumonia vs viral syndrome will start on fluids, lactic acid, cultures, IV zosyn. He has initial sats of 91% will monitor closely. Differential Diagnosis Differential Diagnoses: The differential diagnosis associated with the presentation includes viral syndrome, aspiration pneumonia Admission/Observation Consideration of admission/observation: Escalation of care including admission/observation considered labs stable, small pneumonia no hypoxia feels stable for DC Lab Data [facility] Lab Attestation statement: I reviewed the patient's lab results. 03/17/24 05:02 03/17/24 05:02 Labs: Lab Results 03/17/24 03/17/24 03/17/24 Range/Units 05:02 05:10 05:13 WBC 11.8 H (4.8-10.8) X10*3/uL RBC 5.22 (4.60-5.80) X10*6/uL Hgb 15.6 (14.0-18.0) g/dl Hct 44.4 (42.0-52.0) % MCV 85.1 (80.0-98.0) fL MCH 29.9 (27.0-33.0) pg MCHC 35.1 (31.0-36.0) g/dl RDW 12.2 (11.0-16.0) % Plt Count 186 (160-400) X10*3/uL MPV 9.3 L (9.4-12.4) fL Immature Gran % (Auto) 0.3 (0.0-0.4) % Neut % (Auto) 75.3 H (45-73) % Lymph % (Auto) 6.8 L (20-40) % [place] % (Auto) 10.1 (2-11) % Eos % (Auto) 7.1 H (0-4) % Baso % (Auto) 0.4 (0-2) % Lymph # (Auto) 0.8 L (1.2-4.9) X10*3/uL [place] # (Auto) 1.2 (0.1-1.2) X10*3/uL Eos # (Auto) 0.8 H (0.0-0.4) X10*3/uL Baso # (Auto) 0.1 (0.0-0.2) X10*3/uL Abs Immat Gran (auto) 0.04 H (0.00-0.03) X10*3/uL Absolute Neuts (auto) 8.8 H (2.0-8.3) x10*3/uL Absolute Nucleated RBC 0.000 (0.0-0.012) X10*3/uL Nucleated RBC % (auto) 0.0 (0.0-0.2) /100WBC VBG pH 7.38 (7.32-7.43) VBG pCO2 45 mmHg VBG pO2 51 mmHg VBG HCO3 27 H (22-26) mmol/L VBG O2 Saturation 79.0 % VBG Base Excess 1.5 mmol/L Sodium 141 (135-145) mmol/L Potassium 3.6 D (3.3-5.1) mmol/L Chloride 106 (96-108) mmol/L Carbon Dioxide 25 (22-29) mmol/L Anion Gap 14 (12-20) BUN 8 L (9-16) mg/dL Creatinine 1.42 H (0.5-1.4) mg/dL Estim Creat Clear Calc 53.0 Estimated GFR 51 Random Glucose 102 (60-115) mg/dL Lactic Acid 1.8 (0.5-2.0) mmol/L Calcium 9.4 (8.4-10.2) mg/dL Magnesium 2.0 (1.6-2.6) mg/dL Total Bilirubin 0.8 (0.0-1.0) mg/dL Direct Bilirubin 0.3 (0.0-0.5) mg/dL AST 11 (5-37) U/L ALT 15 (0-40) U/L Alkaline Phosphatase 102 (39-117) U/L Troponin I High Sens 9.0 (<3.5-35.0) ng/L C-Reactive Protein 1.38 H (< or = 0.50) mg/dL B-Natriuretic Peptide 26 (<100) pg/mL Total Protein 7.3 (6.5-8.0) g/dL Albumin 4.0 (3.5-5.0) g/dL Lipase 38 (8-78) U/L Procalcitonin 0.05 ng/mL Influenza Type A (PCR) NEGATIVE (Negative) Influenza Type B (PCR) NEGATIVE (Negative) RSV RNA Qual (PCR) NEGATIVE (Negative) SARS-CoV-2 RNA (RT-PCR) NEGATIVE (Negative) Independent Interpretation I performed an independent interpretation of an: EKG, Plain X-Ray (R sided opacity) and CT Scan (left lingula opacity) Interpretation: Rate: 67 Rhythm: NSR [place]: normal Normal P waves. Normal SHAN[place]. Normal QRS complex. ST T wave : normal no TRAV qTC:403 prior studies: no acute ischemia The study has been interpreted contemporaneously by me. . Radiology Impression Discussion of test interpretation with radiology: I have reviewed the radiologist's reading. Independent Historian Clinical information obtained from an independent historian. History obtained from or confirmed by: Spouse External Record Review External record reviewed: Office record and Prior outpatient radiology Prescription Management I considered prescription management with: Antibiotic Discharge Plan Discharge Clinical Impression: Pneumonia Qualifiers: Pneumonia type: due to unspecified organism Laterality: left Lung location: u nspecified part of lung Qualified Code(s): J18.9 - Pneumonia, unspecified organism Patient Disposition: Home, Self-Care Instructions: Pneumonia (ED) Additional Instructions: labs reassuring start cefuroxime this afternoon oral azithromycin tomorrow return for worsening symptoms, difficulty breathing, vomiting, fevers or any other concerns stay hydrated you are mildly dehydrated Prescriptions: New azithromycin 200 mg/5 mL suspension for reconstitution 250 mg PO DAILY 5 Days Qty: 31.25 0RF Rx Instructions: 250 mg orally; cefuroxime axetil 500 mg tablet 500 mg PO BID 7 Days Qty: 14 0RF No Action valproic acid 250 mg capsule 500 mg PO QAM Qty: 180 0RF omeprazole 20 mg capsule,delayed release(DR/EC) 20 mg PO BID 60 Days Qty: 120 3RF (DME) ROLLATOR with SEAT See Rx Instructions .Route .MEDSUPPLY Qty: 1 0RF Rx Instructions: As directed (DME) LIGHTWEIGHT FOLDING WHEELCHAIR (medium) See Rx Instructions .Route .MEDSUPPLY Qty: 1 0RF Rx Instructions: As directed amlodipine 10 mg tablet 10 mg PO DAILY Qty: 90 1RF cholecalciferol (vitamin D3) 50 mcg (2,000 unit) capsule 50 mcg PO DAILY 90 Days Qty: 90 3RF atorvastatin 10 mg tablet 10 mg PO BEDTIME Qty: 90 1RF losartan 100 mg tablet 100 mg PO DAILY 90 Days Qty: 90 3RF quetiapine 25 mg tablet 25 mg PO BEDTIME Qty: 90 1RF clonidine HCl 0.1 mg tablet 0.1 mg PO BID 90 Days Qty: 180 1RF vitamin B complex Capsule 1 cap PO DAILY Print Language: Wolof
[2024-03-17 05:08] LABS: Venous Blood Gas Refer to POC result
[2024-03-17 05:09] LABS: Basophils Absolute Auto 0.1 X10*3/uL (0.0-0.2); Basophils Percent Auto 0.4 % (0-2); Eosinophils Absolute Auto 0.8 X10*3/uL (0.0-0.4); Eosinophils Percent Auto 7.1 % (0-4); Hematocrit 44.4 % (42.0-52.0); Hemoglobin 15.6 g/dl (14.0-18.0); Imm Gran Abs Auto 0.04 X10*3/uL (0.00-0.03); Imm Gran Pct Auto 0.3 % (0.0-0.4); Lymphocytes Absolute Auto 0.8 X10*3/uL (1.2-4.9); Lymphocytes Percent Auto 6.8 % (20-40); MANUAL DIFF FLAG NO; Mean Corpuscular HGB Conc 35.1 g/dl (31.0-36.0); Mean Corpuscular Hemoglobin 29.9 pg (27.0-33.0); Mean Corpuscular Volume 85.1 fL (80.0-98.0); Mean Platelet Volume 9.3 fL (9.4-12.4); Monocytes Absolute Auto 1.2 X10*3/uL (0.1-1.2); Monocytes Percent Auto 10.1 % (2-11); Neutrophils Absolute Auto 8.8 x10*3/uL (2.0-8.3); Neutrophils Percent Auto 75.3 % (45-73); Platelet Count 186 X10*3/uL (160-400); Red Blood Count 5.22 X10*6/uL (4.60-5.80); Red Cell Distribution Width 12.2 % (11.0-16.0); White Blood Count 11.8 X10*3/uL (4.8-10.8)
[2024-03-17] MEDS: Lactated Ringers 1,000 ML 999 ML IV (05:15)
[2024-03-17 05:18] LABS: VBG Base Excess 1.5 mmol/L; VBG HCO3 27 mmol/L (22-26); VBG pCO2 45 mmHg; VBG pH 7.38 (7.32-7.43); VBG pO2 51 mmHg
[2024-03-17] MEDS: Piperacillin Sodium/Tazobactam 3.375 GM in 0.9 % Sodium Chloride 50 ML IV (05:19)
[2024-03-17 05:30] LABS: Lactic Acid 1.8 mmol/L (0.5-2.0)
[2024-03-17 05:33] LABS: B Type Natriuretic Peptide 26 pg/mL (<100)
[2024-03-17 05:34] LABS: Alanine Aminotransferase 15 U/L (0-40); Alkaline Phosphatase 102 U/L (39-117); Anion Gap 14 (12-20); Aspartate Amino Transferase 11 U/L (5-37); Bilirubin Direct 0.3 mg/dL (0.0-0.5); Bilirubin Total 0.8 mg/dL (0.0-1.0); Blood Urea Nitrogen 8 mg/dL (9-16); C Reactive Protein 1.38 mg/dL (< or = 0.50); Calcium 9.4 mg/dL (8.4-10.2); Carbon Dioxide 25 mmol/L (22-29); Chloride 106 mmol/L (96-108); Estimated Glomerular Filt Rate 51; Glucose Random 102 mg/dL (60-115); Lipase 38 U/L (8-78); Potassium 3.6 mmol/L (3.3-5.1); Sodium 141 mmol/L (135-145); Total Protein 7.3 g/dL (6.5-8.0)
[2024-03-17 05:48] LABS: Procalcitonin 0.05 ng/mL
[2024-03-17 05:57] LABS: Influenza A PCR NEGATIVE (Negative); Influenza B PCR NEGATIVE (Negative); Resp Syncy Virus RNA Qual PCR NEGATIVE (Negative); SARS COV2 PCR INHOUSE NEGATIVE (Negative)
--- NOTE | 2024-03-17 06:59 | PC.NURSE ---
report recieved from previous RN, patient asleep on stretcher at this time, respirations even and unlabored, patient remains on cardiac cath technician, per MD patient to recieve IV abx and then dc. plan of care continues, remains at bedside.
[2024-03-17] MEDS: Azithromycin 500 MG in 0.9 % Sodium Chloride 250 ML 125 MG IV (07:06)
--- NOTE | 2024-03-17 08:27 | PC.NURSE ---
patient resting comfortably on stretcher, IV abx still running at this time.
== END 2024-03-17 09:07 | disposition home or self-care (01) ==
PROVIDERS: Emergency Provider Emergency Medicine; PCP Internal Medicine
DX: J18.9 Pneumonia, unspecified organism (principal); R50.9 Fever, unspecified; R05.9 Cough, unspecified; R11.0 Nausea; R07.89 Other chest pain; R06.02 Shortness of breath; Z03.818 Encounter for observation for suspected exposure to other biological agents ruled out; Z79.899 Other long term (current) drug therapy
CPT/HCPCS: 0241U; 71045; 71250; 80048; 80076; 82803; 83605; 83690; 83735; 83880; 84145; 84484; 85025; 86140; 87040; 93005; 96361; 96365; 96366; 96375; 99284; 99285; J0456; J2543; J7120

== ENCOUNTER 2024-03-31 13:48 | Outpatient (AMB) | payer OTHER, SELFPAY ==
--- NOTE | 2024-03-31 13:59 | MHC.PC.OV ---
Vital Signs 03/31/24 14:00 Height 5 ft 5 in Weight 147 lb 14.883 oz BMI 24.6 BP 108/72 Blood Pressure Location Lt brachial Position Sitting Pulse 62 Pulse Source Pulse Oximeter Pulse Oximetry (%) 98 Oxygen Delivery Method Room Air Intake Visit Reasons[place] [facility] pneumonia Senior Solutions Engineer Required: No Accompanied by: Spouse Allergies No Known Allergies Allergy (Verified 03/31/24 14:00) Tobacco use date assessed: 02/17/24 Dental Screening Dental Screen Date: 02/17/24 HPI HPI Comments History of Present Illness Details 58 y/o male patient who presents to the clinic for HDF. He is accompanied by who provides history. Pt is non verbal due to previous Stroke. Pt was admitted at [facility] 03/17/24 due to Pneumonia infection and was discharged home the same day with oral Abx. reports that symptoms have improved and no more SOB or coughing. Today reports that Patient has had Dandruff and dry scaly skin on his scalp. also reports that Patient has been c/o mouth sores, which burn when he eats spicy or hot foods. He has an appointment with Dentist in April. 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) Pure hypercholesterolemia Benign essential hypertension CVA (cerebral vascular accident) Surgical History History of esophagogastroduodenoscopy (EGD) Family History Other Family history non-contributory Social History Housing: House Alcohol intake: former Patient Tobacco Use Status: Never used Tobacco e-Cigarette/Vaping Use: Never Used Second Hand Smoke Exposure: No service: No Current occupational status: disabled Cognitive needs: Yes (wheelchair) Hearing needs: No Vision needs: No Questionnaire Thrive Questionnaire Date Thrive assessed: 02/17/24 AUDIT C Alcohol Use Questionnaire (AUDIT-C) 3. How often do you have six or more drinks on one occasion?: Never Total Score: 0 JAREK-7 AMB Questionnaire JAREK-7 Date JAREK - 7 assessed: 02/17/24 Source: Developed by Drs. Feng Alcaraz, Rubia Galvan, Sulaiman Daniel and colleagues, with an educational rachele from [employer]. Review of Systems Const All systems reviewed & are unremarkable except as noted in HPI and below Physical exam (Primary Care) Vital Signs: Last Vital Signs Pulse 62 03/31/24 14:00 BP 108/72 03/31/24 14:00 Pulse Ox 98 03/31/24 14:00 Oxygen Delivery Method Room Air 03/31/24 14:00 BMI result Body Mass Index 24.6 Tobacco/Smoking Status: Tobacco use Status Tobacco use date assessed 02/17/24 03/31/24 14:01 Patient Tobacco Use Status Never used Tobacco 03/31/24 14:01 e-Cigarette/Vaping Use Never Used 03/31/24 14:01 Thrive Assessment: Date of Thrive Assessment Date Thrive assessed 02/17/24 03/31/24 14:01 Const General: cooperative and no acute distress Orientation/consciousness: patient oriented x3 Limitations: wheelchair [facility] Head: Yes normocephalic Mouth: moist mucous membranes abnormal (mouth sores, lesions buccal. ) and tongue abnormal fissured and with lesion noted Throat: Yes uvula midline Resp Effort & Inspection: normal respiratory effort and able to speak in complete sentences Auscultation: clear to auscultation bilaterally, no crackles, no rales, no rhonchi and no wheezes Cardio Heart sounds: S1 normal heart sound present and S2 normal heart sound present Skin Other: Scaly red patches on the back of scalp General skin exam: dry skin and erythema Neuro General: patient oriented x3 Office Procedures Flu Questionnaire Does the patient have a severe egg allergy?: No Does the patient have severe life threatening allergies?: No Does the patient have a fever or illness today?: No Has the patient ever had any past reaction to a flu shot?: No Immunizations Fluarix Triv [id number] (PF) 45 mcg (15 mcg x 3)/0.5 mL IM syringe Performing Provider: Nikky Medina NP [facility] Administered by: GERMAIN Bragg on 03/31/24 14:01 Dose Route Admin Location Dispensed Lot Number Expiration Date NDC Automatic Lehr Operator 0.5 mL IM Left Deltoid 0.5 mL [id number] 12/12/24 23766-012-52 [employer] VIS Given Date VIS Provided VIS Publication Date 03/31/24 Single Vaccine 21 Eligibility Eligibility Date Funding Source Not [facility] Eligible 03/31/24 Private Coding Level of Care Code Est Pt Level 4 (02856) Diagnoses Community acquired bacterial pneumonia J15.9 Seborrheic dermatitis L21.9 Mouth sores K13.79 Time Spent (min) 20 Comment Spent reviewing hospital notes and patient education. Assessment & Plan Assessment & Plan (1) Community acquired bacterial pneumonia: Code(s): J15.9 - Unspecified bacterial pneumonia Plan: Symptoms resolved. (2) Seborrheic dermatitis: Code(s): L21.9 - Seborrheic dermatitis, unspecified Plan: Ordered Ketoconazole 2% Shampoo Advised to moisturize the scalp daily. (3) Mouth sores: Code(s): K13.79 - Other lesions of oral mucosa Plan: Ordered Chlorhexidine mouth wash F/U with Dentist as scheduled. Orders: Orders Influenza [id number] Immunization Today Z23 - Encounter for immunization Medications: New ketoconazole 2% Apply 10 mL to wet scalp, lather, leave on 3 minutes, and rinse; Apply twice a day for 2 weeks. 1 appl topical BID 120 mL 1RF L21.9 - Seborrheic dermatitis, unspecified chlorhexidine gluconate 0.12% 15 mL mucous membrane BID 118 mL 0RF K13.79 - Other lesions of oral mucosa
[2024-03-31 14:00] VITALS: BP 108/72; PULSE 62; O2SAT 98; BMI 24.6
== END 2024-03-31 14:56 | disposition home or self-care (01) ==
PROVIDERS: PCP Internal Medicine; Visit Provider Nurse Practitioner Family
DX: J15.9 Unspecified bacterial pneumonia (principal); L21.9 Seborrheic dermatitis, unspecified; K13.79 Other lesions of oral mucosa; Z23 Encounter for immunization

== ENCOUNTER → 2024-03-31 13:48 | Outpatient (BNVA) | payer OTHER, SELFPAY | PROVIDERS: PCP Internal Medicine; Visit Provider Nurse Practitioner Family | DX: J15.9 Unspecified bacterial pneumonia (principal); L21.9 Seborrheic dermatitis, unspecified; K13.79 Other lesions of oral mucosa; Z23 Encounter for immunization | CPT/HCPCS: 90471; 90656; 99212 ==

== ENCOUNTER 2024-06-18 08:45 | Outpatient (REF) | payer OTHER, SELFPAY ==
[2024-06-18 08:57] LABS: MANUAL DIFF FLAG NO
[2024-06-18 09:25] LABS: Basophils Absolute Auto 0.1 X10*3/uL (0.0-0.2); Eosinophils Absolute Auto 0.9 X10*3/uL (0.0-0.4); Eosinophils Percent Auto 10.7 % (0-4); Hematocrit 46.8 % (42.0-52.0); Hemoglobin 16.2 g/dl (14.0-18.0); Imm Gran Abs Auto 0.03 X10*3/uL (0.00-0.03); Imm Gran Pct Auto 0.4 % (0.0-0.4); Lymphocytes Absolute Auto 0.8 X10*3/uL (1.2-4.9); Lymphocytes Percent Auto 9.5 % (20-40); Mean Corpuscular HGB Conc 34.6 g/dl (31.0-36.0); Mean Corpuscular Hemoglobin 28.9 pg (27.0-33.0); Mean Corpuscular Volume 83.6 fL (80.0-98.0); Mean Platelet Volume 9.4 fL (9.4-12.4); Monocytes Absolute Auto 0.9 X10*3/uL (0.1-1.2); Monocytes Percent Auto 10.7 % (2-11); Neutrophils Absolute Auto 5.4 x10*3/uL (2.0-8.3); Neutrophils Percent Auto 67.7 % (45-73); Platelet Count 206 X10*3/uL (160-400); Red Cell Distribution Width 12.5 % (11.0-16.0)
[2024-06-18 09:25] LABS: Appearance Urine Clear; Color Urine Yellow; Glucose Urine UA Negative (Negative); Leukocyte Esterase Urine Negative (Negative); Nitrite Urine Negative (Negative); UMIC TRIGGER UACC YES; Urine Blood Negative (Negative); Urine Ketones Trace mg/dL (Negative); Urine Protein 100 (2+) mg/dL (Neg-Trace)
[2024-06-18 09:30] LABS: Bacteria Urine None Seen (None Seen); Hyaline Casts Urine 0-2 /LPF (0-2); RBC Urine 0-2 /HPF (0-2); Squamous Epithelial Cell Urine 0-2 /HPF (0-2); WBC Urine 0-5 /HPF (0-5)
[2024-06-18 09:44] LABS: Alanine Aminotransferase 22 U/L (0-40); Albumin Level 4.2 g/dL (3.5-5.0); Alkaline Phosphatase 98 U/L (39-117); Anion Gap 14 (12-20); Aspartate Amino Transferase 19 U/L (5-37); Bilirubin Total 0.7 mg/dL (0.0-1.0); Blood Urea Nitrogen 8 mg/dL (9-16); Calcium 9.2 mg/dL (8.4-10.2); Carbon Dioxide 25 mmol/L (22-29); Chloride 108 mmol/L (96-108); Cholesterol 172 mg/dL (<200); Estimated Glomerular Filt Rate > 60; Glucose Fasting 91 mg/dL (60-99); HDL Cholesterol 36 mg/dL (>40); LDL Cholesterol Calculated 80 mg/dL (<100); Potassium 3.5 mmol/L (3.3-5.1); Sodium 143 mmol/L (135-145); Total Protein 7.3 g/dL (6.5-8.0); Triglycerides 281 mg/dL (<150)
== END 2024-06-18 08:46 | disposition home or self-care (01) ==
LOC: HO.LAB 08:45
PROVIDERS: PCP Internal Medicine; Visit Provider Internal Medicine
DX: E78.00 Pure hypercholesterolemia, unspecified (principal); D64.9 Anemia, unspecified
CPT/HCPCS: 36415; 80053; 80061; 81001; 85025

== ENCOUNTER 2024-06-20 16:10 | Outpatient (AMB) | payer OTHER, SELFPAY ==
[2024-06-20 16:17] VITALS: BP 132/80; PULSE 91; O2SAT 98
--- NOTE | 2024-06-20 16:17 | MHC.PC.OV ---
Vital Signs 06/20/24 16:17 Height 5 ft 5 in BMI Reason not done Patient refused/unable BP 132/80 Blood Pressure Location Lt brachial Position Sitting Pulse 91 Pulse Source Pulse Oximeter Pulse Oximetry (%) 98 Oxygen Delivery Method Room Air Intake Visit Reasons: 4mth f/u Allergies No Known Allergies Allergy (Verified 06/20/24 17:03) Medication List - Last Reconciled 06/20/24 by Raman Torrez MD amlodipine 10 mg PO DAILY atorvastatin 10 mg PO BEDTIME chlorhexidine gluconate 0.12% 15 mL mucous membrane BID cholecalciferol (vitamin D3) 50 mcg PO DAILY 90 days clonidine HCl 0.1 mg PO BID 90 days ketoconazole 2% 1 appl topical BID [LIGHTWEIGHT FOLDING WHEELCHAIR (medium) As directed] losartan 100 mg PO DAILY 90 days omeprazole 20 mg PO BID quetiapine 25 mg PO BEDTIME [ROLLATOR with SEAT As directed] valproic acid 500 mg (2 x 250 mg) PO QAM vitamin B complex 1 cap PO DAILY Tobacco use date assessed: 02/17/24 Dental Screening Dental Screen Date: 02/17/24 Did you have a dental visit in the last 12 months?: Yes Did you have a dental problem in the last 6 months where you did not have access to dental care?: No Was dental information given to patient?: Patient has dentist HPI [facility] f[facility] HPI Details Patient comes in today for his follow up visit He has reportedly been experiencing increased cough / congestion since after he was supposedly exposed to some perfume scent a couple of days ago His states that patient is quite sensitive to some particular perfumes and these tend to trigger his respiratory symptoms when he is exposed to them His states that she has been giving patient some OTC Zyrtec to take over the past couple of days with some relief of his symptoms Patient denies any fever or sore throat; he denies any headaches or dizziness Denies any chest pains, no increased shortness of breath No nausea/vomiting, no abdominal pain No change in bowel habits noted His as that patient has been experiencing some bouts of depression and moodiness again recently States that he has been diagnosed in the past with mood disorder related to his CVA and is currently still on his Quetiapine but she is not sure if that is enough for him at this time He had his follow up labs done a couple of days ago - to discuss his results [facility] Medical History (Updated 06/21/24 @ 07:06 by Raman Torrez MD) Esophageal ulcer Colon cancer screening Expressive aphasia History of stroke Spastic hemiparesis affecting dominant side Vitamin D deficiency Iron deficiency anemia Right hemiplegia Cerebrovascular accident (CVA) 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) Pure hypercholesterolemia Benign essential hypertension CVA (cerebral vascular accident) Surgical History History of esophagogastroduodenoscopy (EGD) Family History Other Family history non-contributory Social History Housing: House Alcohol intake: former Patient Tobacco Use Status: Never used Tobacco e-Cigarette/Vaping Use: Never Used Second Hand Smoke Exposure: No service: No Current occupational status: disabled Cognitive needs: Yes (wheelchair) Hearing needs: No Vision needs: No Questionnaire PHQ-9 Over the last 2 weeks, how often have you been bothered by any of the following problems? 1. Little interest or pleasure in doing things: not at all 2. Feeling down, depressed, or hopeless: not at all 3. Trouble falling or staying asleep, or sleeping too much: not at all 4. Feeling tired or having little energy: not at all 5. Poor appetite or overeating: not at all 6. Feeling bad about yourself - or that you are a failure or have let yourself or your family down: not at all 7. Trouble concentrating on things, such as reading the newspaper or watching television: not at all 8. Moving or speaking so slowly that other people could have noticed. Or the opposite - being so fidgety or restless that you have been moving around a lot more than usual: not at all 9. Thoughts that you would be better off or of hurting yourself in some way: not at all Total score: 0 Depression Screening Interpretation: Negative Depression Screening Done: Yes 67551 - PHQ-9 Billing: Yes Source: Developed by Drs. Feng Alcaraz, Rubia Galvan, Sulaiman Daniel and colleagues, with an educational rachele from [employer]. Thrive Questionnaire Date Thrive assessed: 06/20/24 I am a: Patient What is your living situation today?: I have a steady place to live Within the past 12 months, did the food you bought not last and you didn't have the money to get more?: Never true Within the past 12 months, did you worry whether your food would run out before you got money to buy more?: Never true Do you have trouble paying for medicines?: No Do you have trouble getting transportation to medical appointments?: No Do you have trouble paying your heating and electricity bill?: No Do you have trouble taking care of your child, family member or friend?: No Do you have trouble with day-to-day activities such as bathing, preparing meals, shopping, managing finances, etc.?: No Are you currently unemployed and looking for a job?: No Are you interested in more education?: No Please select the resources that you would like help with: None Currently or been in a relationship where the following occur: No concerns reported THRIVE Score: 0 AUDIT C Alcohol Use Questionnaire (AUDIT-C) 1. How often do you have a drink containing alcohol?: Monthly or less 2. How many drinks containing alcohol do you have on a typical day when you are drinking?: 1 or 2 3. How often do you have six or more drinks on one occasion?: Never Total Score: 1 Score Reviewed/Action Taken: Yes JAREK-7 AMB Questionnaire JAREK-7 Date JAREK - 7 assessed: 06/20/24 Feeling nervous, anxious, or on edge: 0 = Not at all Not being able to stop or control worryin = Not at all Worrying too much about different things: 0 = Not at all Trouble relaxin = Not at all Being so restless that it is hard to sit still: 0 = Not at all Becoming easily annoyed or irritable: 0 = Not at all Feeling afraid as if something awful might happen: 0 = Not at all Total JAREK-7 score (0-4 normal; 5-9 mild; 10-14 moderate; 15-21 severe): 0 Source: Developed by Drs. Feng Alcaraz, Sulaiman May and colleagues, with an educational rachele from [employer]. Review of Systems Const Denies chills, Denies fatigue, Denies fever(s) and Denies headache(s) ENT Reports dysphagia ((+) some improvement with speech & swallow therapy and Rx), Denies dizziness, Denies otalgia, Denies headache(s), Reports nasal congestion, Denies neck pain, Denies odynophagia and Denies sore throat Card Denies chest pain, Denies palpitations and Denies dyspnea Resp Denies chest congestion, Reports cough (recurrent lately; coughs up minimal clear to whitish phlegm), Denies dyspnea and Denies wheezing GI Denies abdominal pain, Denies constipation, Reports dysphagia ((+) some improvement with speech & swallow therapy and Rx), Denies dyspepsia, Denies heartburn, Denies diarrhea, Denies nausea, Denies odynophagia and Denies vomiting Denies dysuria, Denies nocturia and Denies urinary frequency Musc Denies back pain and Denies neck pain Skin/Breast Denies rash Neuro Details: (+) right-sided weakness (S/P CVA) Denies dizziness and Denies headache(s) Psych Reports depression (increasing, per ) Endo Denies fatigue and Denies palpitations Aller/Immun Denies wheezing Physical exam (Primary Care) Vital Signs: Last Vital Signs Pulse 91 06/20/24 16:17 BP 132/80 06/20/24 16:17 Pulse Ox 98 06/20/24 16:17 Oxygen Delivery Method Room Air 06/20/24 16:17 Tobacco/Smoking Status: Tobacco use Status Tobacco use date assessed 02/17/24 06/20/24 16:23 Patient Tobacco Use Status Never used Tobacco 06/20/24 16:23 e-Cigarette/Vaping Use Never Used 06/20/24 16:23 PHQ-9: PHQ-9 Score PHQ-9: Total score 0 06/20/24 17:07 Depression Screening Interpretation: Negative Thrive Assessment: Date of Thrive Assessment Date Thrive assessed 06/20/24 06/20/24 16:23 Currently or been in a relationship where the following occur: No concerns reported Const Other: Information is obtained partially through patient's as he is limited in his ability to communicate due to his aphasia General: no acute distress and alert Limitations: wheelchair HENMT Ears: TM's normal bilaterally and EAC's normal Throat: Yes posterior oropharynx normal and Yes tonsils normal (no TP congestion noted) Neck Neck: Yes supple and No lymphadenopathy Thyroid: Thyroid normal Resp Auscultation: clear to auscultation bilaterally, no rales and no wheezes Cardio Rate: regular rate Rhythm: regular rhythm Heart sounds: no murmurs GI Palpation (GI): Soft to palpation and nontender Auscultation: normal bowel sounds Skin Rashes: no rashes Neuro Other: (+) right hemiparesis and (+) aphasia Extrem General: No clubbing, No cyanosis and Yes edema (1+ bipedal pitting edema noted) Results Reviewed Results Reviewed: Laboratory Tests 06/18/24 06/18/24 08:53 08:56 WBC 8.0 Hgb 16.2 Hct 46.8 Plt Count 206 Sodium 143 Potassium 3.5 Estimated GFR > 60 Fasting Glucose 91 Calcium 9.2 AST 19 ALT 22 Triglycerides 281 H Cholesterol 172 LDL Cholesterol, Calc 80 HDL Cholesterol 36 L Ur Specific [place] 1.020 Urine Protein 100 (2+) H Urine Glucose (UA) Negative Urine Blood Negative Urine Nitrite Negative Ur Leukocyte Esterase Negative Coding Level of Care Code Est Pt Level 4 (46005) Diagnoses Cerebrovascular accident (CVA), unspecified mechanism I63.9 CVA mechanism: unspecified Right hemiplegia G81.91 Ulcer of esophagus without bleeding K22.10 Esophageal ulcer bleeding: without bleeding Aspiration of food, initial encounter T17.928A Encounter type: initial encounter Benign essential hypertension I10 Pure hypercholesterolemia E78.00 Impaired fasting glucose R73.01 Renal insufficiency N28.9 Iron deficiency anemia, unspecified iron deficiency anemia type D50.9 Iron deficiency anemia type: unspecified iron deficiency Vitamin D deficiency E55.9 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 Additional Codes PHQ-9 - 14540 - PHQ-9 Billing: Yes ([id number]) Assessment & Plan Assessment & Plan (1) Cerebrovascular accident (CVA): Comment: x3 (2002, 2005 and 2008) Code(s): I63.9 - Cerebral infarction, unspecified Category: Medical Qualifiers: CVA mechanism: unspecified Qualified Code(s): I63.9 - Cerebral infarction, unspecified Plan: S/P CVA a few years ago with residual right hemiparesis and aphasia states that patient's overall mobility and gait quality have improved a lot with physical therapy in the past (2) Right hemiplegia: Code(s): G81.91 - Hemiplegia, unspecified affecting right dominant side Category: Medical Plan: Patient's overall mobility and gait quality have reportedly improved a lot with physical and occupational therapy and will continue with PT/OT as scheduled or as needed He was also referred to physiatry for further management previously when his indicated that his right-sided weakness has gotten worse and was recommended for physical therapy again (3) Esophageal ulcer: Comment: EGD done 03/2022 Code(s): K22.10 - Ulcer of esophagus without bleeding Category: Medical Qualifiers: Esophageal ulcer bleeding: without bleeding Qualified Code(s): K22.10 - Ulcer of esophagus without bleeding Plan: Esophageal biopsy done back in March 2022 revealed (+) cardiac-type mucosa with mild chronic inactive inflammation and no intestinal metaplasia seen. Lesions are polypoid, eroded and ulcerated squamous mucosa and fragment of ulcer bed but no malignancy is identified Patient reported (+) improvement of his symptoms of dysphagia and choking sensation over the next few months and he has been eating very well since, per his Continue Cimetidine 400 mg Q HS He was also started on Carafate but he disliked the taste of the medication and found it constipating and self-discontinued the medication after a while He was supposedly being scheduled for repeat EGD sometime last spring (2022) but this never occurred He was then seen by GI a few months later and was reportedly advised that since his symptoms have improved a lot, he can hold off on repeat EGD at the time and to just follow up again in 6 months unless symptoms flare up or recur He eventually underwent repeat EGD in October 2023, which revealed findings of severe esophagitis, multiple duodenal ulcers, hiatal hernia and esophageal nodules. Biopsies done showed no dysplasia and H. pylori came back negative Follow up with GI as scheduled (4) Aspiration of food: Code(s): T17.928A - Food in respiratory tract, part unspecified causing other injury, initial encounter Category: Medical Qualifiers: Encounter type: initial encounter Qualified Code(s): T17.928A - Food in respiratory tract, part unspecified causing other injury, initial encounter Plan: Modified barium swallow done last year revealed (+) martita laryngeal aspiration with thin barium and barium-coated puree He has been referred for swallowing evaluation and training/therapy, which he completed States that his issues with swallowing has improved a lot with swallow therapy Repeat modified barium swallow revealed trace laryngeal penetration was seen with puree consistency barium and aspiration was observed with thin barium He was seen by speech therapy for further recommendations and was recommended a pureed diet (National Dysphagia Diet Level I) with nectar thick liquids. He will continue to require 1:1 feeding and close monitoring given his risk of aspiration Patient and his were also reportedly educated on the appropriate feeding strategies to help maximize safety (5) Benign essential hypertension: Code(s): I10 - Essential (primary) hypertension Category: Medical Plan: Reinforced low sodium diet - goal is systolic BP of at least 130 mm or less Continue Amlodipine 10 mg QD, Losartan 100 mg QD and Clonidine 0.1 mg BID (6) Pure hypercholesterolemia: Code(s): E78.00 - Pure hypercholesterolemia, unspecified Category: Medical Plan: Results of his labs done a couple of days ago reviewed and discussed with patient and his - they are cautioned that patient's serum triglyceride level has increased again significantly from previous; his LDL and total cholesterol were within acceptable range Reinforced low-cholesterol diet Continue Atorvastatin 10 mg QD for now Will have him recheck his labs and fasting lipids again in 4 months for follow up (7) Impaired fasting glucose: Code(s): R73.01 - Impaired fasting glucose Category: Medical Plan: Patient's FBS was normal at 91 mg/dl on his labs done a couple of daysa ago His HgbA1c was again normal at 5.2% when checked previously; in-office HgbA1c was also normal at 5.1% a few months ago Reinforced low calorie/low carb diet Will continue to monitor his FBS regularly (8) Renal insufficiency: Code(s): N28.9 - Disorder of kidney and ureter, unspecified Category: Medical Plan: Patient's serum creatinine and GFR have both declined on his previous labs to early stage 3 CKD numbers but his current bunbers have improved again back to normal He and his have been reminded to maintain adequate hydration Will continue to monitor his labs and renal function regularly and recheck them in 4 months for follow up (9) Iron deficiency anemia: Code(s): D50.9 - Iron deficiency anemia, unspecified Category: Medical Qualifiers: Iron deficiency anemia type: unspecified iron deficiency Qualified Code(s): D50.9 - Iron deficiency anemia, unspecified Plan: Corrected Will continue to monitor his CBC periodically (10) Vitamin D deficiency: Code(s): E55.9 - Vitamin D deficiency, unspecified Category: Medical Plan: Continue Vitamin D3 2000 units QD (11) 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): Code(s): I63.9 - Cerebral infarction, unspecified; F06.30 - Mood disorder due to known physiological condition, unspecified Category: Medical Plan: Continue Valproic Acid 500 mg Q AM and Quetiapine?25 mg Q HS Due to his increasing moodiness, per his , will refer him to Psychiatry for further evaluation and management Plan Follow up in 4 months Orders: Orders Hemoglobin A1c 4 Months R73.01 - Impaired fasting glucose Lipid Panel 4 Months E78.00 - Pure hypercholesterolemia, unspecified Comprehensive [place]. Panel Fast 4 Months E78.00 - Pure hypercholesterolemia, unspecified Complete Blood Count Auto Diff 4 Months D64.9 - Anemia, unspecified Referrals Psychiatry Outpatient Consultation Service F06.30 - Mood disorder due to known physiological condition, unspecified, I63.9 - Cerebral infarction, unspecified
== END 2024-06-20 17:20 | disposition home or self-care (01) ==
PROVIDERS: PCP Internal Medicine; Visit Provider Internal Medicine
DX: I63.9 Cerebral infarction, unspecified (principal); G81.91 Hemiplegia, unspecified affecting right dominant side; K22.10 Ulcer of esophagus without bleeding; T17.928A Food in respiratory tract, part unspecified causing other injury, initial encounter; I10 Essential (primary) hypertension; E78.00 Pure hypercholesterolemia, unspecified; R73.01 Impaired fasting glucose; N28.9 Disorder of kidney and ureter, unspecified; D50.9 Iron deficiency anemia, unspecified; E55.9 Vitamin D deficiency, unspecified; F06.30 Mood disorder due to known physiological condition, unspecified

== ENCOUNTER → 2024-06-20 16:10 | Outpatient (BNVA) | payer OTHER, SELFPAY | PROVIDERS: PCP Internal Medicine; Visit Provider Internal Medicine | DX: I63.9 Cerebral infarction, unspecified (principal); F06.30 Mood disorder due to known physiological condition, unspecified; G81.91 Hemiplegia, unspecified affecting right dominant side; K22.10 Ulcer of esophagus without bleeding; I10 Essential (primary) hypertension; E78.00 Pure hypercholesterolemia, unspecified; R73.01 Impaired fasting glucose; E55.9 Vitamin D deficiency, unspecified; N28.9 Disorder of kidney and ureter, unspecified; D50.9 Iron deficiency anemia, unspecified | CPT/HCPCS: 96127; 99212 ==

== ENCOUNTER 2024-06-22 06:28 | Observation (INO) | payer OTHER, SELFPAY ==
[2024-06-22] VITALS (11 sets, daily range): BP systolic 108–136; BP diastolic 68–83; PULSE 77–100; RESP 16–26; TEMP 36.4–37.8; O2SAT 90–96; BMI 25.1; BMI 23.0
--- NOTE | ~2024-06-22 | XR_ITS ---
CLINICAL HISTORY: Dyspnea 2 view chest x-ray Comparison: CT/SR - CT CHEST WO IV CON - 03/17/24 05:52 EDT CR/SR - XR CHEST 1V - 03/17/24 05:01 EDT Findings: Lungs are well inflated. Cardiac silhouette is at the upper limits of normal for size with borderline left ventricular prominence. Central interstitial markings are mildly prominent. No focal areas of consolidation. No pleural effusion. IMPRESSION: Borderline enlargement of the cardiac silhouette with central interstitial prominence. This can be seen with edema or bronchitis/bronchiolitis. This document has been electronically signed by: Zafar Vitale MD on 06/22/2024 08:02:43
[2024-06-22 07:03] LABS: MANUAL DIFF FLAG NO
[2024-06-22 07:05] LABS: Basophils Absolute Auto 0.1 X10*3/uL (0.0-0.2); Basophils Percent Auto 0.8 % (0-2); Eosinophils Absolute Auto 0.6 X10*3/uL (0.0-0.4); Eosinophils Percent Auto 10.3 % (0-4); Hemoglobin 15.3 g/dl (14.0-18.0); Imm Gran Abs Auto 0.01 X10*3/uL (0.00-0.03); Imm Gran Pct Auto 0.2 % (0.0-0.4); Lymphocytes Absolute Auto 0.8 X10*3/uL (1.2-4.9); Lymphocytes Percent Auto 13.4 % (20-40); Mean Corpuscular HGB Conc 34.8 g/dl (31.0-36.0); Mean Corpuscular Hemoglobin 29.3 pg (27.0-33.0); Mean Corpuscular Volume 84.3 fL (80.0-98.0); Mean Platelet Volume 9.3 fL (9.4-12.4); Monocytes Absolute Auto 0.9 X10*3/uL (0.1-1.2); Monocytes Percent Auto 15.4 % (2-11); Neutrophils Absolute Auto 3.7 x10*3/uL (2.0-8.3); Neutrophils Percent Auto 59.9 % (45-73); Platelet Count 160 X10*3/uL (160-400); Red Blood Count 5.22 X10*6/uL (4.60-5.80); Red Cell Distribution Width 12.5 % (11.0-16.0); White Blood Count 6.1 X10*3/uL (4.8-10.8)
--- NOTE | 2024-06-22 07:21 | ED.URI ---
HPI - URI/Sore Throat General Chief Complaint: Upper Respiratory Symptoms Stated Complaint: fever, flu like Time Seen by Provider: 06/22/24 07:08 Source: family Mode of arrival: ambulatory History of Present Illness ED Provider: Hank TERRELL Narrative: 58-year-old male, barely walks at baseline due to prior stroke comes in with increasing shortness of breath, unable to speak in full sentences last night. Related Data Home Medications ?Medication ?Instructions ?Recorded ?Confirmed vitamin B complex 1 cap PO DAILY 04/29/22 06/20/24 Previous Rx's ?Medication ?Instructions ?Recorded ROLLATOR with SEAT #1 ea 06/17/21 LIGHTWEIGHT FOLDING WHEELCHAIR #1 ea 05/29/23 (medium) amlodipine 10 mg tablet 10 mg PO DAILY #90 tabs 10/05/23 atorvastatin 10 mg tablet 10 mg PO BEDTIME #90 tabs 10/05/23 cholecalciferol (vitamin D3) 50 50 mcg PO DAILY 90 days #90 caps 10/05/23 mcg (2,000 unit) capsule clonidine HCl 0.1 mg tablet 0.1 mg PO BID 90 days #180 tabs 10/05/23 losartan 100 mg tablet 100 mg PO DAILY 90 days #90 tabs 10/05/23 ketoconazole 2 % shampoo 1 appl topical BID #120 mL 03/31/24 valproic acid 250 mg capsule 500 mg (2 x 250 mg) PO QAM #180 04/04/24 caps omeprazole 20 mg capsule,delayed 20 mg PO BID #180 caps 04/28/24 release quetiapine 25 mg tablet 25 mg PO BEDTIME #90 tabs 04/28/24 chlorhexidine gluconate 0.12 % 15 ml mucous membrane BID #118 mL 05/18/24 mouthwash Allergies Allergy/AdvReac Type Severity Reaction Status Date / Time No Known Allergies Allergy Verified 06/22/24 06:34 Review of Systems Review of Systems: Pertinent positives and negatives as stated in HPI PMFSH Past Medical History Source: nursing notes reviewed Medical History Esophageal ulcer Colon cancer screening Expressive aphasia History of stroke Spastic hemiparesis affecting dominant side Vitamin D deficiency Iron deficiency anemia Right hemiplegia Cerebrovascular accident (CVA) 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) Pure hypercholesterolemia Benign essential hypertension CVA (cerebral vascular accident) Surgical History History of esophagogastroduodenoscopy (EGD) Family History Family History Other Family history non-contributory Social History Social History Housing: House Alcohol intake: former Patient Tobacco Use Status: Never used Tobacco Smoked in Last 30 Days: No e-Cigarette/Vaping Use: Never Used Second Hand Smoke Exposure: No Advance Directives: No Advance Directives Information Provided: Yes Do you have a plan to hurt others: No Plan service: No Current occupational status: disabled Cognitive needs: Yes (wheelchair) Hearing needs: No Vision needs: No Physical Exam Vital Signs: Vital Signs: Last Vital Signs Temp 98.6 F 06/22/24 07:31 Pulse 77 06/22/24 07:31 Resp 22 H 06/22/24 07:31 BP 126/83 06/22/24 07:31 Pulse Ox 95 06/22/24 07:31 O2 Del Method Nasal Cannula 06/22/24 07:31 O2 Flow Rate 2 06/22/24 07:31 BMI result Body Mass Index 25.1 VITAL SIGNS: Reviewed. GENERAL: Well developed, well nourished, in no acute distress. HEAD: Normocephalic/atraumatic EYES: PERRLA, EOMI EARS: Ext canals without abnormality NOSE: Nares patent bilateral OROPHARYNX: no oral lesions noted, posterior pharynx clear NECK: Supple, no adenopathy LUNGS: No tachypnea but noted to have decreased breath sounds bilaterally. SpO2<88> placed on nasal cannula with good response CARDIOVASCULAR: Regular rate and rhythm without noted murmurs ABDOMEN: Soft, non-tender, non-distended with bowel sounds. MUSCULOSKELETAL: No tenderness, deformities, or effusions noted on gross inspection. EXTREMITIES: No cyanosis, clubbing or edema. SKIN: Inspection of the skin reveals no rashes NEUROLOGIC: Alert and oriented x 3. Strength and sensation to light touch were grossly intact x 2, bilateral lower extremities with coordinated movement but strength 3/5 and symmetric. Medications Administered Discontinued Medications Generic Name Dose Route Start Last Admin Trade Name Freq PRN Reason Stop Dose Admin Acetaminophen 650 mg 06/22/24 07:13 06/22/24 07:34 Acetaminophen 325 Mg Tablet PO 06/22/24 07:14 650 mg ONCE ONE Administration Benzonatate 200 mg 06/22/24 07:14 06/22/24 07:34 Benzonatate 100 Mg Capsule PO 06/22/24 07:15 200 mg ONCE ONE Administration Ibuprofen 400 mg 06/22/24 07:13 06/22/24 07:34 Ibuprofen 400 Mg Tablet PO 06/22/24 07:14 400 mg ONCE ONE Administration Medical Decision Making Medical Decision Making MDM Narrative: 58-year-old male with history and clinical presentation, DD DX: Pneumonia, viral illness, no history of cigarette smoking/asthma/COPD. 0738: I reviewed and interpreted all investigations and there is no infectious leukocytosis, anemia or thrombocytopenia. There is no demonstrate MARY/electrolyte or liver enzyme derangements. Viral testing is positive for RSV. My interpretation of the chest x-ray is that there are patchy findings consistent with viral infection, no distinct infiltrate and no leukocytosis. Any SIRS response/criteria are strictly related to viral in nature and patient does not meet criteria for antibiotics at this time. Reached out to inpatient hospitalist for admission due to patient's new oxygen requirement and hypoxia associated with current condition. Differential Diagnosis Differential Diagnoses: The differential diagnosis associated with the presentation includes See above Admission/Observation Consideration of admission/observation: Escalation of care including admission/observation considered Secondary to patient's requirement for oxygen he will need to be admitted he has no underlying respiratory conditions that better illustrate is new oxygen requirement. Consult Healthcare Provider Management of the patient was discussed with: Hospitalist Lab Data [facility] Lab Attestation statement: I reviewed the patient's lab results. See above 06/22/24 06:59 06/22/24 06:59 Labs: Lab Results 06/22/24 06/22/24 Range/Units 06:48 06:59 WBC 6.1 (4.8-10.8) X10*3/uL RBC 5.22 (4.60-5.80) X10*6/uL Hgb 15.3 (14.0-18.0) g/dl Hct 44.0 (42.0-52.0) % MCV 84.3 (80.0-98.0) fL MCH 29.3 (27.0-33.0) pg MCHC 34.8 (31.0-36.0) g/dl RDW 12.5 (11.0-16.0) % Plt Count 160 (160-400) X10*3/uL MPV 9.3 L (9.4-12.4) fL Immature Gran % (Auto) 0.2 (0.0-0.4) % Neut % (Auto) 59.9 (45-73) % Lymph % (Auto) 13.4 L (20-40) % [place] % (Auto) 15.4 H (2-11) % Eos % (Auto) 10.3 H (0-4) % Baso % (Auto) 0.8 (0-2) % Lymph # (Auto) 0.8 L (1.2-4.9) X10*3/uL [place] # (Auto) 0.9 (0.1-1.2) X10*3/uL Eos # (Auto) 0.6 H (0.0-0.4) X10*3/uL Baso # (Auto) 0.1 (0.0-0.2) X10*3/uL Abs Immat Gran (auto) 0.01 (0.00-0.03) X10*3/uL Absolute Neuts (auto) 3.7 (2.0-8.3) x10*3/uL Absolute Nucleated RBC 0.000 (0.0-0.012) X10*3/uL Nucleated RBC % (auto) 0.0 (0.0-0.2) /100WBC Sodium 140 (135-145) mmol/L Potassium 3.5 (3.3-5.1) mmol/L Chloride 110 H (96-108) mmol/L Carbon Dioxide 22 (22-29) mmol/L Anion Gap 12 (12-20) BUN 10 (9-16) mg/dL Creatinine 1.30 (0.5-1.4) mg/dL Estim Creat Clear Calc 55.2 Estimated GFR 57 Random Glucose 104 (60-115) mg/dL Calcium 8.7 (8.4-10.2) mg/dL Total Bilirubin 0.6 (0.0-1.0) mg/dL AST 23 (5-37) U/L ALT 23 (0-40) U/L Total Protein 7.2 (6.5-8.0) g/dL Albumin 4.0 (3.5-5.0) g/dL Influenza Type A (PCR) NEGATIVE (Negative) Influenza Type B (PCR) NEGATIVE (Negative) RSV RNA Qual (PCR) POSITIVE A (Negative) SARS-CoV-2 RNA (RT-PCR) NEGATIVE (Negative) Radiology Impression Discussion of test interpretation with radiology: I have reviewed the radiologist's reading. Radiologist Impression: See above External Record Review External record reviewed: Inpatient record, Prior outpatient labs and Prior outpatient radiology Chronic Conditions Patient?s care impacted by: Diabetes and Other CVA Discharge Plan Discharge Clinical Impression: Acute hypoxemic respiratory failure, Respiratory syncytial virus (RSV) Patient Disposition: Admitted As Inpatient Prescriptions: No Action valproic acid 250 mg capsule 500 mg PO QAM Qty: 180 0RF omeprazole 20 mg capsule,delayed release(DR/EC) 20 mg PO BID Qty: 180 2RF quetiapine 25 mg tablet 25 mg PO BEDTIME Qty: 90 1RF chlorhexidine gluconate 0.12 % mouthwash 15 ml mucous membrane BID Qty: 118 1RF (DME) ROLLATOR with SEAT See Rx Instructions .Route .MEDSUPPLY Qty: 1 0RF Rx Instructions: As directed (DME) LIGHTWEIGHT FOLDING WHEELCHAIR (medium) See Rx Instructions .Route .MEDSUPPLY Qty: 1 0RF Rx Instructions: As directed amlodipine 10 mg tablet 10 mg PO DAILY Qty: 90 1RF cholecalciferol (vitamin D3) 50 mcg (2,000 unit) capsule 50 mcg PO DAILY 90 Days Qty: 90 3RF atorvastatin 10 mg tablet 10 mg PO BEDTIME Qty: 90 1RF losartan 100 mg tablet 100 mg PO DAILY 90 Days Qty: 90 3RF clonidine HCl 0.1 mg tablet 0.1 mg PO BID 90 Days Qty: 180 1RF vitamin B complex Capsule 1 cap PO DAILY ketoconazole 2 % shampoo 1 appl topical BID Qty: 120 1RF Rx Instructions: Apply 10 mL to wet scalp, lather, leave on 3 minutes, and rinse; Apply twice a day for 2 weeks. Print Language: Arabic
[2024-06-22 07:29] LABS: Influenza A PCR NEGATIVE (Negative); Influenza B PCR NEGATIVE (Negative); Resp Syncy Virus RNA Qual PCR POSITIVE (Negative); SARS COV2 PCR INHOUSE NEGATIVE (Negative)
[2024-06-22 07:33] LABS: Alanine Aminotransferase 23 U/L (0-40); Anion Gap 12 (12-20); Aspartate Amino Transferase 23 U/L (5-37); Bilirubin Total 0.6 mg/dL (0.0-1.0); Blood Urea Nitrogen 10 mg/dL (9-16); Calcium 8.7 mg/dL (8.4-10.2); Carbon Dioxide 22 mmol/L (22-29); Chloride 110 mmol/L (96-108); Creatinine Clr Calc Pharmacy 55.2; Estimated Glomerular Filt Rate 57; Glucose Random 104 mg/dL (60-115); Potassium 3.5 mmol/L (3.3-5.1); Sodium 140 mmol/L (135-145); Total Protein 7.2 g/dL (6.5-8.0)
[2024-06-22] MEDS: Ibuprofen 400 MG TABLET PO (07:34)
[2024-06-22] MEDS: Acetaminophen 325 MG TABLET 650 MG PO (07:34)
[2024-06-22] MEDS: Benzonatate 100 MG CAPSULE 200 MG PO (07:34)
[2024-06-22 07:38] LABS: Alkaline Phosphatase 95 U/L (39-117)
[2024-06-22] MEDS: Albuterol Sulfate (0.083%) 2.5 MG/3 ML VIAL.NEB 5 MG INHALE (08:56)
--- NOTE | 2024-06-22 09:43 | P.HPHOSP_ITS ---
History of Present Illness Date of Service: 06/22/24 Chief Complaint: SOB A 58 yeats old male with PMH of spastic Hemiparesis, PUD, dysphagia, CVA, HTN among other who is presenting from home with worsening SOB for the last 2 days. The patient is almost non-verbal and was unable to provide any meaningful history. discussed with family and ED provider. He was complaining cold and wheezy with increase difficulties breathing and weak. No chest pain, palpitations, nausea, vomiting, diarrhea or urinary symptoms. in ED he was found to have hypoxia of 80s at time of presentation. CXR showing non-specefic changes and tested positive for RSV. Will be admitted for further management. Review of Systems 2 Review of Systems: Yes Unobtainable due to mental condition PMFSH Medical History Esophageal ulcer Colon cancer screening Expressive aphasia History of stroke Spastic hemiparesis affecting dominant side Vitamin D deficiency Iron deficiency anemia Right hemiplegia Cerebrovascular accident (CVA) 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) Pure hypercholesterolemia Benign essential hypertension CVA (cerebral vascular accident) Family History Other Family history non-contributory Surgical History History of esophagogastroduodenoscopy (EGD) Social History Housing: House Alcohol intake: former Patient Tobacco Use Status: Never used Tobacco Smoked in Last 30 Days: No e-Cigarette/Vaping Use: Never Used Second Hand Smoke Exposure: No Advance Directives: No Advance Directives Information Provided: Yes Do you have a plan to hurt others: No Plan service: No Current occupational status: disabled Cognitive needs: Yes (wheelchair) Hearing needs: No Vision needs: No Meds Allergies Allergy/AdvReac Type Severity Reaction Status Date / Time No Known Allergies Allergy Verified 06/22/24 06:34 Active Medications: Current Medications Albuterol Sulfate (Albuterol Sulfate (0.083%) 2.5 Mg/3 Ml Vial.Neb) 2.5 mg INHALE Q4H PRN PRN Reason: Shortness of Breath/Wheezing Albuterol/Ipratropium (Albuterol/Iprat 2.5/0.5mg 3 Ml Ampul.Neb) 3 ml INHALE RQ6H WHILE AWAKE [facility] Methylprednisolone Sodium Succinate (Methylprednisolone Sod Succ 40 Mg/Ml Vial) 40 mg IVPUSH Q24H [facility] Home Medications ?Medication ?Instructions ?Recorded ?Confirmed ?Last Taken ?Type vitamin B complex 1 cap PO DAILY 04/29/22 06/22/24 06/21/24 History omeprazole 20 mg capsule,delayed 20 mg PO BID@0630,1630 06/22/24 06/22/24 06/21/24 History release valproic acid 250 mg capsule 500 mg PO DAILY 06/22/24 06/22/24 06/21/24 History Physical Exam 2 Vital Signs and Narrative: Vital Signs: Last Vital Signs Temp 98.6 F 06/22/24 07:31 Pulse 79 06/22/24 08:57 Resp 26 H 06/22/24 08:57 BP 126/83 06/22/24 07:31 Pulse Ox 95 06/22/24 07:31 O2 Del Method Nasal Cannula 06/22/24 07:31 O2 Flow Rate 2 06/22/24 07:31 BMI result Body Mass Index 25.1 Const: Other: Constitutional : Awake, not in distress Neck : Normal inspection, Supple Cardiovascular : RRR, no JVP, no lower extremity edema Respiratory : decreased bilateral air entry, no crackles, bilateral wheezes , On O2 supplement Gastrointestinal: soft, lax, Normal bowel sounds, Non tender Skin : Warm, Dry Neurological : Alert & interactive, right sided hemiparesis, non verbal Results Labs 06/22/24 06:59 06/22/24 06:59 Labs: Laboratory Results - last 24 hr 06/22/24 06/22/24 06/22/24 06:48 06:59 07:42 MCV 84.3 MCH 29.3 MCHC 34.8 RDW 12.5 Plt Count 160 MPV 9.3 L Immature Gran % (Auto) 0.2 Neut % (Auto) 59.9 Lymph % (Auto) 13.4 L [place] % (Auto) 15.4 H Eos % (Auto) 10.3 H Baso % (Auto) 0.8 Lymph # (Auto) 0.8 L [place] # (Auto) 0.9 Eos # (Auto) 0.6 H Baso # (Auto) 0.1 Abs Immat Gran (auto) 0.01 Absolute Neuts (auto) 3.7 Absolute Nucleated RBC 0.000 Nucleated RBC % (auto) 0.0 Anion Gap 12 Estim Creat Clear Calc 55.2 Estimated GFR 57 Random Glucose 104 Lactic Acid 1.0 Calcium 8.7 Total Bilirubin 0.6 AST 23 ALT 23 Alkaline Phosphatase 95 Total Protein 7.2 Albumin 4.0 Influenza Type A (PCR) NEGATIVE Influenza Type B (PCR) NEGATIVE RSV RNA Qual (PCR) POSITIVE A SARS-CoV-2 RNA (RT-PCR) NEGATIVE Assessment and Plan (1) Respiratory syncytial virus (RSV): Status: Acute (2) Acute hypoxemic respiratory failure: Status: Acute Plan A 58 yeats old male with PMH of spastic Hemiparesis, PUD, dysphagia, CVA, HTN among other who is presenting from home with worsening SOB for the last 2 days. Acute hypoxia 2/2 RSV infection with acute bronchiolitis CXR as reported Steroids Nebulizers supportive measures hold on Abx Wean O2 down as tolerated Dysphadia modified diet HTN Amlodipine, Clonidine , Losartan Mood disorder Valprioc acid, Seroquel DVT PPx Lovenox Quality Stroke Does the patient have a stroke diagnosis?: No VTE Prior VTE?: No VTE Risk Level:: Medical - moderate - high VTE Device Contraindication: Treatment Not Indicated VTE Drug Contraindication: N/A - Med Ordered
[2024-06-22] MEDS: methylPREDNISolone Sod Succ 40 MG/ML VIAL IVPUSH ×2 (10:06→22:16)
[2024-06-22] MEDS: Enoxaparin Sodium 40 MG/0.4 ML SYRINGE SUBCUT (10:06)
--- NOTE | 2024-06-22 10:12 | PHA.MEDREC ---
Addendum entered by Sindi Martinez RPh 06/22/24 10:14: reviewed by [facility]. Original Note: Pharmacy Consult ? Medication Reconciliation Pharmacy has completed the medication reconciliation. Spoke to patient at bedside to confirm med list. was able to name everything patient takes and they all matched claims. Patient last took his medication 05/21/25
[2024-06-22] MEDS: Valproic Acid 250 MG CAPSULE 500 MG PO (12:01)
[2024-06-22] MEDS: Omeprazole 20 MG CAPSULE.DR PO ×2 (12:01→16:06)
[2024-06-22] MEDS: Albuterol/Iprat 2.5/0.5MG 3 ML AMPUL.NEB INHALE ×2 (14:04→19:10)
[2024-06-22] MEDS: 0.9 % Sodium Chloride Flush 3 ML SYRINGE IVFLUSH ×2 (16:06→20:09)
[2024-06-22] MEDS: Chlorhexidine Gluc Oral Rinse 15 ML MOUTHWASH BUCCAL (20:09)
[2024-06-22] MEDS: cloNIDine HCL 0.1 MG TABLET PO (20:09)
[2024-06-22] MEDS: Atorvastatin Calcium 10 MG TABLET PO (20:09)
[2024-06-22] MEDS: QUEtiapine Fumarate 25 MG TABLET PO (20:09)
[2024-06-23 04:00] VITALS: BP 132/77; PULSE 70; RESP 18; TEMP 36.5; O2SAT 93
[2024-06-23] MEDS: Omeprazole 20 MG CAPSULE.DR PO (05:58)
[2024-06-23 06:28] LABS: Anion Gap 12 (12-20); Blood Urea Nitrogen 19 mg/dL (9-16); Calcium 8.9 mg/dL (8.4-10.2); Carbon Dioxide 24 mmol/L (22-29); Chloride 112 mmol/L (96-108); Creatinine Clr Calc Pharmacy 62.4; Estimated Glomerular Filt Rate > 60; Glucose Random 133 mg/dL (60-115); Potassium 4.2 mmol/L (3.3-5.1); Sodium 144 mmol/L (135-145)
[2024-06-23 07:36] VITALS: BP 120/78; PULSE 68; RESP 16; TEMP 36.6; O2SAT 94
[2024-06-23] MEDS: Albuterol/Iprat 2.5/0.5MG 3 ML AMPUL.NEB INHALE (07:42)
[2024-06-23 07:45] VITALS: PULSE 75; RESP 18; O2SAT 96
[2024-06-23] MEDS: cloNIDine HCL 0.1 MG TABLET PO (08:47)
[2024-06-23] MEDS: methylPREDNISolone Sod Succ 40 MG/ML VIAL IVPUSH (08:47)
[2024-06-23] MEDS: Enoxaparin Sodium 40 MG/0.4 ML SYRINGE SUBCUT (08:47)
[2024-06-23] MEDS: Chlorhexidine Gluc Oral Rinse 15 ML MOUTHWASH BUCCAL (08:47)
[2024-06-23] MEDS: Cholecalciferol (Vitamin D3) 25 MCG TABLET 50 MCG PO (08:48)
[2024-06-23] MEDS: Multivitamin TABLET 1 TAB PO (08:48)
[2024-06-23] MEDS: Valproic Acid 250 MG CAPSULE 500 MG PO (08:48)
[2024-06-23] MEDS: 0.9 % Sodium Chloride Flush 3 ML SYRINGE IVFLUSH (08:48)
--- NOTE | 2024-06-23 10:54 | P.DS_ITS ---
DS: Providers Provider Date of Service: 06/23/24 Date of admission: 06/22/24 09:37 Date of discharge: 06/23/24 Primary care physician: Unknown Physician DS: Diagnosis Discharge Diagnosis (1) Respiratory syncytial virus (RSV): Status: Acute (2) Acute hypoxemic respiratory failure: Status: Acute (3) Bronchiolitis due to respiratory syncytial virus (RSV): Status: Acute DS: Summary Hospital Course Hospital Course: Admission note HPI A 58 yeats old male with PMH of spastic Hemiparesis, PUD, dysphagia, CVA, HTN among other who is presenting from home with worsening SOB for the last 2 days. The patient is almost non-verbal and was unable to provide any meaningful history. discussed with family and ED provider. He was complaining cold and wheezy with increase difficulties breathing and weak. No chest pain, palpitations, nausea, vomiting, diarrhea or urinary symptoms. in ED he was found to have hypoxia of 80s at time of presentation. CXR showing non-specefic changes and tested positive for RSV. Will be admitted for further management. Hospital course The patient was admitted to the hospital for treatment of hypoxia secondary to RSV infection with acute bronchiolitis as shown on CXR and serology. Treated with IV Steroids and Nebulizers ATC and PRN with supportive measures and improvement over the course of hospital stay as he was weaned off O2 overnight, tolerated modified diet (Pureed w nectar thick liquids.). Discussed discharge plan with family which include Prednisone, Cough medicine and PRN Albuterol. Discharge plan Continue Prednisone as prescribed Cough medicine as needed Albuterol inhaler as needed for wheezing keep well hydrated Aspiration precautions. Modified diet and thickened liquids Time Attestation Discharge Coordination Time (in mins): 26 Quality: Safe Use of Opioids Does Pt have an Active Cancer Diagnosis on the Problem List?: No Quality: Stroke Does the patient have a stroke diagnosis?: No Physical Exam Vital Signs: Vital Signs: Last Vital Signs Temp 97.9 F 06/23/24 07:36 Pulse 75 06/23/24 07:45 Resp 18 06/23/24 07:45 BP 120/78 06/23/24 07:36 Pulse Ox 94 06/23/24 07:36 O2 Del Method Nasal Cannula 06/23/24 07:36 O2 Flow Rate 2 06/23/24 07:36 BMI result Body Mass Index 23.0 Const: Other: Constitutional : Awake, not in distress Neck : Normal inspection, Supple Cardiovascular : RRR, no JVP, no lower extremity edema Respiratory : improved bilateral air entry, no crackles, scattered minimal bilateral wheezes , on RA Gastrointestinal: soft, lax, Normal bowel sounds, Non tender Skin : Warm, Dry Neurological : Alert & interactive, mild right sided hemiparesis, non verbal DS: Data Data Completed and Pending Labs on day of discharge: Laboratory Results - last 24 hr 06/23/24 05:45 Hold Purple Top SEE NOTE Sodium 144 Potassium 4.2 Chloride 112 H Carbon Dioxide 24 Anion Gap 12 BUN 19 H Creatinine 1.15 Estim Creat Clear Calc 62.4 Estimated GFR > 60 Random Glucose 133 H Calcium 8.9 Preliminary micro results at discharge 06/22/24 07:46 Blood Culture - Preliminary Blood - Venous No growth after 24 hours. 06/22/24 07:43 Blood Culture - Preliminary Blood - Venous No growth after 24 hours. Discharge Plan Discharge Anticipated Discharge Date/Time: 06/23/24 10:48 Patient Disposition: Home, Self-Care Discharge Diagnosis: RSV infection bronchitis Referrals: Physician,Unknown J [Primary Care Provider] - 1 Week Discharge Medications: New dextromethorphan-guaifenesin 10-100 mg/5 mL Syrup 10 ml PO Q4H PRN (Reason: Cough) Qty: 237 0RF prednisone 20 mg tablet 40 mg PO DAILY Qty: 8 0RF albuterol sulfate 90 mcg/actuation HFA aerosol inhaler 2 puff inhalation Q6H PRN (Reason: shortness of breath or wheezing) Qty: 6.7 0RF Continued quetiapine 25 mg tablet 25 mg PO BEDTIME Qty: 90 1RF chlorhexidine gluconate 0.12 % mouthwash 15 ml mucous membrane BID Qty: 118 1RF valproic acid 250 mg capsule 500 mg PO DAILY omeprazole 20 mg capsule,delayed release(DR/EC) 20 mg PO BID@0630,1630 (DME) ROLLATOR with SEAT See Rx Instructions .Route .MEDSUPPLY Qty: 1 0RF Rx Instructions: As directed (DME) LIGHTWEIGHT FOLDING WHEELCHAIR (medium) See Rx Instructions .Route .MEDSUPPLY Qty: 1 0RF Rx Instructions: As directed amlodipine 10 mg tablet 10 mg PO DAILY Qty: 90 1RF cholecalciferol (vitamin D3) 50 mcg (2,000 unit) capsule 50 mcg PO DAILY 90 Days Qty: 90 3RF atorvastatin 10 mg tablet 10 mg PO BEDTIME Qty: 90 1RF losartan 100 mg tablet 100 mg PO DAILY 90 Days Qty: 90 3RF clonidine HCl 0.1 mg tablet 0.1 mg PO BID 90 Days Qty: 180 1RF vitamin B complex Capsule 1 cap PO DAILY ketoconazole 2 % shampoo 1 appl topical BID Qty: 120 1RF Rx Instructions: Apply 10 mL to wet scalp, lather, leave on 3 minutes, and rinse; Apply twice a day for 2 weeks. Discharge Orders: Discharge Order (Routine); Ordered 06/23/24 Ordered By: Arnaldo Rawls Diet: Advance to usual diet Activity on Discharge: As tolerated Stand Alone Forms: Patient Portal Discharge page Print Language: [place]an Care Plan Goals: Continue Prednisone as prescribed Cough medicine as needed Albuterol inhaler as needed for wheezing keep well hydrated Aspiration precautions. Modified diet and thickened liquids Health Concerns: RSV infection Bronchiolitis Plan of Treatment: Prednisone, cough medicine Assessment: as above
--- NOTE | 2024-06-23 12:29 | MHC.CM.PN ---
MANAGER RENTAL AND CM MET WITH PT AND AT BEDSIDE PT MINIMALLY VERBAL, ASSISTED WITH QUESTIONS. PT LIVES WITH AND FAMILY PT USES WC AND WALKER PCP IS DR SARMIENTO PT SIGNED HCP NAMING SPOUSE PROXY. (KHADIJAH, ) PT'S INSURANCE IS [employer] PT DC HOME VIA PRIVATE TRANSPORT. [facility] REFERRAL MADE
== END 2024-06-23 11:54 | disposition home or self-care (01) ==
LOC: HO.ED 07:52 → HO.EDOVER 09:45 → HO.S3 14:24
PROVIDERS: Admitting Provider Student in an Organized Health Care Education/Training Program; Emergency Provider Student in an Organized Health Care Education/Training Program; PCP Internal Medicine; Visit Provider Student in an Organized Health Care Education/Training Program
DX: J21.0 Acute bronchiolitis due to respiratory syncytial virus (principal); B33.8 Other specified viral diseases; J96.01 Acute respiratory failure with hypoxia; E11.9 Type 2 diabetes mellitus without complications; I10 Essential (primary) hypertension; Z86.73 Personal history of transient ischemic attack (TIA), and cerebral infarction without residual deficits
CPT/HCPCS: 0241U; 36415; 71046; 80048; 80053; 83605; 85025; 87040; 94640; 96372; 96374; 96376; 99221; 99285; J1650; J2919

== ENCOUNTER → 2024-06-22 07:25 | Outpatient (BNV) | payer OTHER, SELFPAY | PROVIDERS: Emergency Provider Student in an Organized Health Care Education/Training Program; Visit Provider Radiology Diagnostic Radiology | DX: R06.00 Dyspnea, unspecified (principal) | CPT/HCPCS: 71046 ==

== ENCOUNTER → 2024-06-22 09:37 | Outpatient (BNV) | payer OTHER, SELFPAY | PROVIDERS: Admitting Provider Student in an Organized Health Care Education/Training Program; Emergency Provider Student in an Organized Health Care Education/Training Program; Visit Provider Student in an Organized Health Care Education/Training Program | DX: B33.8 Other specified viral diseases (principal); J96.01 Acute respiratory failure with hypoxia; J21.0 Acute bronchiolitis due to respiratory syncytial virus | CPT/HCPCS: 99222; 99238 ==

== ENCOUNTER 2024-07-19 15:54 | Outpatient (AMB) | payer OTHER, SELFPAY ==
[2024-07-19 16:05] VITALS: BP 122/86; PULSE 69; O2SAT 97; BMI 23.6
--- NOTE | 2024-07-19 16:05 | A.OFFPC_ITS ---
Vital Signs 07/19/24 16:05 Height 5 ft 6.93 in Weight 150 lb 2.157 oz BMI 23.6 BP 122/86 Blood Pressure Location Lt brachial Position Sitting Pulse 69 Pulse Source Pulse Oximeter Pulse Oximetry (%) 97 Oxygen Delivery Method Room Air Intake Visit Reasons: [facility] RSV Anatomic Pathology Manager Required: No Accompanied by: Self / Same As Patient Allergies No Known Allergies Allergy (Verified 07/19/24 16:16) Medication List - Last Reconciled 07/19/24 by ASIF Arellano albuterol sulfate 90 mcg/actuation 2 puffs inhalation Q6H PRN amlodipine 10 mg PO DAILY atorvastatin 10 mg PO BEDTIME chlorhexidine gluconate 0.12% 15 mL mucous membrane BID cholecalciferol (vitamin D3) 50 mcg PO DAILY 90 days clonidine HCl 0.1 mg PO BID 90 days dextromethorphan-guaifenesin 10-100 mg/5 mL 10 mL PO Q4H PRN ketoconazole 2% 1 appl topical BID [LIGHTWEIGHT FOLDING WHEELCHAIR (medium) As directed] losartan 100 mg PO DAILY 90 days omeprazole 20 mg PO BID@0630,1630 prednisone 40 mg (2 x 20 mg) PO DAILY quetiapine 25 mg PO BEDTIME [ROLLATOR with SEAT As directed] valproic acid 500 mg (2 x 250 mg) PO DAILY vitamin B complex 1 cap PO DAILY Tobacco use date assessed: 07/19/24 Dental Screening Dental Screen Date: 07/19/24 Did you have a dental visit in the last 12 months?: Yes Did you have a dental problem in the last 6 months where you did not have access to dental care?: No Was dental information given to patient?: Patient has dentist HPI [facility] RSV HPI Details The patient is a 59-year-old male with past medical history of spastic hemiparesis, PUD, dysphagia, CVA, hypertension, vitamin-D deficiency, iron deficiency anemia Patient is presenting a wheelchair with for post hospital visit follow up The patient was non-verbal, his was provided most of the history The patient nods his head yes or no to simple questions The patient denies sob, chest pain, heart palpitation or dizziness The patient went to the hospital with respiratory symptoms and was found to have RSV He was admitted with hypoxia secondary to RSV infection with acute bronchiolitis noted on CXR He was treated with IV steroids and nebulizers ATC and PRN The patient was discharged on prednisone, cough medicine and PRN albuterol On exam: lungs clear, heart rate regular, denies cough, sob, chest pain, moving his bowels ok finished his prednisone, not using the rescue inhaler anymore either. 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 1. Little interest or pleasure in doing things: not at all 2. Feeling down, depressed, or hopeless: not at all 3. Trouble falling or staying asleep, or sleeping too much: not at all 4. Feeling tired or having little energy: not at all 5. Poor appetite or overeating: not at all 6. Feeling bad about yourself - or that you are a failure or have let yourself or your family down: not at all 7. Trouble concentrating on things, such as reading the newspaper or watching television: not at all 8. Moving or speaking so slowly that other people could have noticed. Or the opposite - being so fidgety or restless that you have been moving around a lot more than usual: not at all 9. Thoughts that you would be better off or of hurting yourself in some way: not at all Total score: 0 Depression Screening Interpretation: Negative Depression Screening Done: Yes 08454 - PHQ-9 Billing: Yes Source: Developed by Drs. Feng Alcaraz, Rubia Galvan, Sulaiman Daniel and colleagues, with an educational rachele from [employer]. Thrive Questionnaire Date Thrive assessed: 07/19/24 I am a: Patient What is your living situation today?: I have a steady place to live Within the past 12 months, did the food you bought not last and you didn't have the money to get more?: Never true Within the past 12 months, did you worry whether your food would run out before you got money to buy more?: Never true Do you have trouble paying for medicines?: No Do you have trouble getting transportation to medical appointments?: No Do you have trouble paying your heating and electricity bill?: No Do you have trouble taking care of your child, family member or friend?: No Do you have trouble with day-to-day activities such as bathing, preparing meals, shopping, managing finances, etc.?: No Are you currently unemployed and looking for a job?: No Are you interested in more education?: No Please select the resources that you would like help with: None Currently or been in a relationship where the following occur: No concerns reported THRIVE Score: 0 AUDIT C Alcohol Use Questionnaire (AUDIT-C) 1. How often do you have a drink containing alcohol?: Monthly or less 2. How many drinks containing alcohol do you have on a typical day when you are drinking?: 1 or 2 3. How often do you have six or more drinks on one occasion?: Never Total Score: 1 Score Reviewed/Action Taken: Yes JAREK-7 AMB Questionnaire JAREK-7 Date JAREK - 7 assessed: 07/19/24 Feeling nervous, anxious, or on edge: 0 = Not at all Not being able to stop or control worryin = Not at all Worrying too much about different things: 0 = Not at all Trouble relaxin = Not at all Being so restless that it is hard to sit still: 0 = Not at all Becoming easily annoyed or irritable: 0 = Not at all Feeling afraid as if something awful might happen: 0 = Not at all Total JAREK-7 score (0-4 normal; 5-9 mild; 10-14 moderate; 15-21 severe): 0 Source: Developed by Drs. Feng Alcaraz, Rubia Galvan, Sulaiman Daniel and colleagues, with an educational rachele from [employer]. JAREK-7 Assessment Billing JAREK-7 Assessment Tool: JAREK-7 Assessment 98178 Review of Systems Const Details: Denies chills, Denies fatigue, Denies fever(s), Denies headache(s) and Denies weakness HEENT Denies change in vision, Denies dizziness, Denies headache(s), Denies hearing loss, Denies nasal congestion, Denies sinus pain, Denies sinus pressure and Denies sore throat other: dysphagia s/p cva Card Denies chest pain, Denies lightheadedness, Denies dyspnea and Denies other (palpitations) Resp Denies cough, Denies dyspnea and Denies wheezing GI Denies abdominal pain, Denies melena, Denies hematochezia, Denies change in bowel habits, Denies dyspepsia and Denies nausea Denies hematuria and Denies dysuria Musc Denies abnormal gait, Denies myalgias, Denies arthralgias, Denies numbness and Denies tingling Skin/Breast Denies rash, Denies unusual bruising and Denies wounds Neuro Denies abnormal gait, Denies dizziness, Denies headache(s), Denies memory loss, Denies numbness, Denies Sensory deficit (Neuro), Denies tingling and Denies weakness Psych Denies anxiety, Denies depression and Denies memory loss Endo Denies cold intolerance, Denies fatigue, Denies heat intolerance, Denies polydipsia and Denies polyuria Luis Felipe/Lymph Denies easy bleeding and Denies easy bruising Aller/Immun Denies wheezing Physical exam (Primary Care) Vital Signs: Last Vital Signs Pulse 69 07/19/24 16:05 BP 122/86 07/19/24 16:05 Pulse Ox 97 07/19/24 16:05 Oxygen Delivery Method Room Air 07/19/24 16:05 BMI result Body Mass Index 23.6 Tobacco/Smoking Status: Tobacco use Status Tobacco use date assessed 07/19/24 07/19/24 16:09 Patient Tobacco Use Status Never used Tobacco 07/19/24 16:09 e-Cigarette/Vaping Use Never Used 07/19/24 16:09 PHQ-9: PHQ-9 Score PHQ-9: Total score 0 07/19/24 16:28 Depression Screening Interpretation: Negative Thrive Assessment: Date of Thrive Assessment Date Thrive assessed 07/19/24 07/19/24 16:09 Currently or been in a relationship where the following occur: No concerns reported Const Other: General: no acute distress, well developed, alert and awake Nutritional Appearance: well nourished Orientation/consciousness: patient oriented x3 HENMT Head: Yes normocephalic and Yes atraumatic Ears: hearing grossly normal bilaterally and TM's normal bilaterally General nose exam: Normal external nose present and Normal nares present Mouth: Normal oral and palatal mucosa present and moist mucous membranes Eyes Pupils: Equal, round and reactive pupils present and Pupil accommodation reflex normal EOM: EOMs intact bilaterally Neck Neck: Yes normal visual inspection, Yes no lymphadenopathy and Yes trachea midline Thyroid: Thyroid normal Lymphatic: no lymphadenopathy noted Chest Chest palpation & inspection: normal inspection of the chest Resp Effort & Inspection: normal respiratory effort Auscultation: clear to auscultation bilaterally Cardio Rate: regular rate Rhythm: regular rhythm Heart sounds: S1 normal heart sound present, S2 normal heart sound present, no gallops, no murmurs and no rubs GI Palpation (GI):abdomen soft and nontender to palpation Auscultation: normal bowel sounds General: Yes no CVA tenderness Back/Spine/Pelvis Back: no CVA tenderness Cervical Spine: cervical ROM normal and No Cervical spine tenderness Thoracic/Lumbar Spine: No lumbar tenderness tenderness Skin General: warm and dry. Normal skin color. Normal skin turgor Lesions: no lesions Rashes: no rashes Trauma: no lacerations or abrasions Wounds: no wounds Nails: normal Neuro General: patient oriented x3 Cranial nerves: Yes Equal, round and reactive pupils present Cognition (Neuro): normal cognition Motor exam (neuro): RUE 4/5, RLE 4/5, LUE 5/5, LLE 5/5 Sensory Exam: No Sensory deficit (Neuro) Extrem General: No calf tenderness Other: right sided weakness, mild nonpitting edema in right lower leg Psych Appearance: grossly normal Affect: normal affect Attitude: cooperative Thought process: Normal thought process present Coding Level of Care Code Est Pt Level 4 (14155) Diagnoses Cerebrovascular accident (CVA), unspecified mechanism I63.9 CVA mechanism: unspecified Right hemiplegia G81.91 Benign essential hypertension I10 Iron deficiency anemia, unspecified iron deficiency anemia type D50.9 Iron deficiency anemia type: unspecified iron deficiency Vitamin D deficiency E55.9 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 Bronchiolitis due to respiratory syncytial virus (RSV) J21.0 Additional Codes PHQ-9 - 66385 - PHQ-9 Billing: Yes ([id number]) JAREK-7 Assessment Billing - JAREK-7 Assessment Tool: JAREK-7 Assessment 43320 ([id number]) Time Spent (min) 36 Assessment & Plan Assessment & Plan (1) Cerebrovascular accident (CVA): Comment: x3 (2002, 2005 and 2008) Code(s): I63.9 - Cerebral infarction, unspecified Category: Medical Qualifiers: CVA mechanism: unspecified Qualified Code(s): I63.9 - Cerebral infarction, unspecified Plan: S/P CVA a few years ago with residual right hemiparesis and aphasia states that patient's overall mobility and gait quality have improved a lot with physical therapy in the past Reports that the patient could walk but walks very slow, she have him uses the wheelchair when going out (2) Right hemiplegia: Code(s): G81.91 - Hemiplegia, unspecified affecting right dominant side Category: Medical Plan: Patient's overall mobility and gait quality have reportedly improved a lot with physical and occupational therapy and will continue with PT/OT as scheduled or as needed He was also referred to physiatry for further management previously when his indicated that his right-sided weakness has gotten worse and was recommended for physical therapy again (3) Benign essential hypertension: Code(s): I10 - Essential (primary) hypertension Category: Medical Plan: Reinforced low sodium diet - goal is systolic BP of at least 130 mm or less BP 122/86 in office Continue Amlodipine 10 mg QD, Losartan 100 mg QD and Clonidine 0.1 mg BID (4) Iron deficiency anemia: Code(s): D50.9 - Iron deficiency anemia, unspecified Category: Medical Qualifiers: Iron deficiency anemia type: unspecified iron deficiency Qualified Code(s): D50.9 - Iron deficiency anemia, unspecified Plan: Corrected Will continue to monitor his CBC periodically (5) Vitamin D deficiency: Code(s): E55.9 - Vitamin D deficiency, unspecified Category: Medical Plan: Continue Vitamin D3 2000 units QD (6) 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): Code(s): I63.9 - Cerebral infarction, unspecified; F06.30 - Mood disorder due to known physiological condition, unspecified Category: Medical Plan: Continue Valproic Acid 500 mg Q AM and Quetiapine?25 mg Q HS Due to his increasing moodiness, per his , will refer him to Psychiatry for further evaluation and management (7) Bronchiolitis due to respiratory syncytial virus (RSV): Code(s): J21.0 - Acute bronchiolitis due to respiratory syncytial virus Category: Medical Plan: Post hospital admission for hypoxia and was found to be positive for RSV with acute bronchiolitis shown on CXR and serology The patient was treated with IV steroids and nebuliizers ATC . The patient was discharge on prednison, cough medicine and PRN albuterol The patient reports that the patient completed his prednisone and has not had to use his rescue inhaler Medications: Refilled quetiapine 25 mg PO BEDTIME 90 tabs 1RF
== END 2024-07-19 16:43 | disposition home or self-care (01) ==
PROVIDERS: PCP Internal Medicine
DX: I63.9 Cerebral infarction, unspecified (principal); G81.91 Hemiplegia, unspecified affecting right dominant side; I10 Essential (primary) hypertension; D50.9 Iron deficiency anemia, unspecified; E55.9 Vitamin D deficiency, unspecified; F06.30 Mood disorder due to known physiological condition, unspecified; J21.0 Acute bronchiolitis due to respiratory syncytial virus

== ENCOUNTER → 2024-07-19 15:54 | Outpatient (BNVA) | payer OTHER, SELFPAY | PROVIDERS: PCP Internal Medicine | DX: I63.9 Cerebral infarction, unspecified (principal); G81.91 Hemiplegia, unspecified affecting right dominant side; I10 Essential (primary) hypertension; D50.9 Iron deficiency anemia, unspecified; E55.9 Vitamin D deficiency, unspecified; F06.30 Mood disorder due to known physiological condition, unspecified; J21.0 Acute bronchiolitis due to respiratory syncytial virus | CPT/HCPCS: 96127; 99212 ==

== ENCOUNTER 2024-08-23 10:45 | Inpatient (IN) | payer MEDICAID, SELFPAY ==
[2024-08-23] VITALS (12 sets, daily range): BP systolic 85–129; BP diastolic 51–85; PULSE 81–117; RESP 16–26; TEMP 36.8–39.9; O2SAT 90–96; BMI 27.1
--- NOTE | ~2024-08-23 | XR_ITS ---
EXAMINATION: XR CHEST CLINICAL INFORMATION: sob COMPARISON: August 23, 2024. TECHNIQUE: Frontal view of the chest was obtained. FINDINGS: Indistinct margins in the pulmonary hilar region. No gross consolidation, pleural effusion or pneumothorax. Calcified plaque thoracic aortic arch. Multilevel thoracic spondylosis. Heart silhouette size is normal. Degenerative changes in the common clavicular joints. XR/XR chest 1V IMPRESSION: Mild interstitial lung edema versus acute small airway inflammatory disease. Electronically signed by: Delmer Fournier MD 08/24/2024 02:15 PM EDT
--- NOTE | ~2024-08-23 | XR_ITS ---
EXAMINATION: XR CHEST CLINICAL INFORMATION: cough, fever, body aches, sore throat COMPARISON: 06/22/2024. TECHNIQUE: 2 views of the chest were obtained. FINDINGS: There is rightward rotation. The cardiac, hilar, and mediastinal contours are normal. Aortic mural calcification. The lungs are clear bilaterally. There is no pneumothorax or pleural effusion. There is no focal osseous or soft tissue abnormality. XR/XR chest 2V IMPRESSION: No active pulmonary disease. Electronically signed by: Jese Aldrich MD 08/23/2024 11:41 AM EDT
--- NOTE | 2024-08-23 11:10 | ED.GENADULT ---
HPI - General Adult General Chief complaint: Upper Respiratory Symptoms Stated complaint: Fever, cough Time Seen by Provider: 08/23/24 14:07 Source: patient Mode of arrival: ambulatory Limitations: no limitations History of Present Illness ED Provider: Dr. Jacobo HPI narrative: 59 year old male PMH: CVA, hypertension, hyperlipidemia initially presented normal blood pressure and no hypoxia found to have influenza a on workup. Patient was going to be discharged but with the blood pressure and hypoxia was brought back to room patient has been vaccinated for influenza x-rays unremarkable Related Data Home Medications ?Medication ?Instructions ?Recorded ?Confirmed vitamin B complex 1 cap PO DAILY 04/29/22 07/19/24 omeprazole 20 mg capsule,delayed 20 mg PO BID@0630,1630 06/22/24 07/19/24 release Previous Rx's ?Medication ?Instructions ?Recorded ROLLATOR with SEAT #1 ea 06/17/21 LIGHTWEIGHT FOLDING WHEELCHAIR #1 ea 05/29/23 (medium) cholecalciferol (vitamin D3) 50 50 mcg PO DAILY 90 days #90 caps 10/05/23 mcg (2,000 unit) capsule clonidine HCl 0.1 mg tablet 0.1 mg PO BID 90 days #180 tabs 10/05/23 losartan 100 mg tablet 100 mg PO DAILY 90 days #90 tabs 10/05/23 chlorhexidine gluconate 0.12 % 15 ml mucous membrane BID #118 mL 05/18/24 mouthwash albuterol sulfate 90 mcg/actuation 2 puff inhalation Q6H PRN 06/23/24 aerosol inhaler shortness of breath or wheezing #6.7 grams dextromethorphan-guaifenesin 10 10 ml PO Q4H PRN Cough #237 mL 06/23/24 mg-100 mg/5 mL oral syrup prednisone 20 mg tablet 40 mg (2 x 20 mg) PO DAILY #8 tabs 06/23/24 amlodipine 10 mg tablet 10 mg PO DAILY #90 tabs 06/27/24 atorvastatin 10 mg tablet 10 mg PO BEDTIME #90 tabs 06/27/24 valproic acid 250 mg capsule 500 mg (2 x 250 mg) PO DAILY #180 07/03/24 caps quetiapine 25 mg tablet 25 mg PO BEDTIME #90 tabs 07/19/24 ketoconazole 2 % shampoo 1 appl topical BID #120 mL 08/21/24 oseltamivir 6 mg/mL oral suspension 75 mg (12.5 mL) PO BID 5 days #125 08/23/24 mL Allergies Allergy/AdvReac Type Severity Reaction Status Date / Time No Known Allergies Allergy Verified 08/23/24 11:13 Review of Systems Review of Systems: Review of systems: General: Patient denies any fever chills recent illness or falls Musculoskeletal: Denies back pain or body aches or other injuries HEENT: denies headache, runny nose, ear pain Respiratory: denies shortness of breath, cough Cardiovascular: no chest pain or palpitations : denies dysuria, frequency Abdomen: no nausea vomiting denies abdominal pain Extremities: no swelling, no pain Skin: no diaphoresis Yes all other systems are reviewed and are negative PMFSH Past Medical History Medical History Esophageal ulcer Colon cancer screening Expressive aphasia History of stroke Spastic hemiparesis affecting dominant side Vitamin D deficiency Iron deficiency anemia Right hemiplegia Cerebrovascular accident (CVA) 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) Pure hypercholesterolemia Benign essential hypertension CVA (cerebral vascular accident) Surgical History History of esophagogastroduodenoscopy (EGD) Family History Family History Other Family history non-contributory Social History Social History Housing: House Alcohol intake: former Patient Tobacco Use Status: Never used Tobacco e-Cigarette/Vaping Use: Never Used Second Hand Smoke Exposure: No Advance Directives: Yes Advance Directives Information Provided: Yes Advance Directives on File: No service: No Current occupational status: disabled Cognitive needs: Yes (wheelchair) Hearing needs: No Vision needs: No Physical Exam ED Vital Signs: Vital Signs - 24 hr 08/23/24 11:09 08/23/24 14:06 Temperature 100.7 F H 100.5 F H Pulse Rate 117 H 93 Respiratory Rate 20 18 Blood Pressure 122/80 85/51 L Pulse Oximetry 94 90 L Oxygen Delivery Method Room Air Room Air BMI result Body Mass Index 27.1 General: Well-appearing well-nourished in no signs of distress HEENT: Normocephalic atraumatic Neck: No signs of JVD, no masses no tenderness or lymphadenopathy Cardiovascular: Regular rate and rhythm Respiratory: Clear to auscultation bilaterally Abdomen: Soft nontender no masses Extremities: Normal pedal pulses no signs of edema Skin: Dry warm no rashes Back: No tenderness full ROM Course Course Course Narrative: RME, this is a rapid medical exam performed by Edwar Ortiz please refer to primary provider for complete H&P- 59-year-old male past medical history significant for CVA, hypertension, hyperlipidemia presents for evaluation cough, sore throat and fevers since last night. He does have a temperature of a 100.7? in triage, he was given ibuprofen. Plan for viral swabs, chest x-ray, labs including blood cultures. He was given ibuprofen for his fever. 14:13 attempted to discharge the patient from triage as his workup was largely unremarkable with the exception of influenza a diagnosis. However on repeat vitals his oxygen saturation was 89% in his blood pressure was 85/51. The patient will not be discharged and will instead be brought back to a room. Medications Administered Generic Name Dose Route Start Last Admin Trade Name Freq PRN Reason Stop Dose Admin Sodium Chloride 1,000 mls @ 999 mls/hr 08/23/24 14:30 08/23/24 14:27 Ns IV 08/23/24 15:30 999 mls/hr .Q1H1M ALBERT Administration Discontinued Medications Generic Name Dose Route Start Last Admin Trade Name Freq PRN Reason Stop Dose Admin Ibuprofen 600 mg 08/23/24 11:12 08/23/24 11:16 Ibuprofen 600 Mg Tablet PO 08/23/24 11:13 600 mg ONCE ONE Administration Medical Decision Making Medical Decision Making [facility] Narrative: Patient is positive for for influenza has negative x-ray otherwise normal labs we will give the patient fluids the patient's oxygen for short period of time and reassess. Patient is not normally on oxygen is requiring 2 L to get up to 94% patient is also slightly hypotensive but did respond fluids I do the patient benefit from admission. Differential Diagnosis Differential Diagnoses: The differential diagnosis associated with the presentation includes Influenza electrolyte abnormality weakness dehydration anemia sepsis Admission/Observation Consideration of admission/observation: Escalation of care including admission/observation considered Patient will require admission due to hypoxia Consult Healthcare Provider Management of the patient was discussed with: Hospitalist Lab Data MDM Lab Attestation statement: I reviewed the patient's lab results. 08/23/24 12:07 08/23/24 12:07 Labs: Lab Results 08/23/24 Range/Units 12:07 WBC 8.8 (4.8-10.8) X10*3/uL RBC 5.23 (4.60-5.80) X10*6/uL Hgb 15.2 (14.0-18.0) g/dl Hct 44.0 (42.0-52.0) % MCV 84.1 (80.0-98.0) fL MCH 29.1 (27.0-33.0) pg MCHC 34.5 (31.0-36.0) g/dl RDW 12.5 (11.0-16.0) % Plt Count 184 (160-400) X10*3/uL MPV 9.4 (9.4-12.4) fL Immature Gran % (Auto) 0.6 H (0.0-0.4) % Neut % (Auto) 78.7 H (45-73) % Lymph % (Auto) 3.1 L (20-40) % [place] % (Auto) 13.5 H (2-11) % Eos % (Auto) 3.5 (0-4) % Baso % (Auto) 0.6 (0-2) % Lymph # (Auto) 0.3 L (1.2-4.9) X10*3/uL [place] # (Auto) 1.2 (0.1-1.2) X10*3/uL Eos # (Auto) 0.3 (0.0-0.4) X10*3/uL Baso # (Auto) 0.1 (0.0-0.2) X10*3/uL Abs Immat Gran (auto) 0.05 H (0.00-0.03) X10*3/uL Absolute Neuts (auto) 6.9 (2.0-8.3) x10*3/uL Absolute Nucleated RBC 0.000 (0.0-0.012) X10*3/uL Nucleated RBC % (auto) 0.0 (0.0-0.2) /100WBC Sodium 139 (135-145) mmol/L Potassium 4.1 (3.3-5.1) mmol/L Chloride 106 (96-108) mmol/L Carbon Dioxide 25 (22-29) mmol/L Anion Gap 12 (12-20) BUN 13 (9-16) mg/dL Creatinine 1.58 H (0.5-1.4) mg/dL Estim Creat Clear Calc 46.7 Estimated GFR 45 Random Glucose 108 (60-115) mg/dL Lactic Acid 1.7 (0.5-2.0) mmol/L Calcium 9.1 (8.4-10.2) mg/dL Total Bilirubin 0.6 (0.0-1.0) mg/dL AST 20 (5-37) U/L ALT 24 (0-40) U/L Alkaline Phosphatase 96 (39-117) U/L Total Protein 8.4 H (6.5-8.0) g/dL Albumin 4.4 (3.5-5.0) g/dL Lipase 34 (8-78) U/L Influenza Type A (PCR) POSITIVE A (Negative) Influenza Type B (PCR) NEGATIVE (Negative) RSV RNA Qual (PCR) NEGATIVE (Negative) SARS-CoV-2 RNA (RT-PCR) NEGATIVE (Negative) S. pyogenes GrpA ERIC Negative (Negative) Independent Interpretation I performed an independent interpretation of an: Plain X-Ray Radiology Impression Discussion of test interpretation with radiology: I have reviewed the radiologist's reading. Independent Historian Clinical information obtained from an independent historian. History obtained from or confirmed by: Spouse External Record Review External record reviewed: Inpatient record and Office record Core Measures AMI core measures followed: Yes Discharge Plan Discharge Clinical Impression: Influenza A, Hypoxia, Acute hypotension, Acute dehydration Patient Disposition: Admitted As Inpatient Prescriptions: New oseltamivir 6 mg/mL suspension for reconstitution 75 mg PO BID 5 Days Qty: 125 0RF No Action chlorhexidine gluconate 0.12 % mouthwash 15 ml mucous membrane BID Qty: 118 1RF amlodipine 10 mg tablet 10 mg PO DAILY Qty: 90 1RF atorvastatin 10 mg tablet 10 mg PO BEDTIME Qty: 90 1RF valproic acid 250 mg capsule 500 mg PO DAILY Qty: 180 0RF ketoconazole 2 % shampoo 1 appl topical BID Qty: 120 1RF Rx Instructions: Apply 10 mL to wet scalp, lather, leave on 3 minutes, and rinse; Apply twice a day for 2 weeks. omeprazole 20 mg capsule,delayed release(DR/EC) 20 mg PO BID@0630,1630 dextromethorphan-guaifenesin 10-100 mg/5 mL Syrup 10 ml PO Q4H PRN (Reason: Cough) Qty: 237 0RF prednisone 20 mg tablet 40 mg PO DAILY Qty: 8 0RF albuterol sulfate 90 mcg/actuation HFA aerosol inhaler 2 puff inhalation Q6H PRN (Reason: shortness of breath or wheezing) Qty: 6.7 0RF (DME) ROLLATOR with SEAT See Rx Instructions .Route .MEDSUPPLY Qty: 1 0RF Rx Instructions: As directed (DME) LIGHTWEIGHT FOLDING WHEELCHAIR (medium) See Rx Instructions .Route .MEDSUPPLY Qty: 1 0RF Rx Instructions: As directed cholecalciferol (vitamin D3) 50 mcg (2,000 unit) capsule 50 mcg PO DAILY 90 Days Qty: 90 3RF losartan 100 mg tablet 100 mg PO DAILY 90 Days Qty: 90 3RF clonidine HCl 0.1 mg tablet 0.1 mg PO BID 90 Days Qty: 180 1RF vitamin B complex Capsule 1 cap PO DAILY quetiapine 25 mg tablet 25 mg PO BEDTIME Qty: 90 1RF Print Language: Bhutanese
[2024-08-23] MEDS: Ibuprofen 600 MG TABLET PO (11:16)
[2024-08-23 12:23] LABS: MANUAL DIFF FLAG NO
[2024-08-23 12:24] LABS: Basophils Absolute Auto 0.1 X10*3/uL (0.0-0.2); Basophils Percent Auto 0.6 % (0-2); Eosinophils Absolute Auto 0.3 X10*3/uL (0.0-0.4); Eosinophils Percent Auto 3.5 % (0-4); Hemoglobin 15.2 g/dl (14.0-18.0); Imm Gran Abs Auto 0.05 X10*3/uL (0.00-0.03); Imm Gran Pct Auto 0.6 % (0.0-0.4); Lymphocytes Absolute Auto 0.3 X10*3/uL (1.2-4.9); Lymphocytes Percent Auto 3.1 % (20-40); Mean Corpuscular HGB Conc 34.5 g/dl (31.0-36.0); Mean Corpuscular Hemoglobin 29.1 pg (27.0-33.0); Mean Corpuscular Volume 84.1 fL (80.0-98.0); Mean Platelet Volume 9.4 fL (9.4-12.4); Monocytes Absolute Auto 1.2 X10*3/uL (0.1-1.2); Monocytes Percent Auto 13.5 % (2-11); Neutrophils Absolute Auto 6.9 x10*3/uL (2.0-8.3); Neutrophils Percent Auto 78.7 % (45-73); Platelet Count 184 X10*3/uL (160-400); Red Blood Count 5.23 X10*6/uL (4.60-5.80); Red Cell Distribution Width 12.5 % (11.0-16.0); White Blood Count 8.8 X10*3/uL (4.8-10.8)
[2024-08-23 12:44] LABS: Lactic Acid 1.7 mmol/L (0.5-2.0)
[2024-08-23 12:45] LABS: Alanine Aminotransferase 24 U/L (0-40); Albumin Level 4.4 g/dL (3.5-5.0); Alkaline Phosphatase 96 U/L (39-117); Anion Gap 12 (12-20); Aspartate Amino Transferase 20 U/L (5-37); Bilirubin Total 0.6 mg/dL (0.0-1.0); Blood Urea Nitrogen 13 mg/dL (9-16); Calcium 9.1 mg/dL (8.4-10.2); Carbon Dioxide 25 mmol/L (22-29); Chloride 106 mmol/L (96-108); Creatinine Clr Calc Pharmacy 46.7; Estimated Glomerular Filt Rate 45; Glucose Random 108 mg/dL (60-115); Lipase 34 U/L (8-78); Potassium 4.1 mmol/L (3.3-5.1); Sodium 139 mmol/L (135-145); Total Protein 8.4 g/dL (6.5-8.0)
[2024-08-23 12:58] LABS: IDNOW Serial# 08D9AD1C; Strep A Nucleic Acid Negative (Negative)
[2024-08-23 13:45] LABS: Influenza A PCR POSITIVE (Negative); Influenza B PCR NEGATIVE (Negative); Resp Syncy Virus RNA Qual PCR NEGATIVE (Negative); SARS COV2 PCR INHOUSE NEGATIVE (Negative)
[2024-08-23] MEDS: 0.9 % Sodium Chloride 1,000 ML 999 ML IV (14:27)
[2024-08-23] MEDS: Acetaminophen 1,000 MG/100 ML PIGGYBACK 400 MG IV (15:07)
--- NOTE | 2024-08-23 15:24 | P.HPHOSP_ITS ---
History of Present Illness Date of Service: 08/23/24 Chief Complaint: Sore throat and fever A 58 yeats old male with PMH CVA about 15 years ago complicated by spastic Hemiparesis, PUD, dysphagia and aphasia, HTN among other who is presenting from home with worsening SOB for the last 2 days.He is non-verbal and was unable to provide any meaningful history. History obtained from family at bedside. He was admitted in june for respiratory diffficulty due to RSV. He presents today because of sore throat, cough and fever. He has tested postive for inluenza A. CXR show clear lung bilatereally. O2 sat 90 to 96% on room air. He has had a drop in BP from 120 to 84 and given IVF and BP now in 90s. CBC is within normal. Review of Systems 2 Review of Systems: Yes Unobtainable due to mental status [facility] Medical History Esophageal ulcer Colon cancer screening Expressive aphasia History of stroke Spastic hemiparesis affecting dominant side Vitamin D deficiency Iron deficiency anemia Right hemiplegia Cerebrovascular accident (CVA) 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) Pure hypercholesterolemia Benign essential hypertension CVA (cerebral vascular accident) Family History Other Family history non-contributory Surgical History History of esophagogastroduodenoscopy (EGD) Social History Household Members: Spouse Housing: House Do you presently have visiting nurse or other home services: No Alcohol intake: former Patient Tobacco Use Status: Never used Tobacco Smoked in Last 30 Days: No e-Cigarette/Vaping Use: Never Used Second Hand Smoke Exposure: No Use of substances other than those prescribed or required for medical reasons: Unable to respond Currently Displaying Signs/Symptoms of Drug Intoxication Withdrawal: No Advance Directives: Yes Advance Directives Information Provided: Yes Advance Directives on File: No Advance Directives Date on File: 08/23/24 Do you have a plan to hurt others: No Plan Nutrition Risks: Difficulty swallowing Poor oral hygiene: No service: No Current occupational status: disabled Cognitive needs: Yes (wheelchair) Hearing needs: No Vision needs: No Meds Allergies Allergy/AdvReac Type Severity Reaction Status Date / Time No Known Allergies Allergy Verified 08/23/24 11:13 Active Medications: Current Medications Sodium Chloride (Ns) 1,000 mls @ 999 mls/hr IV .Q1H1M ALBERT Stop: 08/23/24 15:30 Last Admin: 08/23/24 14:27 Dose: 999 mls/hr Home Medications ?Medication ?Instructions ?Recorded ?Confirmed ?Last Taken ?Type vitamin B complex 1 cap PO DAILY 04/29/22 08/23/24 08/23/24 History omeprazole 20 mg capsule,delayed 20 mg PO BID@0630,1630 06/22/24 08/23/24 08/23/24 History release Physical Exam 2 Vital Signs and Narrative: Vital Signs: Last Vital Signs Temp 100.5 F H 08/23/24 14:06 Pulse 93 08/23/24 14:06 Resp 18 08/23/24 14:06 BP 85/51 L 08/23/24 14:06 Pulse Ox 90 L 08/23/24 14:06 O2 Del Method Room Air 08/23/24 14:06 O2 Flow Rate 2 08/23/24 14:00 BMI result Body Mass Index 27.1 Const: Other: General:Alert, he doesn't talk Resp: CTA bilateral CVS: S1,S2,RRR GI: +BS, NT, no distention Skin: No rash Neuro: motor grossly intact Psych: appropriate affect Results Labs 08/23/24 12:07 08/24/24 05:10 Labs: Laboratory Results - last 24 hr 08/23/24 12:07 MCV 84.1 MCH 29.1 MCHC 34.5 RDW 12.5 Plt Count 184 MPV 9.4 Immature Gran % (Auto) 0.6 H Neut % (Auto) 78.7 H Lymph % (Auto) 3.1 L [place] % (Auto) 13.5 H Eos % (Auto) 3.5 Baso % (Auto) 0.6 Lymph # (Auto) 0.3 L [place] # (Auto) 1.2 Eos # (Auto) 0.3 Baso # (Auto) 0.1 Abs Immat Gran (auto) 0.05 H Absolute Neuts (auto) 6.9 Absolute Nucleated RBC 0.000 Nucleated RBC % (auto) 0.0 Anion Gap 12 Estim Creat Clear Calc 46.7 Estimated GFR 45 Random Glucose 108 Lactic Acid 1.7 Calcium 9.1 Total Bilirubin 0.6 AST 20 ALT 24 Alkaline Phosphatase 96 Total Protein 8.4 H Albumin 4.4 Lipase 34 Influenza Type A (PCR) POSITIVE A Influenza Type B (PCR) NEGATIVE RSV RNA Qual (PCR) NEGATIVE SARS-CoV-2 RNA (RT-PCR) NEGATIVE S. pyogenes GrpA ERIC Negative Imaging Radiologist's Impressions: Impressions Chest X-Ray 08/23/24 11:14 IMPRESSION: No active pulmonary disease. Electronically signed by: Jese Aldrich MD 08/23/2024 11:41 AM EDT RP Assessment and Plan (1) Influenza A: Status: Acute (2) Viral sepsis: Status: Acute Plan 59/m year old male with PMH of CVA with spastic Hemiparesis, PUD, dysphagia, HTN here with flu and viral sepsis, hypOtension Influeza with borderline O2 sat, viral sepsis symptomatic treatment Tamiflu Tylneol for fever Hypotension viral sepsis check lactic acid IVF Dysphadia modified diet HTN Hold BP meds Mood disorder Valprioc acid, Seroquel DVT PPx Lovenox Inpatient for at least 2 midnights for viral sepsis, hypotension needing IVF Quality Stroke Does the patient have a stroke diagnosis?: No VTE Prior VTE?: No VTE Risk Level:: Medical - moderate - high VTE Device Contraindication: N/A - Device Ordered VTE Drug Contraindication: N/A - Med Ordered
--- NOTE | 2024-08-23 15:56 | PHA.MEDREC ---
Pharmacy Consult ? Medication Reconciliation Pharmacy has completed the medication reconciliation. Spoke with patient family at bedside who was able to confirm the patients medications. The family member confirmed the patient is still taking an Albuterol inhaler and looking in claims there was nothing and after calling patients pharmacy they have no claims from what they can see from 2022.
--- NOTE | 2024-08-23 15:58 | PHA.MEDREC ---
Addendum entered by Dario Lanier RPh 08/23/24 16:59: Med rec was reviewed by Nestor. Original Note: Pharmacy Consult ? Medication Reconciliation Pharmacy has completed the medication reconciliation. Spoke with patient family at bedside who was able to confirm the patients medications. The family member confirmed the patient is still taking an Albuterol inhaler and looking in claims there was nothing and after calling patients pharmacy they have no claims from what they can see from 2022. The family member confirmed the patient took his medications this morning.
[2024-08-23 17:04] LABS: Lactic Acid 1.2 mmol/L (0.5-2.0)
[2024-08-23] MEDS: 0.9 % Sodium Chloride Flush 3 ML SYRINGE IVFLUSH (17:26)
[2024-08-23] MEDS: Omeprazole 20 MG CAPSULE.DR PO (17:26)
[2024-08-23] MEDS: Lactated Ringers 1,000 ML 150 ML IVCONT ×2 (17:29→22:11)
--- NOTE | 2024-08-23 19:25 | PC.NURSE ---
Took over care from family Radha at the bedside, pt has a low grade temp. plan is for be to be admitted, awaiting bed assignment.
[2024-08-23] MEDS: Acetaminophen 325 MG TABLET 650 MG PO (20:18)
--- NOTE | 2024-08-23 20:20 | PC.NURSE ---
Notified provider DR. Anton, rectal temp 102 rectal, medicated per aug.
--- NOTE | 2024-08-23 20:21 | PC.NURSE ---
Pt incontinent of urine, complete bed change.
--- NOTE | 2024-08-23 20:35 | PC.NURSE ---
Dr. Anton aware of rectal temp 103, new orders placed.
[2024-08-23] MEDS: Ketorolac Tromethamine 15 MG/ML VIAL IVPUSH (20:37)
--- NOTE | 2024-08-23 20:44 | PC.NURSE ---
updated RN, regarding temp and provider new orders.
--- NOTE | 2024-08-23 21:02 | PC.NURSE ---
Notified Dr. Anton, aware of temp, pt placed on cooling blanket.
[2024-08-23] MEDS: Atorvastatin Calcium 10 MG TABLET PO (22:10)
[2024-08-23] MEDS: QUEtiapine Fumarate 25 MG TABLET PO (22:10)
--- NOTE | 2024-08-23 22:48 | PC.NURSE ---
temp 102.2 rectal. Patient placed on cooling blanket.
[2024-08-24] VITALS (12 sets, daily range): BP systolic 123–196; BP diastolic 74–95; PULSE 75–126; RESP 16–24; TEMP 36.4–40; O2SAT 92–97
--- NOTE | 2024-08-24 | ECG_ITS ---
Test Reason : tachycardia Blood Pressure : */* mmHG Vent. Rate : 116 BPM Atrial Rate : 116 BPM P-R Int : 140 ms QRS Dur : 94 ms QT Int : 324 ms P-R-T Axes : 77 57 55 degrees QTcB Int : 450 ms Sinus tachycardia with Premature atrial complexes Nonspecific ST abnormality Abnormal ECG When compared with ECG of 17-Mar-2024 04:56, Premature atrial complexes are now Present Vent. rate has increased by [address] now depressed in Lateral leads Referred By: Migel Mejia Electronically Signed By: ULYSSES ULLOA
[2024-08-24] MEDS: Ibuprofen 400 MG TABLET PO (01:31)
[2024-08-24] MEDS: Lactated Ringers 1,000 ML 150 ML IVCONT ×3 (04:55→20:38)
[2024-08-24] MEDS: Omeprazole 20 MG CAPSULE.DR PO (05:55)
[2024-08-24 05:57] LABS: Alanine Aminotransferase 20 U/L (0-40); Albumin Level 3.8 g/dL (3.5-5.0); Alkaline Phosphatase 83 U/L (39-117); Anion Gap 15 (12-20); Aspartate Amino Transferase 27 U/L (5-37); Bilirubin Total 0.4 mg/dL (0.0-1.0); Blood Urea Nitrogen 13 mg/dL (9-16); Calcium 8.7 mg/dL (8.4-10.2); Carbon Dioxide 24 mmol/L (22-29); Chloride 108 mmol/L (96-108); Estimated Glomerular Filt Rate > 60; Glucose Random 92 mg/dL (60-115); Potassium 3.5 mmol/L (3.3-5.1); Sodium 143 mmol/L (135-145); Total Protein 7.2 g/dL (6.5-8.0)
[2024-08-24 08:39] LABS: Appearance Urine Clear; Color Urine Yellow; Glucose Urine UA Negative (Negative); Leukocyte Esterase Urine Negative (Negative); Nitrite Urine Negative (Negative); PH 7.5 (5.0-9.0); Urine Blood Negative (Negative); Urine Ketones Trace mg/dL (Negative); Urine Protein Trace mg/dL (Neg-Trace)
--- NOTE | 2024-08-24 09:15 | HO.PM.IMPN ---
Subjective Subjective Date of Service: 08/24/24 Interval History: f/u viral sepsis, influenza A Temp of 104 overnight required cooling blanket, temp is normal this morning Hypotension resolved Physical Exam Vital Signs: Vital Signs: Last Vital Signs Temp 98.8 F 08/24/24 07:45 Pulse 82 08/24/24 07:45 Resp 16 08/24/24 07:45 BP 123/74 08/24/24 07:45 Pulse Ox 97 08/24/24 07:45 O2 Del Method Nasal Cannula 08/24/24 07:45 O2 Flow Rate 2 08/24/24 07:45 Oxygen Flow Rate 2 08/23/24 16:00 BMI result Body Mass Index 27.1 General: Awake, no distresss Resp: CTA bilateral CVS: S1,S2,RRR GI: +BS, NT, no distention Skin: No rash Neuro: No new deficits Psych: appropriate affect Objective Data Active Medications Acetaminophen (Acetaminophen 325 Mg Tablet) 650 mg PO Q6H PRN PRN Reason: Pain, Mild 1-3,fever,headache Last Admin: 08/23/24 20:18 Dose: 650 mg Documented By: ADI Albuterol Sulfate (Albuterol Sulfate 90 Mcg 8 Gm Inhaler) 2 puff INHALE Q6H PRN PRN Reason: shortness of breath or wheezing Atorvastatin Calcium (Atorvastatin Calcium 10 Mg Tablet) 10 mg PO BEDTIME COUNT INCLUDES THE [facility] Last Admin: 08/23/24 22:10 Dose: 10 mg Documented By: TONIA Calcium Carbonate (Calcium Carbonate 750 Mg Tab.Chew) 750 mg PO Q4H PRN PRN Reason: Heartburn Guaifenesin/Dextromethorphan (Guaifenesin Dm 100/10/5 Ml 5 Ml Syrup) 10 ml PO Q4H PRN PRN Reason: Cough Lactated Ringer's (Lr) 1,000 mls @ 150 mls/hr IVCONT .Q6H40M ALBERT Last Admin: 08/24/24 04:55 Dose: 150 mls/hr Documented By: TONIA Ketoconazole (Ketoconazole 2 % Shampoo 120 Ml Btl) 1 appl TOPICAL BID ALBERT; Protocol Last Admin: 08/23/24 22:10 Dose: Not Given Documented By: TONIA Non-Admin Reason: not available, pharmacy called Magnesium Hydroxide (Milk Of Magnesia 30 Ml Oral.Susp) 30 ml PO DAILY PRN PRN Reason: Constipation Melatonin (Melatonin 3 Mg Tablet) 6 mg PO BEDTIME PRN PRN Reason: Insomnia Multivitamins/Vitamin C (Multivitamin Tablet) 1 tab PO DAILY COUNT INCLUDES THE [facility] Omeprazole (Omeprazole 20 Mg Capsule.Dr) 20 mg PO BID@0630,1630 COUNT INCLUDES THE [facility] Last Admin: 08/24/24 05:55 Dose: 20 mg Documented By: TONIA Ondansetron HCl (Ondansetron Hcl 4 Mg/2 Ml Vial) 4 mg IVPUSH Q8H PRN PRN Reason: Nausea and Vomiting Oseltamivir Phosphate (Oseltamivir Phosphate 75 Mg Capsule) 75 mg PO Q12H COUNT INCLUDES THE [facility] Stop: 08/28/24 19:31 Quetiapine Fumarate (Quetiapine Fumarate 25 Mg Tablet) 25 mg PO BEDTIME COUNT INCLUDES THE [facility] Last Admin: 08/23/24 22:10 Dose: 25 mg Documented By: TONIA Sodium Chloride (0.9 % Sodium Chloride Flush 3 Ml Syringe) 3 ml IVFLUSH QSHIFT COUNT INCLUDES THE [facility] Last Admin: 08/24/24 00:14 Dose: Not Given Documented By: TONIA Non-Admin Reason: IV Running Valproic Acid (Valproic Acid 250 Mg Capsule) 500 mg PO DAILY COUNT INCLUDES THE [facility] Vitamin D (Cholecalciferol (Vitamin D3) 25 Mcg Tablet) 50 mcg PO DAILY COUNT INCLUDES THE [facility] Labs 08/23/24 12:07 08/24/24 05:10 Labs: Laboratory Results - last 24 hr 08/23/24 08/23/24 08/24/24 12:07 16:36 05:10 MCV 84.1 MCH 29.1 MCHC 34.5 RDW 12.5 Plt Count 184 MPV 9.4 Immature Gran % (Auto) 0.6 H Neut % (Auto) 78.7 H Lymph % (Auto) 3.1 L [place] % (Auto) 13.5 H Eos % (Auto) 3.5 Baso % (Auto) 0.6 Lymph # (Auto) 0.3 L [place] # (Auto) 1.2 Eos # (Auto) 0.3 Baso # (Auto) 0.1 Abs Immat Gran (auto) 0.05 H Absolute Neuts (auto) 6.9 Absolute Nucleated RBC 0.000 Nucleated RBC % (auto) 0.0 Hold Purple Top SEE NOTE SEE NOTE Anion Gap 12 15 Estim Creat Clear Calc 46.7 60.0 Estimated GFR 45 > 60 Random Glucose 108 92 Lactic Acid 1.7 1.2 Calcium 9.1 8.7 Total Bilirubin 0.6 0.4 AST 20 27 ALT 24 20 Alkaline Phosphatase 96 83 Total Protein 8.4 H 7.2 Albumin 4.4 3.8 Lipase 34 Urine Color Urine Appearance Urine pH Ur Specific [place] Urine Protein Urine Glucose (UA) Urine Ketones Urine Blood Urine Nitrite Ur Leukocyte Esterase Influenza Type A (PCR) POSITIVE A Influenza Type B (PCR) NEGATIVE RSV RNA Qual (PCR) NEGATIVE SARS-CoV-2 RNA (RT-PCR) NEGATIVE S. pyogenes GrpA ERIC Negative 08/24/24 08:22 MCV MCH MCHC RDW Plt Count MPV Immature Gran % (Auto) Neut % (Auto) Lymph % (Auto) [place] % (Auto) Eos % (Auto) Baso % (Auto) Lymph # (Auto) [place] # (Auto) Eos # (Auto) Baso # (Auto) Abs Immat Gran (auto) Absolute Neuts (auto) Absolute Nucleated RBC Nucleated RBC % (auto) Hold Purple Top Anion Gap Estim Creat Clear Calc Estimated GFR Random Glucose Lactic Acid Calcium Total Bilirubin AST ALT Alkaline Phosphatase Total Protein Albumin Lipase Urine Color Yellow Urine Appearance Clear Urine pH 7.5 Ur Specific [place] 1.010 Urine Protein Trace Urine Glucose (UA) Negative Urine Ketones Trace Urine Blood Negative Urine Nitrite Negative Ur Leukocyte Esterase Negative Influenza Type A (PCR) Influenza Type B (PCR) RSV RNA Qual (PCR) SARS-CoV-2 RNA (RT-PCR) S. pyogenes GrpA ERIC Assessment and Plan (1) Influenza A: Status: Acute (2) Viral sepsis: Status: Acute Plan 59/m year old male with PMH of CVA with spastic Hemiparesis, PUD, dysphagia, HTN here with Influenza A with viral sepsis, hypOtension Influeza with viral sepsis symptomatic treatment Tamiflu Tylneol for fever Fever, normal now after cooling blanket blood cultures pending, check UA. Hold Abx for now Hypotension d/t viral sepsis, LA normal--hypotension resolved with IVF IVF Dysphadia: Puree, honey thick liquis HTN, hold bp meds Mood disorder Valprioc acid, Seroquel DVT PPx Lovenox Inpatient for at least 2 midnights for viral sepsis, hypotension needing IVF Quality Stroke Does the patient have a stroke diagnosis?: No VTE Prior VTE?: No VTE Risk Level:: Medical - moderate - high VTE Device Contraindication: N/A - Device Ordered VTE Drug Contraindication: N/A - Med Ordered
[2024-08-24] MEDS: Multivitamin TABLET 1 TAB PO (09:43)
[2024-08-24] MEDS: Cholecalciferol (Vitamin D3) 25 MCG TABLET 50 MCG PO (09:43)
[2024-08-24] MEDS: Oseltamivir Phosphate 75 MG CAPSULE PO ×2 (09:43→20:38)
[2024-08-24] MEDS: Ketoconazole 2 % Shampoo 120 ML BTL 1 APPL TOPICAL ×2 (09:44→20:37)
[2024-08-24] MEDS: Valproic Acid 250 MG CAPSULE 500 MG PO (09:44)
--- NOTE | 2024-08-24 12:34 | MHC.CM.PN ---
Addendum entered by Jessica Fenton 08/24/24 12:50: PT LISTED SELFPAY. A TASK WAS SENT TO REGISTRATION RE INSURANCE. PATIENT WAS ACTIVE WITH [employer] EARLIER THIS YEAR, PLEASE CONFIRM AND UPDATE. Original Note: CM met with patient and son at bedside. DX Flu A PMH s/p CVA with residual hemiparesis, aphagia+ dysphagia. Patient lives with family. They provide 24/ care. DME [facility] Family is in the process of obtaining services with [facility]. HCP on file PCP [facility] with family care and transportation.
[2024-08-24] MEDS: Acetaminophen 1,000 MG/100 ML PIGGYBACK 400 MG IV (13:50)
[2024-08-24] MEDS: Piperacillin Sodium/Tazobactam 4.5 GM in 0.9 % Sodium Chloride 100 ML IV ×2 (14:27→20:37)
[2024-08-24] MEDS: Doxycycline Hyclate 100 MG in 0.9 % Sodium Chloride 250 ML 166.67 MG IV (15:09)
--- NOTE | 2024-08-24 19:13 | PC.NURSE ---
Unable to assess orientation, unclear speech, dysphasia. Temp 98.8F at 0800, cooling blanket turned off, sat's above 95% on 2L NC. Patient unsteady, weak, external catheter in place. Patient had multiple loose stool on the commode, provider notified. At aprx. 1330 patient was helped to the commode for the third time when he started to hyperventilate, shaking, tachycardiac, hot to touch. VS completed temp at 102.5, MD was requested to bedside. One dose of Acetaminophen 1000mg IV ordered and administered. Patient placed back on cooling blanket at which point rectal temp registered at 103.0, chest xray and EKG ordered and completed. Patient started on antibiotics. At 1600 patient temp down to 100.4F, HR 97bpm BP 138/88, patient continues on cooling blanket and 2L via NC.
[2024-08-24] MEDS: QUEtiapine Fumarate 25 MG TABLET PO (20:37)
[2024-08-24] MEDS: Acetaminophen 325 MG TABLET 650 MG PO (20:38)
[2024-08-24] MEDS: Atorvastatin Calcium 10 MG TABLET PO (20:38)
[2024-08-25] VITALS (7 sets, daily range): BP systolic 139–155; BP diastolic 77–89; PULSE 85–108; RESP 16–19; TEMP 36.9–37.7; O2SAT 93–97
[2024-08-25] MEDS: Piperacillin Sodium/Tazobactam 4.5 GM in 0.9 % Sodium Chloride 100 ML IV ×3 (01:36→14:37)
--- NOTE | 2024-08-25 01:41 | PC.NURSE ---
Addendum entered by Dania Mcfarlane RN 08/25/24 05:22: temp 98.6 , cooling blanket off. Original Note: Patient placed on Tele monitor by previous shift, no order. ST with PAC'S. HR increases with fever and periods of agitation. Temp more normalized than last night but still in high 100's at times. Patient remains on cooling blanket for now, medicated with Tylenol earlier.
[2024-08-25] MEDS: Doxycycline Hyclate 100 MG in 0.9 % Sodium Chloride 250 ML 166.67 MG IV ×2 (02:12→15:15)
[2024-08-25] MEDS: Acetaminophen 325 MG TABLET 650 MG PO (02:23)
[2024-08-25] MEDS: Omeprazole 20 MG CAPSULE.DR PO (05:31)
[2024-08-25 05:48] LABS: Hematocrit 45.4 % (42.0-52.0); Hemoglobin 15.7 g/dl (14.0-18.0); Mean Corpuscular HGB Conc 34.6 g/dl (31.0-36.0); Mean Corpuscular Hemoglobin 28.8 pg (27.0-33.0); Mean Corpuscular Volume 83.3 fL (80.0-98.0); Mean Platelet Volume 9.9 fL (9.4-12.4); Platelet Count 153 X10*3/uL (160-400); Red Blood Count 5.45 X10*6/uL (4.60-5.80); Red Cell Distribution Width 12.6 % (11.0-16.0); White Blood Count 9.7 X10*3/uL (4.8-10.8)
[2024-08-25 06:06] LABS: Anion Gap 13 (12-20); Blood Urea Nitrogen 11 mg/dL (9-16); Calcium 9.2 mg/dL (8.4-10.2); Carbon Dioxide 27 mmol/L (22-29); Chloride 107 mmol/L (96-108); Creatinine Clr Calc Pharmacy 65.3; Estimated Glomerular Filt Rate > 60; Glucose Random 85 mg/dL (60-115); Potassium 3.2 mmol/L (3.3-5.1); Sodium 144 mmol/L (135-145)
--- NOTE | 2024-08-25 09:08 | PM.DS ---
DS: Providers Provider Date of Service: 08/25/24 Date of admission: 08/23/24 16:00 Date of discharge: 08/25/24 Primary care physician: Raman Torrez MD DS: Diagnosis Discharge Diagnosis (1) Influenza A: Status: Acute (2) Viral sepsis: Status: Acute DS: Summary Hospital Course Hospital Course: admission hpi Chief Complaint: Sore throat and fever A 58 yeats old male with PMH CVA about 15 years ago complicated by spastic Hemiparesis, PUD, dysphagia and aphasia, HTN among other who is presenting from home with worsening SOB for the last 2 days.He is non-verbal and was unable to provide any meaningful history. History obtained from family at bedside. He was admitted in june for respiratory diffficulty due to RSV. He presents today because of sore throat, cough and fever. He has tested postive for inluenza A. CXR show clear lung bilatereally. O2 sat 90 to 96% on room air. He has had a drop in BP from 120 to 84 and given IVF and BP now in 90s. CBC is within normal. Hospital course: The patient presented with sore throat and fever and was diagnosed with Influenza A. A chest X-ray showed no pneumonia, and the patient was not hypoxic. Initially, discharge from the emergency department was planned; however, the patient developed hypotension, requiring IV fluids and subsequent hospital admission.vOvernight, the patient developed a high-grade fever up to 104?F. Blood cultures remained negative, and a repeat chest X-ray showed no pneumonia. Fever was managed with a cooling blanket and Tylenol. The patient was started on empiric Zosyn and Doxycycline and is now afebrile. WBC count remains normal.vGiven the clinical picture, the patient may have superimposed bronchitis and will be transitioned to oral Doxycyline for 5 days and to complete 3 more days of Tamiflu. Patient was started having diarrhea, Cdif and gip were requested, also family reported weakenss, PT eval was requested, however the family asked that patient be discharged as they believed he's at his baseline and could not wait another day, the stated they would do outpatient therapy if needed and also to follow up with PCP, patient was thus discharged as patient directed discharge, meds sent to pharmacy. Final Diagnosis: Viral sepsis due to Influenza A. Hypotension Fever Diarrhea Time Attestation Discharge Coordination Time (in mins): 45 Quality: Safe Use of Opioids Does Pt have an Active Cancer Diagnosis on the Problem List?: No Quality: Stroke Does the patient have a stroke diagnosis?: No Physical Exam Vital Signs: Vital Signs: Last Vital Signs Temp 98.4 F 08/25/24 08:00 Pulse 85 08/25/24 08:00 Resp 16 08/25/24 08:00 BP 139/77 08/25/24 08:00 Pulse Ox 97 08/25/24 08:00 O2 Del Method Room Air 08/25/24 08:00 O2 Flow Rate 2 08/24/24 20:00 Oxygen Flow Rate 2 08/23/24 16:00 BMI result Body Mass Index 27.1 DS: Data Data Completed and Pending Labs on day of discharge: Laboratory Results - last 24 hr 08/25/24 05:16 WBC 9.7 RBC 5.45 Hgb 15.7 Hct 45.4 MCV 83.3 MCH 28.8 MCHC 34.6 RDW 12.6 Plt Count 153 L MPV 9.9 Absolute Nucleated RBC 0.000 Nucleated RBC % (auto) 0.0 Sodium 144 Potassium 3.2 L Chloride 107 Carbon Dioxide 27 Anion Gap 13 BUN 11 Creatinine 1.13 Estim Creat Clear Calc 65.3 Estimated GFR > 60 Random Glucose 85 Calcium 9.2 Preliminary micro results at discharge 08/23/24 14:24 Blood Culture - Preliminary Blood - Venous No growth after 24 hours. 08/23/24 12:07 Blood Culture - Preliminary Blood - Venous No growth after 24 hours. Discharge Plan Discharge Anticipated Discharge Date/Time: 08/25/24 09:10 Patient Disposition: Home, Self-Care Discharge Diagnosis: Viral sepsis, bronchitis Referrals: Raman Torrez MD [Primary Care Provider] - 1 Week Discharge Medications: New oseltamivir 6 mg/mL suspension for reconstitution 75 mg PO BID 5 Days Qty: 125 0RF doxycycline monohydrate 25 mg/5 mL suspension for reconstitution 100 mg PO BID 5 Days Qty: 200 0RF Continued amlodipine 10 mg tablet 10 mg PO DAILY Qty: 90 1RF atorvastatin 10 mg tablet 10 mg PO BEDTIME Qty: 90 1RF valproic acid 250 mg capsule 500 mg PO DAILY Qty: 180 0RF ketoconazole 2 % shampoo 1 appl topical BID Qty: 120 1RF Rx Instructions: Apply 10 mL to wet scalp, lather, leave on 3 minutes, and rinse; Apply twice a day for 2 weeks. omeprazole 20 mg capsule,delayed release(DR/EC) 20 mg PO BID@0630,1630 dextromethorphan-guaifenesin 10-100 mg/5 mL Syrup 10 ml PO Q4H PRN (Reason: Cough) Qty: 237 0RF albuterol sulfate 90 mcg/actuation HFA aerosol inhaler 2 puff inhalation Q6H PRN (Reason: shortness of breath or wheezing) Qty: 6.7 0RF (DME) ROLLATOR with SEAT See Rx Instructions .Route .MEDSUPPLY Qty: 1 0RF Rx Instructions: As directed (DME) LIGHTWEIGHT FOLDING WHEELCHAIR (medium) See Rx Instructions .Route .MEDSUPPLY Qty: 1 0RF Rx Instructions: As directed cholecalciferol (vitamin D3) 50 mcg (2,000 unit) capsule 50 mcg PO DAILY 90 Days Qty: 90 3RF losartan 100 mg tablet 100 mg PO DAILY 90 Days Qty: 90 3RF vitamin B complex Capsule 1 cap PO DAILY quetiapine 25 mg tablet 25 mg PO BEDTIME Qty: 90 1RF Discharge Orders: Discharge Order (Routine); Ordered 08/25/24 Ordered By: Migle Mejia Diet: Advance to usual diet Activity on Discharge: As tolerated Stand Alone Forms: Patient Portal Discharge page Print Language: Vietnamese Care Plan Goals: recovery from influenza with fevers Health Concerns: Influenza with viral sepsis, Plan of Treatment: Take Tamiflu for 3 more days only Take Doxycyline as directed Follow up with your doctor in a week resume dysphagia diet as before Assessment: see above
[2024-08-25] MEDS: Valproic Acid 250 MG CAPSULE 500 MG PO (09:50)
[2024-08-25] MEDS: Cholecalciferol (Vitamin D3) 25 MCG TABLET 50 MCG PO (09:50)
[2024-08-25] MEDS: Losartan Potassium 50 MG TABLET 100 MG PO (09:51)
[2024-08-25] MEDS: Multivitamin TABLET 1 TAB PO (09:51)
[2024-08-25] MEDS: Ketoconazole 2 % Shampoo 120 ML BTL 1 APPL TOPICAL (09:51)
[2024-08-25] MEDS: amLODIPine Besylate 10 MG TABLET PO (09:51)
[2024-08-25] MEDS: Lactated Ringers 1,000 ML 150 ML IVCONT (09:55)
--- NOTE | 2024-08-25 10:55 | ECG_ITS ---
Test Reason : Follow up tachycardia Blood Pressure : */* mmHG Vent. Rate : 75 BPM Atrial Rate : 75 BPM P-R Int : 142 ms QRS Dur : 94 ms QT Int : 392 ms P-R-T Axes : 43 11 58 degrees QTcB Int : 437 ms Normal sinus rhythm Possible Anterior infarct , age undetermined Abnormal ECG When compared with ECG of 24-Aug-2024 15:15, Premature atrial complexes are no longer Present Vent. rate has decreased by 41 bpm anterior infarct changes present. Referred By: Migel De Los Santos Electronically Signed By: ULYSSES ULLOA
--- NOTE | 2024-08-25 16:30 | P.PNIM_ITS ---
Subjective Subjective Date of Service: 08/25/24 Interval History: Fevers resolved but now with diarrhea Physical Exam 2 Vital Signs: Vital Signs: Last Vital Signs Temp 98.5 F 08/25/24 15:02 Pulse 99 08/25/24 15:02 Resp 18 08/25/24 15:02 BP 139/88 08/25/24 15:02 Pulse Ox 93 08/25/24 15:02 O2 Del Method Room Air 08/25/24 15:02 O2 Flow Rate 2 08/24/24 20:00 Oxygen Flow Rate 2 08/23/24 16:00 BMI result Body Mass Index 27.1 General: Awake, no distresss Resp: CTA bilateral CVS: S1,S2,RRR GI: +BS, NT, no distention Skin: No rash Neuro: No new deficits Psych: appropriate affect Objective Data Active Medications Acetaminophen (Acetaminophen 325 Mg Tablet) 650 mg PO Q6H PRN PRN Reason: Pain, Mild 1-3,fever,headache Last Admin: 08/25/24 02:23 Dose: 650 mg Documented By: TONIA Albuterol Sulfate (Albuterol Sulfate 90 Mcg 8 Gm Inhaler) 2 puff INHALE Q6H PRN PRN Reason: shortness of breath or wheezing Amlodipine Besylate (Amlodipine Besylate 10 Mg Tablet) 10 mg PO DAILY [facility]; Protocol Last Admin: 08/25/24 09:51 Dose: 10 mg Documented By: JULIANE Atorvastatin Calcium (Atorvastatin Calcium 10 Mg Tablet) 10 mg PO BEDTIME [facility] Last Admin: 08/24/24 20:38 Dose: 10 mg Documented By: TONIA Calcium Carbonate (Calcium Carbonate 750 Mg Tab.Chew) 750 mg PO Q4H PRN PRN Reason: Heartburn Guaifenesin/Dextromethorphan (Guaifenesin Dm 100/10/5 Ml 5 Ml Syrup) 10 ml PO Q4H PRN PRN Reason: Cough Piperacillin Sod/Tazobactam (Sod 4.5 gm/ Sodium Chloride) 100 mls @ 200 mls/hr IV Q6H [facility] Last Infusion: 08/25/24 15:21 Dose: Infused Documented By: JULIANE Doxycycline Hyclate 100 mg/ (Sodium Chloride) 250 mls @ 166.67 mls/hr IV Q12H [facility] Last Admin: 08/25/24 15:15 Dose: 166.67 mls/hr Documented By: JULIANE Lactated Ringer's (Lr) 1,000 mls @ 125 mls/hr IVCONT .Q8H [facility] Ketoconazole (Ketoconazole 2 % Shampoo 120 Ml Btl) 1 appl TOPICAL BID [facility]; Protocol Last Admin: 08/25/24 09:51 Dose: 1 appl Documented By: JULIANE Losartan Potassium (Losartan Potassium 50 Mg Tablet) 100 mg PO DAILY [facility]; Protocol Last Admin: 08/25/24 09:51 Dose: 100 mg Documented By: JULIANE Magnesium Hydroxide (Milk Of Magnesia 30 Ml Oral.Susp) 30 ml PO DAILY PRN PRN Reason: Constipation Melatonin (Melatonin 3 Mg Tablet) 6 mg PO BEDTIME PRN PRN Reason: Insomnia Multivitamins/Vitamin C (Multivitamin Tablet) 1 tab PO DAILY [facility] Last Admin: 08/25/24 09:51 Dose: 1 tab Documented By: JULIANE Omeprazole (Omeprazole 20 Mg Capsule.Dr) 20 mg PO BID@0630,1630 [facility] Last Admin: 08/25/24 05:31 Dose: 20 mg Documented By: TONIA Ondansetron HCl (Ondansetron Hcl 4 Mg/2 Ml Vial) 4 mg IVPUSH Q8H PRN PRN Reason: Nausea and Vomiting Quetiapine Fumarate (Quetiapine Fumarate 25 Mg Tablet) 25 mg PO BEDTIME [facility] Last Admin: 08/24/24 20:37 Dose: 25 mg Documented By: TONIA Sodium Chloride (0.9 % Sodium Chloride Flush 3 Ml Syringe) 3 ml IVFLUSH QSHIFT [facility] Last Admin: 08/25/24 15:57 Dose: Not Given Documented By: JULIANE Non-Admin Reason: IV Running Valproic Acid (Valproic Acid 250 Mg Capsule) 500 mg PO DAILY [facility] Last Admin: 08/25/24 09:50 Dose: 500 mg Documented By: JULIANE Vitamin D (Cholecalciferol (Vitamin D3) 25 Mcg Tablet) 50 mcg PO DAILY [facility] Last Admin: 08/25/24 09:50 Dose: 50 mcg Documented By: JULIANE Labs 08/25/24 05:16 08/25/24 05:16 Labs: Laboratory Results - last 24 hr 08/25/24 05:16 MCV 83.3 MCH 28.8 MCHC 34.6 RDW 12.6 Plt Count 153 L MPV 9.9 Absolute Nucleated RBC 0.000 Nucleated RBC % (auto) 0.0 Anion Gap 13 Estim Creat Clear Calc 65.3 Estimated GFR > 60 Random Glucose 85 Calcium 9.2 Microbiology Microbiology Results: Microbiology 08/23/24 12:07 Blood Culture - Preliminary Blood - Venous No growth after 48 hours. 08/23/24 14:24 Blood Culture - Preliminary Blood - Venous No growth after 24 hours. Assessment and Plan (1) Influenza A: Status: Acute (2) Viral sepsis: Status: Acute Plan 59/m year old male with PMH of CVA with spastic Hemiparesis, PUD, dysphagia, HTN here with Influenza A with viral sepsis, hypOtension Influeza with viral sepsis symptomatic treatment Tamiflu Fever, normal now after cooling blanket blood cultures pending, check UA. Hold Abx for now Tyelenol prn Hypotension d/t viral sepsis, LA normal--hypotension resolved with IVF IVF Dysphadia: Puree, honey thick liquis Diarrha ? Abx related, check cdif, gi panel HTN, hold bp meds Mood disorder Valprioc acid, Seroquel DVT PPx Lovenox Inpatient for at least 2 midnights for viral sepsis, hypotension needing IVF Quality Stroke Does the patient have a stroke diagnosis?: No VTE Prior VTE?: No VTE Risk Level:: Medical - moderate - high VTE Device Contraindication: N/A - Device Ordered VTE Drug Contraindication: N/A - Med Ordered
--- NOTE | 2024-08-25 17:55 | PC.NURSE ---
Patient's family requested to speak with the doctor, per patient was requesting to go home. Explained to that plan is to have PT evaluate, family advised patient is refusing to stay, provider notified.
== END 2024-08-25 18:00 | disposition home or self-care (01) | DRG 720 ==
LOC: HO.ED 15:06 → HO.EDOVER 16:22 → HO.S3 19:48
PROVIDERS: Hospitalist; Physician Assistant; Admitting Provider Internal Medicine; Emergency Provider Student in an Organized Health Care Education/Training Program; PCP Internal Medicine; Visit Provider Internal Medicine
DX: A41.89 Other specified sepsis (principal); I95.9 Hypotension, unspecified; I69.351 Hemiplegia and hemiparesis following cerebral infarction affecting right dominant side; J10.1 Influenza due to other identified influenza virus with other respiratory manifestations; I10 Essential (primary) hypertension; E86.0 Dehydration; I69.320 Aphasia following cerebral infarction; F39 Unspecified mood [affective] disorder; Z79.899 Other long term (current) drug therapy
CPT/HCPCS: 0241U; 36415; 71045; 71046; 80048; 80053; 81003; 83605; 83690; 85025; 85027; 87040; 87651; 93005; 99285; J0131; J1885; J2543; J7120

== ENCOUNTER → 2024-08-23 11:14 | Outpatient (BNV) | payer OTHER, SELFPAY | PROVIDERS: PCP Internal Medicine; Visit Provider Radiology Diagnostic Radiology | DX: I49.1 Atrial premature depolarization (principal); R00.0 Tachycardia, unspecified | CPT/HCPCS: 71046 ==

== ENCOUNTER 2024-08-23 16:00 | Outpatient (BNV) | payer OTHER, SELFPAY | END 2024-08-25 10:55 | PROVIDERS: Admitting Provider Internal Medicine; Emergency Provider Student in an Organized Health Care Education/Training Program; PCP Internal Medicine; Visit Provider Internal Medicine | DX: R00.0 Tachycardia, unspecified (principal); R94.31 Abnormal electrocardiogram [ECG] [EKG] | CPT/HCPCS: 93010 ==

== ENCOUNTER 2024-08-23 16:00 | Outpatient (BNV) | payer OTHER, SELFPAY | END 2024-08-24 15:15 | PROVIDERS: Admitting Provider Internal Medicine; Emergency Provider Student in an Organized Health Care Education/Training Program; PCP Internal Medicine; Visit Provider Internal Medicine | DX: R00.0 Tachycardia, unspecified (principal); R94.31 Abnormal electrocardiogram [ECG] [EKG]; I49.1 Atrial premature depolarization | CPT/HCPCS: 93010 ==

== ENCOUNTER 2024-08-23 16:00 | Outpatient (BNV) | payer OTHER, MEDICAID, SELFPAY | END 2024-08-24 14:00 | PROVIDERS: Admitting Provider Internal Medicine; Emergency Provider Student in an Organized Health Care Education/Training Program; PCP Internal Medicine; Visit Provider Radiology Diagnostic Radiology | DX: R06.02 Shortness of breath (principal) | CPT/HCPCS: 71045 ==

== ENCOUNTER → 2024-08-23 16:00 | Outpatient (BNV) | payer OTHER, MEDICAID, SELFPAY | PROVIDERS: Admitting Provider Internal Medicine; Emergency Provider Student in an Organized Health Care Education/Training Program; PCP Internal Medicine; Visit Provider Internal Medicine | DX: J10.1 Influenza due to other identified influenza virus with other respiratory manifestations (principal); A41.89 Other specified sepsis; B97.89 Other viral agents as the cause of diseases classified elsewhere | CPT/HCPCS: 99223; 99232 ==

== ENCOUNTER 2024-09-08 15:07 | Outpatient (AMB) | payer OTHER, SELFPAY ==
--- NOTE | 2024-09-08 15:22 | A.OFFVIS_ITS ---
Vital Signs 09/08/24 15:28 Height 5 ft 5 in BMI Reason not done Patient refused/unable BP 113/70 Blood Pressure Location Lt brachial Position Sitting Pulse 64 Comment Patient came in wheelchair Intake Visit Reasons: 6 month f.u Dysphagia Intake Note: Patient in office today in follow up of dysphagia. CC: Per patient's he was hospitalized for flu and low BP. She states that the patient continues having dysphagia but managing. [employer] L[employer] Required: No Accompanied by: Spouse Allergies No Known Allergies Allergy (Verified 09/08/24 15:31) HPI HPI 6 month f.u Dysphagia: Details: Assessment & Plan (1) Constipation: Code(s): K59.00 - Constipation, unspecified Category: Medical (2) Erosive esophagitis: Code(s): K22.10 - Ulcer of esophagus without bleeding Category: Medical (3) Oropharyngeal dysphagia: Code(s): R13.12 - Dysphagia, oropharyngeal phase Category: Medical Plan Nikky reardon translates per patient request Speech therapy report showing severe dysphagia and doubt about whether he can maintain good nutrition on a gel/honey thick liquid diet. I have ordered EGD marsha. He is now on omeprazole 20 mg twice a day which is likely a profile. Given the duodenal ulcers and the Barretts esophagus. He was on cimetidine in the past. Return office visit in 6 months Medications: Discontinued cimetidine Discontinued Reason: Doctor's Order 400 mg PO BEDTIME 30 tabs 6RF TODAY'S VISIT Nikky reardon translates per patient request HE had the EGD and his swallowing is at his baseline. He had a severe case of the Flu and was hospitalized for 3 days. He continues on his pantoprazole. ROV 6 mos. PFSH Medical History Esophageal ulcer Colon cancer screening Expressive aphasia History of stroke Spastic hemiparesis affecting dominant side Vitamin D deficiency Iron deficiency anemia Right hemiplegia Cerebrovascular accident (CVA) 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) Pure hypercholesterolemia Benign essential hypertension CVA (cerebral vascular accident) Surgical History History of esophagogastroduodenoscopy (EGD) Family History Other Family history non-contributory Social History Household Members: Spouse Housing: House Do you presently have visiting nurse or other home services: No Alcohol intake: former Patient Tobacco Use Status: Never used Tobacco e-Cigarette/Vaping Use: Never Used Second Hand Smoke Exposure: No Advance Directives Date on File: 08/23/24 service: No Current occupational status: disabled Cognitive needs: Yes (wheelchair) Hearing needs: No Vision needs: No Review of Systems Const Reports fatigue, Denies fever(s), Denies night sweats, Denies poor appetite and Denies weight loss ENT Reports Normal hearing present, Denies dental pain, Reports dysphagia, Denies hearing loss, Denies mouth pain, Denies odynophagia, Denies throat swelling, Denies tongue swelling and Reports other (Dentition adequate) Card Reports no additional complaints Resp Reports cough GI Details: Denies abdominal pain, Denies melena, Denies bloating, Denies hematochezia, Denies constipation, Denies GI cramping, Reports dysphagia, Denies excessive flatus, Denies early satiety, Reports heartburn, Denies diarrhea, Denies nausea, Denies odynophagia, Denies vomiting and Denies hematemesis Musc Reports abnormal gait and Reports atrophy Skin/Breast Denies pruritus, Denies lesions, Denies rash and Denies jaundice Neuro Reports Normal hearing present, Denies Abnormal speech present, Reports abnormal gait and Reports focal weakness Endo Reports fatigue Aller/Immun Denies throat swelling and Denies tongue swelling Physical Exam Vital Signs: Last Vital Signs Pulse 64 09/08/24 15:28 BP 113/70 09/08/24 15:28 Const General: cooperative, no acute distress, well developed and well groomed Nutritional Appearance: well nourished and thin Orientation/consciousness: oriented to person, oriented to place and oriented to time Limitations: No language barrier, wheelchair and other limitations HEENT Head: Yes normocephalic and Yes atraumatic Eyes General: appearance normal, both eyes and all related structures Pupils: Equal, round and reactive pupils present Neck Neck: Yes normal visual inspection and Yes no lymphadenopathy Thyroid: Thyroid normal Resp Effort & Inspection: normal respiratory effort and able to speak in complete sentences Auscultation: clear to auscultation bilaterally Cardio Rate: regular rate Rhythm: regular rhythm Heart sounds: Normal, physiologic split S2 sound present Peripheral pulses: radial pulses present and posterior tibial pulses present GI Inspection: No distended and No Abdominal panniculus present Palpation (GI): Soft to palpation, nontender, no guarding, not rigid and No hepatosplenomegaly present Percussion: Yes normal to percussion Auscultation: normal bowel sounds Rectal Exam - Male: Yes deferred Skin General skin exam: no rashes or lesions noted, turgor normal, skin not dry, no jaundice, No spider nevi and no striae Rashes: no rashes Nails: normal Neuro General: oriented to person, oriented to place and oriented to time Cranial nerves: Yes Equal, round and reactive pupils present and Yes Normal hearing present Speech: No Abnormal speech present Extrem General: Yes normal to inspection, No clubbing, No cyanosis and No edema Psych Appearance: grossly normal and well kempt Mental Status: mental status grossly normal Speech and movement: Mute speech present Affect: normal affect Attitude: cooperative Thought process: not confabulating and Other thought process findings present Thought content: other Insight: Limited insight present (Psych) Judgement: Limited judgement present (Psych) Assessment & Plan Assessment & Plan (1) Erosive esophagitis: Code(s): K22.10 - Ulcer of esophagus without bleeding Category: Medical Plan [facility] # translates per patient request HE had the EGD and his swallowing is at his baseline. He had a severe case of the Flu and was hospitalized for 3 days. He continues on his pantoprazole. ROV 6 mos. Medications: New omeprazole 20 mg PO BID@0630,1630 60 caps 12RF Coding Level of Care Code Est Pt Level 3 (76722) Diagnoses Erosive esophagitis K22.10
[2024-09-08 15:28] VITALS: BP 113/70; PULSE 64
== END 2024-09-08 15:45 | disposition home or self-care (01) ==
LOC: HO.HGI 15:07
PROVIDERS: PCP Internal Medicine; Visit Provider Nurse Practitioner
DX: K22.10 Ulcer of esophagus without bleeding (principal)
CPT/HCPCS: 99213

== ENCOUNTER → 2024-09-08 15:07 | Outpatient (BNVA) | payer OTHER, SELFPAY | PROVIDERS: PCP Internal Medicine; Visit Provider Nurse Practitioner | DX: K59.00 Constipation, unspecified (principal); R13.12 Dysphagia, oropharyngeal phase; K22.10 Ulcer of esophagus without bleeding | CPT/HCPCS: 99212 ==

== ENCOUNTER 2024-10-19 16:03 | Outpatient (AMB) | payer OTHER, SELFPAY ==
[2024-10-19 16:06] VITALS: BP 116/80; PULSE 78; O2SAT 97
--- NOTE | 2024-10-19 16:06 | MHC.PC.OV ---
Vital Signs 10/19/24 16:06 Height 5 ft 5 in BMI Reason not done Patient refused/unable BP 116/80 Blood Pressure Location Lt brachial Position Sitting Pulse 78 Pulse Source Pulse Oximeter Pulse Oximetry (%) 97 Oxygen Delivery Method Room Air Intake Visit Reasons: 4 month f/u Rug Shampooer Required: No Accompanied by: Self / Same As Patient Allergies No Known Allergies Allergy (Verified 10/19/24 16:54) Medication List - Last Reconciled 10/19/24 by Raman Torrez MD albuterol sulfate 90 mcg/actuation 2 puffs inhalation Q6H PRN amlodipine 10 mg PO DAILY atorvastatin 10 mg PO BEDTIME cetirizine (Zyrtec) 10 mg PO DAILY PRN cholecalciferol (vitamin D3) 50 mcg PO DAILY 90 days dextromethorphan-guaifenesin 10-100 mg/5 mL 10 mL PO Q4H PRN ketoconazole 2% 1 appl topical BID [LIGHTWEIGHT FOLDING WHEELCHAIR (medium) As directed] losartan 100 mg PO DAILY 90 days omeprazole 20 mg PO BID@0630,1630 quetiapine 25 mg PO BEDTIME [ROLLATOR with SEAT As directed] valproic acid 500 mg (2 x 250 mg) PO DAILY vitamin B complex 1 cap PO DAILY Tobacco use date assessed: 10/19/24 Dental Screening Dental Screen Date: 10/19/24 Did you have a dental visit in the last 12 months?: Yes Did you have a dental problem in the last 6 months where you did not have access to dental care?: No Was dental information given to patient?: Patient has dentist HPI 4 month f/u HPI Details Patient comes in today for his follow up visit States that he currently feels okay He was admitted to [facility] for a few days back in August 2024 when he presented to the ER with worsening SOB and tested positive for influenza A He required some IV fluids at the time due to a significant drop in his blood pressure when he was in the ER He was eventually sent home with Rx for Oseltamivir when his condition stabilized with medical management over a couple of days His states that she still helps him use his Albuterol inhaler at night when needed and this seems to calm down a lot of his on and off coughing in the middle of the night - is requesting for a refill of his Albuterol inhaler He was also seen by GI for follow up of his dysphagia a few weeks ago His states that he still has dysphagia but it has improved significantly with BID dosing of his PPI Rx, which was started last year due to (+) 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 and 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 Patient denies any headaches or dizziness Denies any chest pains or increased SOB No nausea/vomiting, no abdominal pain No change in bowel habits noted His states that they were not able to help him go and get his follow up labs done prior to his appointment today [facility] Medical History Esophageal ulcer Colon cancer screening Expressive aphasia History of stroke Spastic hemiparesis affecting dominant side Vitamin D deficiency Iron deficiency anemia Right hemiplegia Cerebrovascular accident (CVA) 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) Pure hypercholesterolemia Benign essential hypertension CVA (cerebral vascular accident) Surgical History History of esophagogastroduodenoscopy (EGD) Family History Other Family history non-contributory Social History Household Members: Spouse Housing: House Do you presently have visiting nurse or other home services: No Alcohol intake: former Patient Tobacco Use Status: Never used Tobacco e-Cigarette/Vaping Use: Never Used Second Hand Smoke Exposure: No Advance Directives Date on File: 08/23/24 service: No Current occupational status: disabled Current occupational exposures/hazards: No Cognitive needs: Yes (wheelchair) Hearing needs: No Vision needs: No Questionnaire PHQ-9 Over the last 2 weeks, how often have you been bothered by any of the following problems? 1. Little interest or pleasure in doing things: not at all 2. Feeling down, depressed, or hopeless: not at all 3. Trouble falling or staying asleep, or sleeping too much: not at all 4. Feeling tired or having little energy: not at all 5. Poor appetite or overeating: not at all 6. Feeling bad about yourself - or that you are a failure or have let yourself or your family down: not at all 7. Trouble concentrating on things, such as reading the newspaper or watching television: several days 8. Moving or speaking so slowly that other people could have noticed. Or the opposite - being so fidgety or restless that you have been moving around a lot more than usual: several days 9. Thoughts that you would be better off or of hurting yourself in some way: not at all Total score: 2 Depression Screening Interpretation: Negative Depression Screening Done: Yes 50792 - PHQ-9 Billing: Yes Source: Developed by Drs. Feng Alcaraz, Rubia Gavlan, Sulaiman Daniel and colleagues, with an educational rachele from [employer]. Thrive Questionnaire Date Thrive assessed: 10/19/24 I am a: Patient What is your living situation today?: I have a steady place to live Within the past 12 months, did the food you bought not last and you didn't have the money to get more?: I choose not to answer this question Within the past 12 months, did you worry whether your food would run out before you got money to buy more?: I choose not to answer this question Do you have trouble paying for medicines?: I choose not to answer this question Do you have trouble getting transportation to medical appointments?: No Do you have trouble paying your heating and electricity bill?: No Do you have trouble taking care of your child, family member or friend?: I choose not to answer this question Do you have trouble with day-to-day activities such as bathing, preparing meals, shopping, managing finances, etc.?: Yes Are you currently unemployed and looking for a job?: I choose not to answer this question Are you interested in more education?: No Please select the resources that you would like help with: None Currently or been in a relationship where the following occur: I choose not to answer THRIVE Score: 0 AUDIT C Alcohol Use Questionnaire (AUDIT-C) 1. How often do you have a drink containing alcohol?: Never 3. How often do you have six or more drinks on one occasion?: Never Total Score: 0 Score Reviewed/Action Taken: Yes JAREK-7 AMB Questionnaire JAREK-7 Date JAREK - 7 assessed: 10/19/24 Feeling nervous, anxious, or on edge: 0 = Not at all Not being able to stop or control worryin = Not at all Worrying too much about different things: 0 = Not at all Trouble relaxin = Not at all Being so restless that it is hard to sit still: 0 = Not at all Becoming easily annoyed or irritable: 0 = Not at all Feeling afraid as if something awful might happen: 0 = Not at all Total JAREK-7 score (0-4 normal; 5-9 mild; 10-14 moderate; 15-21 severe): 0 Source: Developed by Drs. Feng Alcaraz, Rubia Galvan, Sulaiman Daniel and colleagues, with an educational rachele from [employer]. Review of Systems Const Denies chills, Denies fatigue, Denies fever(s) and Denies headache(s) ENT Reports dysphagia ((+) some improvement with Rx and with speech & swallow therapy), Denies dizziness, Denies otalgia, Denies headache(s), Denies neck pain, Denies odynophagia and Denies sore throat Card Denies chest pain, Denies palpitations and Denies dyspnea Resp Denies chest congestion, Denies cough and Denies dyspnea GI Denies abdominal pain, Denies constipation, Reports dysphagia ((+) some improvement with Rx and with speech & swallow therapy), Denies dyspepsia, Denies heartburn, Denies diarrhea, Denies nausea, Denies odynophagia and Denies vomiting Denies difficulty urinating, Denies dysuria, Denies nocturia and Denies urinary frequency Musc Denies back pain and Denies neck pain Skin/Breast Denies rash Neuro Details: (+) right-sided weakness (S/P CVA) Reports Abnormal speech present (slurred speech due to his CVA), Denies dizziness and Denies headache(s) Psych Reports depression Endo Denies fatigue and Denies palpitations Physical exam (Primary Care) Vital Signs: Last Vital Signs Pulse 78 10/19/24 16:06 BP 116/80 10/19/24 16:06 Pulse Ox 97 10/19/24 16:06 Oxygen Delivery Method Room Air 10/19/24 16:06 Tobacco/Smoking Status: Tobacco use Status Tobacco use date assessed 10/19/24 10/19/24 16:17 Patient Tobacco Use Status Never used Tobacco 10/19/24 16:17 e-Cigarette/Vaping Use Never Used 10/19/24 16:17 PHQ-9: PHQ-9 Score PHQ-9: Total score 2 10/19/24 16:59 Depression Screening Interpretation: Negative Thrive Assessment: Date of Thrive Assessment Date Thrive assessed 10/19/24 10/19/24 16:17 Currently or been in a relationship where the following occur: I choose not to answer Const Other: Information is obtained partially through patient's as he is limited in his ability to communicate due to his aphasia and slurred speech General: no acute distress and alert Limitations: wheelchair HENMT Ears: TM's normal bilaterally and EAC's normal Throat: Yes posterior oropharynx normal and Yes tonsils normal (no TP congestion noted) Neck Neck: Yes supple and No lymphadenopathy Thyroid: Thyroid normal Resp Auscultation: clear to auscultation bilaterally, no rales and no wheezes Cardio Rate: regular rate Rhythm: regular rhythm Heart sounds: no murmurs GI Palpation (GI): Soft to palpation and nontender Auscultation: normal bowel sounds General: Yes no CVA tenderness Back/Spine/Pelvis Back: no CVA tenderness Thoracic/Lumbar Spine: No lumbar spinal tenderness Skin Rashes: no rashes Neuro Other: (+) right hemiparesis and (+) aphasia Speech: Abnormal speech present (slurred speech due to his CVA) Extrem General: No clubbing, No cyanosis and Yes edema (1+ bipedal pitting edema ) Coding Level of Care Code Est Pt Level 4 (62370) Diagnoses Cerebrovascular accident (CVA), unspecified mechanism I63.9 CVA mechanism: unspecified Right hemiplegia G81.91 Ulcer of esophagus without bleeding K22.10 Esophageal ulcer bleeding: without bleeding Aspiration of food, initial encounter T17.928A Encounter type: initial encounter Benign essential hypertension I10 Pure hypercholesterolemia E78.00 Impaired fasting glucose R73.01 Renal insufficiency N28.9 Iron deficiency anemia, unspecified iron deficiency anemia type D50.9 Iron deficiency anemia type: unspecified iron deficiency Vitamin D deficiency E55.9 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 Additional Codes PHQ-9 - 20166 - PHQ-9 Billing: Yes ([id number]) Assessment & Plan Assessment & Plan (1) Cerebrovascular accident (CVA): Comment: x3 (2002, 2005 and 2008) Code(s): I63.9 - Cerebral infarction, unspecified Category: Medical Qualifiers: CVA mechanism: unspecified Qualified Code(s): I63.9 - Cerebral infarction, unspecified Plan: S/P CVA a few years ago with residual right hemiparesis and aphasia/slurred speech states that patient's overall mobility and gait quality have improved a lot with physical therapy in the past (2) Right hemiplegia: Code(s): G81.91 - Hemiplegia, unspecified affecting right dominant side Category: Medical Plan: Patient's overall mobility and gait quality have reportedly improved a lot with physical and occupational therapy and will continue with PT/OT as scheduled or as needed He was also referred to physiatry for further management previously when his indicated that his right-sided weakness has gotten worse and was recommended for physical therapy again (3) Esophageal ulcer: Comment: EGD done 03/2022 Code(s): K22.10 - Ulcer of esophagus without bleeding Category: Medical Qualifiers: Esophageal ulcer bleeding: without bleeding Qualified Code(s): K22.10 - Ulcer of esophagus without bleeding Plan: Esophageal biopsy done back in March 2022 revealed (+) cardiac-type mucosa with mild chronic inactive inflammation and no intestinal metaplasia seen. Lesions are polypoid, eroded and ulcerated squamous mucosa and fragment of ulcer bed but no malignancy is identified Patient reported (+) improvement of his symptoms of dysphagia and choking sensation over the next few months and he has been eating very well since, per his Continue Omeprazole 20 mg BID He was also started on Carafate but he disliked the taste of the medication and found it constipating and self-discontinued the medication after a while He was supposedly being scheduled for repeat EGD sometime last spring (2022) but this never occurred He was then seen by GI a few months later and was reportedly advised that since his symptoms have improved a lot, he can hold off on repeat EGD at the time and to just follow up again in 6 months unless symptoms flare up or recur He eventually underwent repeat EGD in October 2023, which revealed findings of Sotelo's esophagitis, multiple duodenal ulcers, hiatal hernia and esophageal nodules. Biopsies done showed no dysplasia and H. pylori came back negative Follow up with GI as scheduled - he will likely need follow up EGD again in 1 to 2 years (4) Aspiration of food: Code(s): T17.928A - Food in respiratory tract, part unspecified causing other injury, initial encounter Category: Medical Qualifiers: Encounter type: initial encounter Qualified Code(s): T17.928A - Food in respiratory tract, part unspecified causing other injury, initial encounter Plan: Modified barium swallow done last year revealed (+) martita laryngeal aspiration with thin barium and barium-coated puree He has been referred for swallowing evaluation and training/therapy, which he completed States that his issues with swallowing has improved a lot with swallow therapy Repeat modified barium swallow revealed trace laryngeal penetration was seen with puree consistency barium and aspiration was observed with thin barium He was seen by speech therapy for further recommendations and was recommended a pureed diet (National Dysphagia Diet Level I) with nectar thick liquids. He will continue to require 1:1 feeding and close monitoring given his risk of aspiration Patient and his were also reportedly educated on the appropriate feeding strategies to help maximize safety (5) Benign essential hypertension: Code(s): I10 - Essential (primary) hypertension Category: Medical Plan: Reinforced low sodium diet - goal is systolic BP of at least 130 mm or less Continue Amlodipine 10 mg QD, Losartan 100 mg QD and Clonidine 0.1 mg BID (6) Pure hypercholesterolemia: Code(s): E78.00 - Pure hypercholesterolemia, unspecified Category: Medical Plan: He was not able to get his follow up labs done prior to his appointment today Reinforced low-cholesterol diet Continue Atorvastatin 10 mg QD for now Will have him recheck his labs and fasting lipids again in 4 months for follow up - will just have him use his current orders (updated) for his next lab draw (7) Impaired fasting glucose: Code(s): R73.01 - Impaired fasting glucose Category: Medical Plan: Patient's FBS was normal at 91 mg/dl on his labs done a few months ago His HgbA1c was again normal at 5.2% when checked previously; in-office HgbA1c was also normal at 5.1% a few months ago Reinforced low calorie/low carb diet Will continue to monitor his FBS regularly (8) Renal insufficiency: Code(s): N28.9 - Disorder of kidney and ureter, unspecified Category: Medical Plan: Patient's serum creatinine and GFR have both declined on his previous labs to early stage 3 CKD numbers but his more recent numbers have improved again back to normal He and his have been reminded to maintain adequate hydration Will continue to monitor his labs and renal function regularly and recheck them in 4 months for follow up (9) Iron deficiency anemia: Code(s): D50.9 - Iron deficiency anemia, unspecified Category: Medical Qualifiers: Iron deficiency anemia type: unspecified iron deficiency Qualified Code(s): D50.9 - Iron deficiency anemia, unspecified Plan: Corrected Will continue to monitor his CBC periodically (10) Vitamin D deficiency: Code(s): E55.9 - Vitamin D deficiency, unspecified Category: Medical Plan: Continue Vitamin D3 2000 units QD (11) 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): Code(s): I63.9 - Cerebral infarction, unspecified; F06.30 - Mood disorder due to known physiological condition, unspecified Category: Medical Plan: Continue Valproic Acid 500 mg Q AM and Quetiapine?25 mg Q HS Due to his increasing moodiness, per his , he was referred to Psychiatry for further evaluation and management Plan Follow up in 4 months Orders: Orders TSH reflex Free T4 02/13/25 E78.00 - Pure hypercholesterolemia, unspecified Vitamin D 25-OH Total 02/13/25 E55.9 - Vitamin D deficiency, unspecified UA CC w/rflx Micro + Cult 02/13/25 R30.0 - Dysuria Medications: Changed From albuterol sulfate 90 mcg/actuation 2 puffs inhalation Q6H PRN 6.7 grams 0RF shortness of breath or wheezing To Ventolin HFA 90 mcg/actuation (albuterol sulfate) 2 puffs inhalation Q6-8H 30 days PRN 18 grams 3RF shortness of breath or wheezing NS
== END 2024-10-19 17:02 | disposition home or self-care (01) ==
LOC: HO.HMCH 16:03
PROVIDERS: PCP Internal Medicine; Visit Provider Internal Medicine
DX: I63.9 Cerebral infarction, unspecified (principal); G81.91 Hemiplegia, unspecified affecting right dominant side; K22.10 Ulcer of esophagus without bleeding; T17.928A Food in respiratory tract, part unspecified causing other injury, initial encounter; I10 Essential (primary) hypertension; E78.00 Pure hypercholesterolemia, unspecified; R73.01 Impaired fasting glucose; N28.9 Disorder of kidney and ureter, unspecified; D50.9 Iron deficiency anemia, unspecified; E55.9 Vitamin D deficiency, unspecified; F06.30 Mood disorder due to known physiological condition, unspecified

== ENCOUNTER → 2024-10-19 16:03 | Outpatient (BNVA) | payer OTHER, SELFPAY | PROVIDERS: PCP Internal Medicine; Visit Provider Internal Medicine | DX: I69.351 Hemiplegia and hemiparesis following cerebral infarction affecting right dominant side (principal); I69.320 Aphasia following cerebral infarction; K22.10 Ulcer of esophagus without bleeding; T17.928A Food in respiratory tract, part unspecified causing other injury, initial encounter; I10 Essential (primary) hypertension; R73.01 Impaired fasting glucose; N28.9 Disorder of kidney and ureter, unspecified; D50.9 Iron deficiency anemia, unspecified; E55.9 Vitamin D deficiency, unspecified; F06.30 Mood disorder due to known physiological condition, unspecified; Z79.899 Other long term (current) drug therapy | CPT/HCPCS: 96127; 99212 ==

== ENCOUNTER 2025-02-22 07:27 | Outpatient (REF) | payer OTHER, SELFPAY ==
[2025-02-22 07:49] LABS: MANUAL DIFF FLAG NO
[2025-02-22 07:51] LABS: Hematocrit 44.3 % (42.0-52.0); Hemoglobin 15.9 g/dl (14.0-18.0); Imm Gran Abs Auto 0.02 X10*3/uL (0.00-0.03); Imm Gran Pct Auto 0.4 % (0.0-0.4); Lymphocytes Absolute Auto 1.3 X10*3/uL (1.2-4.9); Mean Corpuscular HGB Conc 35.9 g/dl (31.0-36.0); Mean Corpuscular Hemoglobin 29.3 pg (27.0-33.0); Mean Corpuscular Volume 81.6 fL (80.0-98.0); NRBC Abs Auto 0.000 X10*3/uL (0.0-0.012); NRBC Pct Auto 0.0 /100WBC (0.0-0.2); Platelet Count 189 X10*3/uL (160-400); Red Blood Count 5.43 X10*6/uL (4.60-5.80); White Blood Count 5.4 X10*3/uL (4.8-10.8)
[2025-02-22 08:01] LABS: Hemoglobin A1C 153.1306 umol/L; Total Hemoglobin (HGBA1C) 4146.2781 umol/L
[2025-02-22 08:19] LABS: Alanine Aminotransferase 22 U/L (0-40); Albumin Level 4.1 g/dL (3.5-5.0); Alkaline Phosphatase 88 U/L (39-117); Anion Gap 13 (12-20); Aspartate Amino Transferase 18 U/L (5-37); Blood Urea Nitrogen 9 mg/dL (9-16); Calcium 8.9 mg/dL (8.4-10.2); Carbon Dioxide 26 mmol/L (22-29); Chloride 108 mmol/L (96-108); Cholesterol 162 mg/dL (<200); Estimated Glomerular Filt Rate 58; HDL Cholesterol 39 mg/dL (>40); Potassium 3.6 mmol/L (3.3-5.1); Sodium 143 mmol/L (135-145); Total Protein 6.9 g/dL (6.5-8.0); Triglycerides 137 mg/dL (<150)
[2025-02-22 09:17] LABS: Appearance Urine Clear; Glucose Urine UA Negative (Negative); PH 6.0 (5.0-9.0); Specific Gravity - Urine 1.020 (1.005-1.025); UMIC TRIGGER UACC YES
== END 2025-02-22 07:28 | disposition home or self-care (01) ==
LOC: HO.LAB 07:27
PROVIDERS: PCP Internal Medicine; Visit Provider Internal Medicine
DX: R73.01 Impaired fasting glucose (principal); R30.0 Dysuria; E78.00 Pure hypercholesterolemia, unspecified; D64.9 Anemia, unspecified; E55.9 Vitamin D deficiency, unspecified
CPT/HCPCS: 36415; 80053; 80061; 81001; 81003; 82306; 83036; 84443; 85025

== ENCOUNTER 2025-02-24 16:15 | Outpatient (AMB) | payer MEDICAID, SELFPAY ==
[2025-02-24 16:21] VITALS: BP 116/78; PULSE 63; O2SAT 98
--- NOTE | 2025-02-24 16:21 | A.OFFPC_ITS ---
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 Required: No Accompanied by: Self / Same As Patient Allergies No Known Allergies Allergy (Verified 02/24/25 17:10) Medication List - Last Reconciled 02/24/25 by Raman Torrez MD amlodipine 10 mg PO DAILY atorvastatin 10 mg PO BEDTIME cetirizine (Zyrtec) 10 mg PO DAILY PRN cholecalciferol (vitamin D3) 50 mcg PO DAILY 90 days dextromethorphan-guaifenesin 10-100 mg/5 mL 10 mL PO Q4H PRN ketoconazole 2% 1 appl topical BID [LIGHTWEIGHT FOLDING WHEELCHAIR (medium) As directed] losartan 100 mg PO DAILY 90 days omeprazole 20 mg PO BID@0630,1630 quetiapine 25 mg PO BEDTIME [ROLLATOR with SEAT As directed] valproic acid 500 mg (2 x 250 mg) PO DAILY Ventolin HFA 90 mcg/actuation (albuterol sulfate) 2 puffs inhalation Q6-8H PRN 30 days NS vitamin B complex 1 cap PO DAILY Tobacco use date assessed: 02/24/25 Dental Screening Dental Screen Date: 02/24/25 Did you have a dental visit in the last 12 months?: Yes Did you have a dental problem in the last 6 months where you did not have access to dental care?: No Was dental information given to patient?: Patient has dentist HPI 4 Months HPI Details Patient comes in today for his follow-up visit States that he feels okay He denies any headaches or dizziness Denies any chest pains, no shortness of breath No nausea/vomiting, no abdominal pain No change in bowel habits noted His would like to get a referral for patient to go back to physical therapy again to help improve his gait - states that he improved a lot with physical therapy earlier this year but his gait and stability seems to have declined again lately They are also requesting for a prescription for a shower chair as well as adult pull-ups, which patient uses occasionally for incontinence mostly when he is going out He had his follow-up labs done a couple of days ago - to discuss his results [facility] Medical History Esophageal ulcer Colon cancer screening Expressive aphasia History of stroke Spastic hemiparesis affecting dominant side Vitamin D deficiency Iron deficiency anemia Right hemiplegia Cerebrovascular accident (CVA) 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) Pure hypercholesterolemia Benign essential hypertension CVA (cerebral vascular accident) Surgical History History of esophagogastroduodenoscopy (EGD) Family History Other Family history non-contributory Social History Household Members: Spouse Housing: House Do you presently have visiting nurse or other home services: No Alcohol intake: former Patient Tobacco Use Status: Never used Tobacco e-Cigarette/Vaping Use: Never Used Second Hand Smoke Exposure: No Advance Directives Date on File: 08/23/24 service: No Current occupational status: disabled Current occupational exposures/hazards: No Cognitive needs: Yes (wheelchair) Hearing needs: No Vision needs: No Questionnaire PHQ-9 Over the last 2 weeks, how often have you been bothered by any of the following problems? Depression Screening Interpretation: Negative Depression Screening Done: Yes Source: Developed by Drs. Feng Alcaraz, Rubia Galvan, Sulaiman Daniel and colleagues, with an educational rachele from [employer]. Thrive Questionnaire Date Thrive assessed: 02/24/25 I am a: Patient What is your living situation today?: I have a steady place to live Within the past 12 months, did the food you bought not last and you didn't have the money to get more?: I choose not to answer this question Within the past 12 months, did you worry whether your food would run out before you got money to buy more?: I choose not to answer this question Do you have trouble paying for medicines?: I choose not to answer this question Do you have trouble getting transportation to medical appointments?: No Do you have trouble paying your heating and electricity bill?: No Do you have trouble taking care of your child, family member or friend?: I choose not to answer this question Do you have trouble with day-to-day activities such as bathing, preparing meals, shopping, managing finances, etc.?: Yes Are you currently unemployed and looking for a job?: I choose not to answer this question Are you interested in more education?: No Please select the resources that you would like help with: None Currently or been in a relationship where the following occur: I choose not to answer THRIVE Score: 0 AUDIT C Alcohol Use Questionnaire (AUDIT-C) 1. How often do you have a drink containing alcohol?: Never 3. How often do you have six or more drinks on one occasion?: Never Total Score: 0 Score Reviewed/Action Taken: Yes JAREK-7 AMB Questionnaire JAREK-7 Date JAREK - 7 assessed: 10/19/24 Source: Developed by Drs. Feng Alcaraz, Rubia Galvan, Sulaiman Daniel and colleagues, with an educational rachele from [employer]. Review of Systems Const Denies chills, Denies fatigue, Denies fever(s) and Denies headache(s) ENT Reports dysphagia ((+) some improvement with Rx and with speech & swallow therapy), Denies dizziness, Denies otalgia, Denies headache(s), Denies neck pain, Denies odynophagia and Denies sore throat Card Denies chest pain, Denies palpitations and Denies dyspnea Resp Denies chest congestion, Denies cough and Denies dyspnea GI Denies abdominal pain, Denies constipation, Reports dysphagia ((+) some improvement with Rx and with speech & swallow therapy), Denies dyspepsia, Denies heartburn, Denies diarrhea, Denies nausea, Denies odynophagia and Denies vomiting Denies difficulty urinating, Denies dysuria, Denies nocturia, Denies urinary frequency and Reports urinary incontinence (occasionally, mostly when going out and has no immediate restroom access) Musc Denies back pain and Denies neck pain Skin/Breast Denies rash Neuro Details: (+) right-sided weakness (S/P CVA) Reports Abnormal speech present (slurred speech due to his CVA), Denies dizziness and Denies headache(s) Psych Reports depression Endo Denies fatigue and Denies palpitations Physical exam (Primary Care) Vital Signs: Last Vital Signs Pulse 63 02/24/25 16:21 BP 116/78 02/24/25 16:21 Pulse Ox 98 02/24/25 16:21 Oxygen Delivery Method Room Air 02/24/25 16:21 Tobacco/Smoking Status: Tobacco use Status Tobacco use date assessed 02/24/25 02/24/25 16:28 Patient Tobacco Use Status Never used Tobacco 02/24/25 16:28 e-Cigarette/Vaping Use Never Used 02/24/25 16:28 Depression Screening Interpretation: Negative Thrive Assessment: Date of Thrive Assessment Date Thrive assessed 02/24/25 02/24/25 16:28 Currently or been in a relationship where the following occur: I choose not to answer Const Other: Information is obtained partially through patient's as he is limited in his ability to communicate due to his aphasia and slurred speech General: no acute distress and alert Limitations: wheelchair HENMT Ears: TM's normal bilaterally and EAC's normal Throat: Yes posterior oropharynx normal and Yes tonsils normal (no TP congestion noted) Neck Neck: Yes supple and No lymphadenopathy Thyroid: Thyroid normal Resp Auscultation: clear to auscultation bilaterally, no rales and no wheezes Cardio Rate: regular rate Rhythm: regular rhythm Heart sounds: no murmurs GI Palpation (GI): Soft to palpation and nontender Auscultation: normal bowel sounds General: Yes no CVA tenderness Back/Spine/Pelvis Back: no CVA tenderness Thoracic/Lumbar Spine: No lumbar spinal tenderness Skin Rashes: no rashes Neuro Other: (+) right hemiparesis and (+) aphasia Speech: Abnormal speech present (slurred speech due to his CVA) Extrem General: No clubbing, No cyanosis and Yes edema (1+ bipedal pitting edema ) Results Reviewed Results Reviewed: Laboratory Tests 02/22/25 02/22/25 07:43 07:47 WBC 5.4 Hgb 15.9 Hct 44.3 Plt Count 189 Sodium 143 Potassium 3.6 Creatinine 1.26 Estimated GFR 58 Fasting Glucose 94 Hemoglobin A1c % 5.5 Calcium 8.9 AST 18 ALT 22 Triglycerides 137 Cholesterol 162 LDL Cholesterol, Calc 96 HDL Cholesterol 39 L 25-OH Vitamin D Total 55.9 TSH 2.63 Ur Specific [place] 1.020 Urine Protein 100 (2+) H Urine Glucose (UA) Negative Urine Blood Negative Urine Nitrite Negative Ur Leukocyte Esterase Negative Coding Level of Care Code Est Pt Level 4 (38820) Diagnoses Cerebrovascular accident (CVA), unspecified mechanism I63.9 CVA mechanism: unspecified Right hemiplegia G81.91 Ulcer of esophagus without bleeding K22.10 Esophageal ulcer bleeding: without bleeding Aspiration of food, initial encounter T17.928A Encounter type: initial encounter Benign essential hypertension I10 Pure hypercholesterolemia E78.00 Impaired fasting glucose R73.01 Renal insufficiency N28.9 Iron deficiency anemia, unspecified iron deficiency anemia type D50.9 Iron deficiency anemia type: unspecified iron deficiency Vitamin D deficiency E55.9 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 Assessment & Plan Assessment & Plan (1) Cerebrovascular accident (CVA): Comment: x3 (2002, 2005 and 2008) Code(s): I63.9 - Cerebral infarction, unspecified Category: Medical Qualifiers: CVA mechanism: unspecified Qualified Code(s): I63.9 - Cerebral infarction, unspecified Plan: S/P CVA years ago with residual right hemiparesis and aphasia/slurred speech states that patient's overall mobility and gait quality have improved a lot with physical therapy in the past and she is currently requesting for physical therapy again as patient is gait and stability appears to be declining recently Per request, will also provide them with Rx for a shower chair and adult pull ups (2) Right hemiplegia: Code(s): G81.91 - Hemiplegia, unspecified affecting right dominant side Category: Medical Plan: Patient's overall mobility and gait quality have reportedly improved a lot with physical and occupational therapy and will continue with PT/OT as scheduled or as needed He was also referred to physiatry for further management previously when his indicated that his right-sided weakness has gotten worse and was again recommended for physical therapy - they are currently requesting for PT referral again, which is placed today (3) Esophageal ulcer: Comment: EGD done 03/2022 Code(s): K22.10 - Ulcer of esophagus without bleeding Category: Medical Qualifiers: Esophageal ulcer bleeding: without bleeding Qualified Code(s): K22.10 - Ulcer of esophagus without bleeding Plan: Esophageal biopsy done back in March 2022 revealed (+) cardiac-type mucosa with mild chronic inactive inflammation and no intestinal metaplasia seen. Lesions are polypoid, eroded and ulcerated squamous mucosa and fragment of ulcer bed but no malignancy is identified Patient reported (+) improvement of his symptoms of dysphagia and choking sensation over the next few months and he has been eating very well since with hardly any recurrence of his symptoms, per his Continue Omeprazole 20 mg BID He was also started on Carafate but he disliked the taste of the medication and found it constipating and self-discontinued the medication after a while He was supposedly being scheduled for repeat EGD sometime back in the spring but this never occurred He was then seen by GI a few months later and was reportedly advised that since his symptoms have improved a lot, he can hold off on repeat EGD at the time and to just follow up again in 6 months unless symptoms flare up or recur He eventually underwent repeat EGD in October 2023, which revealed findings of Sotelo's esophagitis, multiple duodenal ulcers, hiatal hernia and esophageal nodules. Biopsies done showed no dysplasia and H. 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 (4) Aspiration of food: Code(s): T17.928A - Food in respiratory tract, part unspecified causing other injury, initial encounter Category: Medical Qualifiers: Encounter type: initial encounter Qualified Code(s): T17.928A - Food in respiratory tract, part unspecified causing other injury, initial encounter Plan: Modified barium swallow done last year revealed (+) martita laryngeal aspiration with thin barium and barium-coated puree He has been referred for swallowing evaluation and training/therapy, which he completed States that his issues with swallowing has improved a lot with swallow therapy Repeat modified barium swallow revealed trace laryngeal penetration seen with puree consistency barium and aspiration was observed with thin barium Speech therapy recommended a pureed diet (National Dysphagia Diet Level I) with nectar thick liquids. He will continue to require 1:1 feeding and close monitoring given his risk of aspiration Patient and his were also reportedly educated on the appropriate feeding strategies to help maximize patient's safety (5) Benign essential hypertension: Code(s): I10 - Essential (primary) hypertension Category: Medical Plan: Reinforced low sodium diet - goal is systolic BP of at least 130 mm or less Continue Amlodipine 10 mg QD, Losartan 100 mg QD and Clonidine 0.1 mg BID (6) Pure hypercholesterolemia: Code(s): E78.00 - Pure hypercholesterolemia, unspecified Category: Medical Plan: Results of his labs done a couple of days ago reviewed and discussed with patient and his - his cholesterol levels are at or near goal Reinforced low-cholesterol diet Continue Atorvastatin 10 mg QD Will have him recheck his labs and fasting lipids again in 4 months for follow up (7) Impaired fasting glucose: Code(s): R73.01 - Impaired fasting glucose Category: Medical Plan: Patient's FBS was normal at 94 mg/dl on his labs done a couple of days ago; HgbA1c was also normal at 5.5% on his recent labs His HgbA1c was also normal at 5.2% and 5.1% when previously checked Reinforced low calorie/low carb diet Will continue to monitor his FBS regularly (8) Renal insufficiency: Code(s): N28.9 - Disorder of kidney and ureter, unspecified Category: Medical Plan: Patient's renal function remained stable on his recent labs - he current appears to be somewhere in CKD stage 2 He and his have been reminded to try to maintain adequate hydration as much as possible Will continue to monitor his labs and renal function regularly (9) Iron deficiency anemia: Code(s): D50.9 - Iron deficiency anemia, unspecified Category: Medical Qualifiers: Iron deficiency anemia type: unspecified iron deficiency Qualified Code(s): D50.9 - Iron deficiency anemia, unspecified Plan: Corrected Will continue to monitor his CBC periodically (10) Vitamin D deficiency: Code(s): E55.9 - Vitamin D deficiency, unspecified Category: Medical Plan: Continue Vitamin D3 2000 units QD (11) 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): Code(s): I63.9 - Cerebral infarction, unspecified; F06.30 - Mood disorder due to known physiological condition, unspecified Category: Medical Plan: Continue Valproic Acid 500 mg Q AM and Quetiapine?25 mg Q HS Due to his increasing moodiness, per his , he was referred to Psychiatry for further evaluation and management Plan Follow up in 4 months Orders: Orders Complete Blood Count Auto Diff 4 Months D64.9 - Anemia, unspecified Comprehensive [place]. Panel Fast 4 Months E78.00 - Pure hypercholesterolemia, unspecified Lipid Panel 4 Months E78.00 - Pure hypercholesterolemia, unspecified PT Evaluation and Treatment 09/12/25 G81.10 - Spastic hemiplegia affecting unspecified side, G81.91 - Hemiplegia, unspecified affecting right dominant side, I63.9 - Cerebral infarction, unspecified TSH reflex Free T4 4 Months E78.00 - Pure hypercholesterolemia, unspecified UA CC w/rflx Micro + Cult 4 Months R30.0 - Dysuria Vitamin D 25-OH Total 4 Months E55.9 - Vitamin D deficiency, unspecified Vitamin B12 and Folate 4 Months E53.8 - Deficiency of other specified B group vitamins Hemoglobin A1c 4 Months R73.01 - Impaired fasting glucose Medications: New [SHOWER CHAIR] As directed 1 ea 0RF G81.10 - Spastic hemiplegia affecting unspecified side, I63.9 - Cerebral infarction, unspecified [ADULT PULL UPS (Medium)] As directed 100 ea 12RF G81.10 - Spastic hemiplegia affecting unspecified side, I63.9 - Cerebral infarction, unspecified
== END 2025-02-24 17:27 | disposition home or self-care (01) ==
LOC: HO.HMCH 16:16
PROVIDERS: PCP Internal Medicine; Visit Provider Internal Medicine
DX: I63.9 Cerebral infarction, unspecified (principal); G81.91 Hemiplegia, unspecified affecting right dominant side; K22.10 Ulcer of esophagus without bleeding; T17.928A Food in respiratory tract, part unspecified causing other injury, initial encounter; I10 Essential (primary) hypertension; E78.00 Pure hypercholesterolemia, unspecified; R73.01 Impaired fasting glucose; N28.9 Disorder of kidney and ureter, unspecified; D50.9 Iron deficiency anemia, unspecified; E55.9 Vitamin D deficiency, unspecified; F06.30 Mood disorder due to known physiological condition, unspecified

== ENCOUNTER → 2025-02-24 16:15 | Outpatient (BNVA) | payer OTHER, SELFPAY | PROVIDERS: PCP Internal Medicine; Visit Provider Internal Medicine | DX: I69.351 Hemiplegia and hemiparesis following cerebral infarction affecting right dominant side (principal); I69.320 Aphasia following cerebral infarction; I69.398 Other sequelae of cerebral infarction; K22.10 Ulcer of esophagus without bleeding; T17.928A Food in respiratory tract, part unspecified causing other injury, initial encounter; I10 Essential (primary) hypertension; E78.00 Pure hypercholesterolemia, unspecified; R73.01 Impaired fasting glucose; N28.9 Disorder of kidney and ureter, unspecified; D50.9 Iron deficiency anemia, unspecified; E55.9 Vitamin D deficiency, unspecified; Z79.899 Other long term (current) drug therapy | CPT/HCPCS: 99212 ==

== ENCOUNTER 2025-02-28 15:44 | Outpatient (AMB) | payer OTHER, SELFPAY ==
[2025-02-28 15:49] VITALS: BP 135/86; PULSE 62
--- NOTE | 2025-02-28 15:49 | A.OFFVIS_ITS ---
Vital Signs 02/28/25 15:49 Height 5 ft 5 in BP 135/86 Blood Pressure Location Lt brachial Position Sitting Pulse 62 Intake Visit Reasons: dysphagia Allergies No Known Allergies Allergy (Verified 02/28/25 15:51) HPI HPI dysphagia: Details: Assessment & Plan (1) Erosive esophagitis: Code(s): K22.10 - Ulcer of esophagus without bleeding Category: Medical Plan Nikky reardon translates per patient request HE had the EGD and his swallowing is at his baseline. He had a severe case of the Flu and was hospitalized for 3 days. He continues on his pantoprazole. ROV 6 mos. Medications: New omeprazole 20 mg PO BID@0630,1630 60 caps 12RF TODAY'S VISIT Nikky fraser translates per pt request. [facility] Medical History Esophageal ulcer Colon cancer screening Expressive aphasia History of stroke Spastic hemiparesis affecting dominant side Vitamin D deficiency Iron deficiency anemia Right hemiplegia Cerebrovascular accident (CVA) 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) Pure hypercholesterolemia Benign essential hypertension CVA (cerebral vascular accident) Surgical History History of esophagogastroduodenoscopy (EGD) Family History Other Family history non-contributory Social History Household Members: Spouse Housing: House Do you presently have visiting nurse or other home services: No Alcohol intake: former Patient Tobacco Use Status: Never used Tobacco e-Cigarette/Vaping Use: Never Used Second Hand Smoke Exposure: No Advance Directives Date on File: 08/23/24 service: No Current occupational status: disabled Current occupational exposures/hazards: No Cognitive needs: Yes (wheelchair) Hearing needs: No Vision needs: No Review of Systems Const Denies fatigue, Denies fever(s), Denies night sweats, Denies poor appetite and Denies weight loss ENT Reports Normal hearing present, Denies dental pain, Reports dysphagia, Denies hearing loss, Denies mouth pain, Denies odynophagia, Denies throat swelling, Denies tongue swelling and Reports other (Dentition adequate) Card Reports no additional complaints Resp Reports no additional complaints GI Details: Denies abdominal pain, Denies melena, Denies bloating, Denies hematochezia, Denies constipation, Denies GI cramping, Reports dysphagia, Denies excessive flatus, Denies early satiety, Reports heartburn, Denies diarrhea, Denies nausea, Denies odynophagia, Denies vomiting and Denies hematemesis Musc Reports abnormal gait and Reports stiffness Skin/Breast Denies pruritus, Denies lesions, Denies rash and Denies jaundice Neuro Reports Normal hearing present, Denies Abnormal speech present, Reports abnormal gait and Reports focal weakness Endo Denies fatigue Aller/Immun Denies throat swelling and Denies tongue swelling Physical Exam Vital Signs: Last Vital Signs Pulse 62 02/28/25 15:49 BP 135/86 02/28/25 15:49 Const General: cooperative, no acute distress, well developed and well groomed Nutritional Appearance: well nourished, obese and thin Orientation/consciousness: oriented to person, oriented to place and oriented to time Limitations: language barrier and wheelchair HEENT Head: Yes normocephalic and Yes atraumatic Eyes General: appearance normal, both eyes and all related structures Pupils: Equal, round and reactive pupils present Neck Neck: Yes normal visual inspection and Yes no lymphadenopathy Thyroid: Thyroid normal Resp Effort & Inspection: normal respiratory effort and able to speak in complete sentences Auscultation: clear to auscultation bilaterally Cardio Rate: regular rate Rhythm: regular rhythm Heart sounds: Normal, physiologic split S2 sound present Peripheral pulses: radial pulses present and posterior tibial pulses present GI Inspection: No distended and No Abdominal panniculus present Palpation (GI): Soft to palpation, nontender, no guarding, not rigid and No hepatosplenomegaly present Percussion: Yes normal to percussion Auscultation: normal bowel sounds Rectal Exam - Male: Yes deferred Skin General skin exam: no rashes or lesions noted, turgor normal, skin not dry, no jaundice, No spider nevi and no striae Rashes: no rashes Nails: normal Neuro General: oriented to person, oriented to place and oriented to time Cranial nerves: Yes Equal, round and reactive pupils present and Yes Normal hearing present Speech: No Abnormal speech present Extrem General: Yes normal to inspection, No clubbing, No cyanosis and No edema Psych Appearance: grossly normal and well kempt Mental Status: other Speech and movement: Mute speech present Affect: normal affect Attitude: cooperative Thought process: not confabulating and Other thought process findings present Thought content: Normal thought content present Insight: Poor insight present (Psych) Judgement: Poor judgement present (Psych) Assessment & Plan Assessment & Plan (1) Esophageal erosions: Code(s): K22.10 - Ulcer of esophagus without bleeding Category: Medical (2) Esophageal ulcer: Comment: EGD done 03/2022 Code(s): K22.10 - Ulcer of esophagus without bleeding Category: Medical Qualifiers: Esophageal ulcer bleeding: without bleeding Qualified Code(s): K22.10 - Ulcer of esophagus without bleeding Plan He is on omeprazole 20 mg twice a day. He is here today with his who is his primary technical program manager. - The patient is a 59-year-old male presenting with a routine follow-up for management of GERD. - GERD is currently well-controlled with omeprazole therapy. The patient has not reported any new or worsening symptoms since onset, and he continues to take his medication as prescribed. - Neurologic issues are present, with minor difficulty in swallowing but currently stable. The patient is managing these symptoms without significant complaint. Return office visit in 6 months Medications: Refilled omeprazole 20 mg PO BID@0630,1630 60 caps 12RF Coding Level of Care Code Est Pt Level 3 (94193) Diagnoses Esophageal erosions K22.10 Ulcer of esophagus without bleeding K22.10 Esophageal ulcer bleeding: without bleeding
== END 2025-02-28 16:06 | disposition home or self-care (01) ==
LOC: HO.HGI 15:45
PROVIDERS: PCP Internal Medicine; Visit Provider Nurse Practitioner
DX: K22.10 Ulcer of esophagus without bleeding (principal)
CPT/HCPCS: 99213

== ENCOUNTER → 2025-02-28 15:44 | Outpatient (BNVA) | payer OTHER, SELFPAY | PROVIDERS: PCP Internal Medicine; Visit Provider Nurse Practitioner | DX: K22.10 Ulcer of esophagus without bleeding (principal) | CPT/HCPCS: 99212 ==